=== PATIENT | male | born 1940 | race Caucasian/White ===

== ENCOUNTER 2018-10-10 22:35 | Inpatient (IN) | payer MEDICARE, OTHER ==
[2018-10-10 23:31] LABS: Albumin 4.1 g/dL (3.5-5.0); Calcium 9.9 mg/dL (8.4-10.2); Total Bilirubin 1.7 mg/dL (0.2-1.3); Total Protein 7.8 g/dL (6.3-8.2)
[2018-10-10 23:32] LABS: Anisocytosis Moderate; Basophils % (A) 0 %; Eosinophils % (A) 0 %; HCT 40.1 % (39.0-53.0); HGB 12.5 gm/dL (13.0-17.5); Lymphocytes # (A) 0.5 k/uL (1.0-4.8); Lymphocytes % (A) 5 %; MCHC 31.1 g/dL (31.0-37.0); MCV 93.2 fL (80.0-100.0); Macrocytosis Slight; Mean Platelet Volume 8.9; Monocytes # (A) 0.6 k/uL (0-1.0); Monocytes % (A) 6 %; Neutrophils # (A) 9.3 k/uL (1.3-7.7); Neutrophils % (A) 87 %; Platelet Count 108 k/uL (150-450); WBC 10.7 k/uL (3.8-10.6)
[2018-10-10 23:45] LABS: INR 2.8 (<1.2); Partial Thromboplastin Time 35.2 sec (22.0-30.0); Prothrombin Time 27.3 sec (9.0-12.0)
[2018-10-10 23:47] LABS: D-Dimer 0.96 mg/L FEU (<0.60)
[2018-10-10 23:48] LABS: Potassium 6.3 mmol/L (3.5-5.1)
--- NOTE | 2018-10-10 23:51 | XR ---
ADDENDUM - Added by Smauel Rojas MD on 10/10/2018 11:51 PM (-04:00) Correction of voice recognition typographical error: Previous median sternotomy and CARDIAC surgery. Cardiac pacer. EXAM: XR Chest, 1 View CLINICAL HISTORY: ITS.REASON XR Reason: dyspnea TECHNIQUE: Frontal view of the chest. COMPARISON: Portable chest radiograph 05/29/2014 FINDINGS: Post surgical changes of previous median sternotomy and cardiac surgery. Cardiac pacer has leads extending to region of right atrium and ventricle. Moderate cardiomegaly. Mild pulmonary vascular congestion. Left basilar consolidative opacity. Mild right base subsegmental atelectasis. Minimal right and small left pleural effusions. No evidence of pneumothorax. IMPRESSION: Previous median sternotomy and chronic surgery. Cardiac pacer. Cardiomegaly and mild pulmonary vascular congestion. Left base consolidative opacity suggesting infiltrate or atelectasis. Possibility of pneumonia should be considered. Minimal right and small left pleural effusions. <MYCVCSECTION> [employer] 10/10/18 23:58 Verify Receipt Verified receipt with PATRICK Chakraborty for Dr HOFF in the ER on 10/10 23:57 (-04:00)
[2018-10-11] MEDS ORDERED: INSULIN REGULAR 100 UNIT/ML VIAL IV STA (00:45)
[2018-10-11] MEDS ORDERED: DEXTROSE 50% SYRINGE 50 ML IVP STA (00:45)
[2018-10-11] MEDS ORDERED: SODIUM BICARB 8.4% 50 ML SYR (1 MEQ/ML) IV STA (00:45)
[2018-10-11] MEDS ORDERED: CALCIUM GLUCONATE 1 GM in SODIUM CHLORIDE 0.9% 100 ML IVPB ONE (00:45)
[2018-10-11] MEDS ORDERED: SODIUM POLYSTYRENE SULFONATE 15 GM/60 ML BOTTLE PO STA (00:46)
[2018-10-11] MEDS ORDERED: LEVOFLOXACIN 750 MG TAB PO STA (00:48)
[2018-10-11] MEDS ORDERED: PIPERACILLIN-TAZOBACTAM 3.375 GM in SODIUM CHLORIDE 0.9% 100 ML IVPB STA (00:48)
--- NOTE | 2018-10-11 00:55 | ED ---
SOB HPI - General Chief Complaint: Shortness of Breath Stated Complaint: RAHEEL Time Seen by Provider: 10/10/18 22:48 Source: patient, EMS Mode of arrival: EMS - History of Present Illness Initial Comments: This patient is 77-year-old man, [facility], transferred here to be evaluated for worsening shortness of breath and cough with some sputum. There is concern of worsening of underlying CHF. In addition, the patient's physician Dr. Mcadams had called to state that he had started diuretic [facility] the [facility] but the patient did not seem to be having any improvement. The patient denies chest pain. He does acknowledge dyspnea and also cough with a little bit of sputum. No noted fever or chills. No change in urination or bowel movements. MD Complaint: shortness of breath, cough Onset/Timin -: days(s) Severity: mild Consistency: constant Improves With: nothing Worsens With: nothing Known History Of: COPD, congestive heart failure Associated Symptoms: cough Treatments Prior to Arrival: none - Related Data Home Oxygen Therapy: No Home Medications Medication Instructions Recorded Confirmed Cholecalciferol [Vitamin D3 (25 1,000 unit PO DAILY@169905/26/14 10/10/18 Mcg = 1000 Iu)] Citalopram Hydrobromide [CeleXA] 10 mg PO DAILY 05/26/14 10/10/18 Cyanocobalamin [Vitamin B-12] 1,000 mcg PO DAILY 05/26/14 10/10/18 Docusate [Colace] 100 mg PO DAILY 05/26/14 10/10/18 Isosorbide Mononitrate ER [Imdur] 60 mg PO BID@0800,169905/26/14 10/10/18 Metoprolol Tartrate [Lopressor] 100 mg PO BID@0800,0 05/26/14 10/10/18 Nitroglycerin Sl Tabs [Nitrostat] 0.4 mg SUBLINGUAL Q5M PRN 05/26/14 10/10/18 Ranolazine [Ranexa] 500 mg PO BID@0800,1700 05/26/14 10/10/18 Simvastatin [Zocor] 20 mg PO HS 05/26/14 10/10/18 Sodium Chloride [Saline Nasal Mist] 1 spray EA NOSTRIL 05/26/14 10/10/18 Spironolactone [Aldactone] 25 mg PO DAILY 05/26/14 10/10/18 Acetaminophen Tab [Tylenol] 1,000 mg PO HS PRN 10/10/18 10/10/18 Aspirin 81 mg PO DAILY@1700 10/10/18 10/10/18 Bisacodyl [Dulcolax] 10 mg RECTAL DAILY PRN 10/10/18 10/10/18 Carboxymethylcellulose Sodium 2 drop BOTH EYES DAILY PRN 10/10/18 10/10/18 [Refresh Tears] Fluticasone Nasal [place] [Flonase 1 spray EA NOSTRIL DAILY 10/10/18 10/10/18 Nasal [place]] Fluticasone/Vilanterol [Breo 1 puff INHALATION RT-DAILY@0800 10/10/18 10/10/18 Ellipta 100-25 Mcg Inhaler] Furosemide [Lasix] 40 mg PO DAILY 10/10/18 10/10/18 Gabapentin [Neurontin] 300 mg PO DAILY 10/10/18 10/10/18 Loratadine [Claritin] 10 mg PO DAILY PRN 10/10/18 10/10/18 Magnesium Hydroxide [Milk of 7,200 mg PO DAILY PRN 10/10/18 10/10/18 Magnesia Concentrate] Na Phos,M-B/Na Phos,Di-Ba [Fleet 133 ml RECTAL DAILY PRN 10/10/18 10/10/18 Adult] Nasal Gel 1 applic EA NOSTRIL DAILY PRN 10/10/18 10/10/18 Potassium Chloride [Klor-Con 10] 10 meq PO DAILY@0800 10/10/18 10/10/18 Warfarin Sodium [Coumadin] 2 mg PO SUTUWEFRSA 10/10/18 10/10/18 Warfarin [Coumadin] 3 mg PO MOTH 10/10/18 10/10/18 guaiFENesin [guaiFENesin Oral 200 mg PO Q4H PRN 10/10/18 10/10/18 Solution] metFORMIN HCL [Glucophage] 500 mg PO BID@0800,1700 10/10/18 10/10/18 Previous Rx's Medication Instructions Recorded Allopurinol [Zyloprim] 100 mg PO DAILY tab 05/30/14 Lisinopril [Zestril] 5 mg PO DAILY tab 05/30/14 Allergies Allergy/AdvReac Type Severity Reaction Status Date / Time No Known Allergies Allergy Verified 10/10/18 22:55 Review of Systems ROS Statement: Those systems with pertinent positive or pertinent negative responses have been documented in the HPI. ROS Other: All systems not noted in ROS Statement are negative. Constitutional: Denies: fever, chills Respiratory: Reports: cough, dyspnea Cardiovascular: Denies: chest pain, palpitations, orthopnea, edema, syncope Gastrointestinal: Denies: abdominal pain, vomiting, diarrhea Genitourinary: Denies: dysuria, hematuria Musculoskeletal: Denies: back pain Skin: Denies: rash Neurological: Denies: headache, weakness, numbness Past Medical History Past Medical History: Coronary Artery Disease (CAD), CVA/TIA, Diabetes Mellitus, Myocardial Infarction ([place]) Additional Past Medical History / Comment(s): Congestive heart failure and cardiomyopathy Last Myocardial Infarction Date:: 1999 History of Any Multi-Drug Resistant Organisms: None Reported Past Surgical History: Appendectomy, Coronary Bypass/CABG, Tonsillectomy Additional Past Surgical History / Comment(s): CABG x5 1994 Past Anesthesia/Blood Transfusion Reactions: No Reported Reaction Past Psychological History: No Psychological Hx Reported Smoking Status: Former smoker Past Alcohol Use History: None Reported Past Drug Use History: None Reported - Past Family History Mother Family Medical History: Chest Pain / Angina, Coronary Artery Disease (CAD) General Exam General appearance: alert, in no apparent distress Head exam: Present: atraumatic, normocephalic Neck exam: Present: normal inspection Respiratory exam: Present: rales (Left lower lung), rhonchi. Absent: r espiratory distress, wheezes, stridor, accessory muscle use, decreased breath sounds, prolonged expiratory Cardiovascular Exam: Present: regular rate, normal rhythm, normal heart sounds. Absent: systolic murmur, diastolic murmur, rubs, gallop GI/Abdominal exam: Present: soft. Absent: distended, tenderness, guarding, rebound, rigid, mass Extremities exam: Present: normal inspection, normal capillary refill. Absent: pedal edema, calf tenderness Back exam: Present: normal inspection. Absent: CVA tenderness (R), CVA tenderness (L) Neurological exam: Present: alert Skin exam: Present: warm, dry, normal color, other. Absent: rash Course Vital Signs 0710/10/18 10/11/18 22:37 23:30 00:00 Temperature 97.6 F Pulse Rate 79 90 92 Respiratory 23 19 18 Rate Blood Pressure 104/73 128/77 101/85 O2 Sat by Pulse 99 96 97 Oximetry 10/11/18 10/11/18 01:30 02:00 Temperature Pulse Rate 94 90 Respiratory 18 19 Rate Blood Pressure 93/63 107/46 O2 Sat by Pulse 96 96 Oximetry - Reevaluation(s) Reevaluation #1: 10/11/18 01:38 I received a call from Dr. Mcadams, requesting admission tonight under Dr. Silva, with consultations to pulmonology and to cardiology. Reevaluation #2: 10/11/18 01:50 Patient is found to have mildly elevated d-dimer but the Coumadin level supratherapeutic. Medical Decision Making - Lab Data Result diagrams: 10/15/18 06:16 10/15/18 06:16 Lab Results 10/10/18 10/10/18 10/10/18 Range/Units 11:11 23:04 23:04 WBC 10.7 H (3.8-10.6) k/uL RBC 4.30 (4.30-5.90) m/uL Hgb 12.5 L (13.0-17.5) gm/dL Hct 40.1 (39.0-53.0) % MCV 93.2 (80.0-100.0) fL MCH 29.0 (25.0-35.0) pg MCHC 31.1 (31.0-37.0) g/dL RDW 22.0 H (11.5-15.5) % Plt Count 108 L (150-450) k/uL Neutrophils % 87 % Lymphocytes % 5 % Monocytes % 6 % Eosinophils % 0 % Basophils % 0 % Neutrophils # 9.3 H (1.3-7.7) k/uL Lymphocytes # 0.5 L (1.0-4.8) k/uL Monocytes # 0.6 (0-1.0) k/uL Eosinophils # 0.0 (0-0.7) k/uL Basophils # 0.0 (0-0.2) k/uL Anisocytosis Moderate Macrocytosis Slight PT (9.0-12.0) sec INR (<1.2) APTT (22.0-30.0) sec D-Dimer (<0.60) mg/L FEU Sodium 135 L (137-145) mmol/L Potassium 6.3 H* (3.5-5.1) mmol/L Chloride 104 (98-107) mmol/L Carbon Dioxide 20 L (22-30) mmol/L Anion Gap 11 mmol/L BUN 77 H (9-20) mg/dL Creatinine 1.78 H (0.66-1.25) mg/dL Est GFR (CKD-EPI)AfAm 42 (>60 ml/min/1.73 sqM) Est GFR (CKD-EPI)NonAf 36 (>60 ml/min/1.73 sqM) Glucose 110 H (74-99) mg/dL Calcium 9.9 (8.4-10.2) mg/dL Total Bilirubin 1.7 H (0.2-1.3) mg/dL AST 49 (17-59) U/L ALT 29 (21-72) U/L Alkaline Phosphatase 202 H (38-126) U/L Troponin I (0.000-0.034) ng/mL NT-Pro-B Natriuret Pep pg/mL Total Protein 7.8 (6.3-8.2) g/dL Albumin 4.1 (3.5-5.0) g/dL Urine Color Yellow Urine Appearance Clear (Clear) Urine pH 5.0 (5.0-8.0) Ur Specific [place] 1.015 (1.001-1.035) Urine Protein Negative (Negative) Urine Glucose (UA) Negative (Negative) Urine Ketones Negative (Negative) Urine Blood Negative (Negative) Urine Nitrite Negative (Negative) Urine Bilirubin Negative (Negative) Urine Urobilinogen <2.0 (<2.0) mg/dL Ur Leukocyte Esterase Negative (Negative) 10/10/18 10/10/18 10/10/18 Range/Units 23:04 23:04 23:04 WBC (3.8-10.6) k/uL RBC (4.30-5.90) m/uL Hgb (13.0-17.5) gm/dL Hct (39.0-53.0) % MCV (80.0-100.0) fL MCH (25.0-35.0) pg MCHC (31.0-37.0) g/dL RDW (11.5-15.5) % Plt Count (150-450) k/uL Neutrophils % % Lymphocytes % % Monocytes % % Eosinophils % % Basophils % % Neutrophils # (1.3-7.7) k/uL Lymphocytes # (1.0-4.8) k/uL Monocytes # (0-1.0) k/uL Eosinophils # (0-0.7) k/uL Basophils # (0-0.2) k/uL Anisocytosis Macrocytosis PT 27.3 H (9.0-12.0) sec INR 2.8 H (<1.2) APTT 35.2 H (22.0-30.0) sec D-Dimer 0.96 H (<0.60) mg/L FEU Sodium (137-145) mmol/L Potassium (3.5-5.1) mmol/L Chloride (98-107) mmol/L Carbon Dioxide (22-30) mmol/L Anion Gap mmol/L BUN (9-20) mg/dL Creatinine (0.66-1.25) mg/dL Est GFR (CKD-EPI)AfAm (>60 ml/min/1.73 sqM) Est GFR (CKD-EPI)NonAf (>60 ml/min/1.73 sqM) Glucose (74-99) mg/dL Calcium (8.4-10.2) mg/dL Total Bilirubin (0.2-1.3) mg/dL AST (17-59) U/L ALT (21-72) U/L Alkaline Phosphatase (38-126) U/L Troponin I 0.016 (0.000-0.034) ng/mL NT-Pro-B Natriuret Pep 28264 pg/mL Total Protein (6.3-8.2) g/dL Albumin (3.5-5.0) g/dL Urine Color Urine Appearance (Clear) Urine pH (5.0-8.0) Ur Specific [place] (1.001-1.035) Urine Protein (Negative) Urine Glucose (UA) (Negative) Urine Ketones (Negative) Urine Blood (Negative) Urine Nitrite (Negative) Urine Bilirubin (Negative) Urine Urobilinogen (<2.0) mg/dL Ur Leukocyte Esterase (Negative) - EKG Data -: EKG Interpreted by Me Rate: normal (Underlying rhythm appears to be paced the rate is proximal 90 bpm) Disposition Clinical Impression: Pneumonia, Hyperkalemia, CHF (congestive heart failure), Acute kidney injury, D-dimer, elevated Disposition: ADMITTED IP TO THIS HOSP Condition: Poor Is patient prescribed a controlled substance at d/c from ED?: No
[2018-10-11] MEDS ORDERED: BISACODYL 10 MG SUPP RECTAL PRN (01:46)
[2018-10-11] MEDS ORDERED: NITROGLYCERIN SL TABS 0.4 MG TAB SUBLINGUAL PRN (01:46)
[2018-10-11] MEDS ORDERED: MAGNESIUM HYDROXIDE 2,400 MG/10 ML CUP PO PRN (01:46)
[2018-10-11] MEDS ORDERED: CARBOXYMETHYLCELLULOSE SODIUM BOTH EYES PRN (01:46)
[2018-10-11 03:16] VITALS: BMI 31.6
[2018-10-11 06:15] LABS: Glucose,Whole Blood 92 mg/dL (75-99)
[2018-10-11] MEDS: SYMBICORT 80-4.5 MCG INHALER INHALATION SCH ×2 (07:46→19:54)
[2018-10-11 07:50] LABS: Calcium 9.9 mg/dL (8.4-10.2); Potassium 5.2 mmol/L (3.5-5.1)
[2018-10-11] MEDS ORDERED: ISOSORBIDE MONONITRATE ER 60 MG TAB.ER.24H PO SCH (08:00)
[2018-10-11 08:43] LABS: Anisocytosis Moderate; Basophils % (A) 0 %; Eosinophils # (A) 0.1 k/uL (0-0.7); Eosinophils % (A) 1 %; HCT 37.6 % (39.0-53.0); HGB 11.6 gm/dL (13.0-17.5); Hypochromasia Moderate; Lymphocytes # (A) 0.6 k/uL (1.0-4.8); Lymphocytes % (A) 6 %; MCH 29.1 pg (25.0-35.0); MCHC 30.9 g/dL (31.0-37.0); Macrocytosis Slight; Mean Platelet Volume 9.1; Monocytes # (A) 0.7 k/uL (0-1.0); Monocytes % (A) 7 %; Neutrophils # (A) 8.3 k/uL (1.3-7.7); Neutrophils % (A) 84 %; Platelet Count 92 k/uL (150-450); RDW 22.9 % (11.5-15.5); WBC 9.9 k/uL (3.8-10.6)
[2018-10-11] MEDS ORDERED: SPIRONOLACTONE 25 MG TAB PO SCH (09:00)
[2018-10-11] MEDS ORDERED: FUROSEMIDE 40 MG TAB PO SCH (09:00)
[2018-10-11] MEDS: CYANOCOBALAMIN 500 MCG TAB PO SCH (09:27)
[2018-10-11] MEDS: GABAPENTIN 300 MG CAP PO SCH (09:28)
[2018-10-11] MEDS: metFORMIN 500 MG TAB PO SCH ×2 (09:28→17:06)
[2018-10-11] MEDS: LISINOPRIL 5 MG TAB PO SCH (09:28)
[2018-10-11] MEDS: DOCUSATE 100 MG CAP PO SCH (09:28)
[2018-10-11] MEDS: METOPROLOL TARTRATE 50 MG TAB PO SCH ×2 (09:28→17:05)
[2018-10-11] MEDS: PIPERACILLIN-TAZOBACTAM 3.375 GM in SODIUM CHLORIDE 0.9% 100 ML IVPB SCH ×3 (09:29→23:16)
[2018-10-11 10:30] LABS: Poikilocytosis (M) Present; Target Cells Present
[2018-10-11] MEDS ORDERED: FUROSEMIDE 10 MG/ML 4 ML VIAL ONE (10:31)
[2018-10-11] MEDS ORDERED: FUROSEMIDE 10 MG/ML 4 ML VIAL IV STA (10:43)
--- NOTE | 2018-10-11 11:06 | P.CRDCN ---
History of Present Illness Consult date: 10/11/18 Requesting physician: Josie Silva Consult reason: congestive heart failure Chief complaint: Shortness of breath History of present illness: This is a 77-year-old gentleman with history of ischemic heart disease and prior bypass surgery, history of prior pacemaker implantation, acute on chronic renal failure, ischemic cardio myopathy, prior TIA, diabetes, hypertension, hyperlipidemia, presents to the hospital on this occasion with symptoms of progressively worsening shortness of breath. Patient was initiated on diuretics in the shelter, his symptoms did not seem to improve and for this reason he was advised to come to the hospital for further evaluation and treatment. Chest x-ray showed cardiomegaly and mild pulmonary vascular congestion, left base consolidative [place] suggests possible infiltrate. EKG on presentation here shows a ventricular paced rhythm. Blood pressure 108/46 with a heart rate of 90, 96% on 5 L of oxygen. White blood cell count 10.7, hemoglobin 12.5, platelet count 108. D-dimer 0.9, INR 3.0, sodium 135, potassium 6.3, BUN 77 and creatinine 1.7, total bilirubin 1.7, alk phos 202, troponin 0.016, BNP level 18,100. Patient had not been initiated on IV Lasix on presentation here, he is treated currently with antibiotics at the time of my examination this morning, patient complaining of feeling significantly short of breath. Past Medical History Past Medical History: Coronary Artery Disease (CAD), CVA/TIA, Diabetes Mellitus, Myocardial Infarction ([place]) Additional Past Medical History / Comment(s): Congestive heart failure and cardiomyopathy, Pacemaker (unsure of insertion date) Last Myocardial Infarction Date:: 1999 History of Any Multi-Drug Resistant Organisms: None Reported Past Surgical History: Appendectomy, Coronary Bypass/CABG, Tonsillectomy Additional Past Surgical History / Comment(s): CABG x5 1994 Past Anesthesia/Blood Transfusion Reactions: No Reported Reaction Past Psychological History: No Psychological Hx Reported Smoking Status: Former smoker Past Alcohol Use History: None Reported Past Drug Use History: None Reported - Past Family History Mother Family Medical History: Chest Pain / Angina, Coronary Artery Disease (CAD) Medications and Allergies Home Medications Medication Instructions Recorded Confirmed Type Cholecalciferol [Vitamin D3 (25 1,000 unit PO DAILY@1700 05/26/14 10/10/18 History Mcg = 1000 Iu)] Citalopram Hydrobromide [CeleXA] 10 mg PO DAILY 05/26/14 10/10/18 History Cyanocobalamin [Vitamin B-12] 1,000 mcg PO DAILY 05/26/14 10/10/18 History Docusate [Colace] 100 mg PO DAILY 05/26/14 10/10/18 History Isosorbide Mononitrate ER [Imdur] 60 mg PO BID@0800,1700 05/26/14 10/10/18 History Metoprolol Tartrate [Lopressor] 100 mg PO BID@0800,1700 05/26/14 10/10/18 History Nitroglycerin Sl Tabs [Nitrostat] 0.4 mg SUBLINGUAL Q5M PRN 05/26/14 10/10/18 History Ranolazine [Ranexa] 500 mg PO BID@0800,1700 05/26/14 10/10/18 History Simvastatin [Zocor] 20 mg PO HS 05/26/14 10/10/18 History Sodium Chloride [Saline Nasal Mist] 1 spray EA NOSTRIL HS 05/26/14 10/10/18 History Spironolactone [Aldactone] 25 mg PO DAILY 05/26/14 10/10/18 History Allopurinol [Zyloprim] 100 mg PO DAILY tab 05/30/14 10/10/18 Rx Lisinopril [Zestril] 5 mg PO DAILY tab 05/30/14 10/10/18 Rx Acetaminophen Tab [Tylenol] 1,000 mg PO HS PRN 10/10/18 10/10/18 History Aspirin 81 mg PO DAILY@1700 10/10/18 10/10/18 History Bisacodyl [Dulcolax] 10 mg RECTAL DAILY PRN 10/10/18 10/10/18 History Carboxymethylcellulose Sodium 2 drop BOTH EYES DAILY PRN 10/10/18 10/10/18 History [Refresh Tears] Fluticasone Nasal [place] [Flonase 1 spray EA NOSTRIL DAILY 10/10/18 10/10/18 History Nasal [place]] Fluticasone/Vilanterol [Breo 1 puff INHALATION RT-DAILY@0800 10/10/18 10/10/18 History Ellipta 100-25 Mcg Inhaler] Furosemide [Lasix] 40 mg PO DAILY 10/10/18 10/10/18 History Gabapentin [Neurontin] 300 mg PO DAILY 10/10/18 10/10/18 History Loratadine [Claritin] 10 mg PO DAILY PRN 10/10/18 10/10/18 History Magnesium Hydroxide [Milk of 7,200 mg PO DAILY PRN 10/10/18 10/10/18 History Magnesia Concentrate] Na Phos,M-B/Na Phos,Di-Ba [Fleet 133 ml RECTAL DAILY PRN 10/10/18 10/10/18 History Adult] Nasal Gel 1 applic EA NOSTRIL DAILY PRN 10/10/18 10/10/18 History Potassium Chloride [Klor-Con 10] 10 meq PO DAILY@0800 10/10/18 10/10/18 History Warfarin Sodium [Coumadin] 2 mg PO SUTUWEFRSA 10/10/18 10/10/18 History Warfarin [Coumadin] 3 mg PO MOTH 10/10/18 10/10/18 History guaiFENesin [guaiFENesin Oral 200 mg PO Q4H PRN 10/10/18 10/10/18 History Solution] metFORMIN HCL [Glucophage] 500 mg PO BID@0800,1700 10/10/18 10/10/18 History Allergies Allergy/AdvReac Type Severity Reaction Status Date / Time No Known Allergies Allergy Verified 10/10/18 22:55 Physical Exam Vitals: Vital Signs Temp Pulse Pulse Resp BP BP Pulse Ox 10/11/18 04:00 97.6 F 88 22 99/60 92 L 10/11/18 03:03 98.4 F 96 23 105/72 96 10/11/18 02:00 90 19 107/46 96 10/11/18 01:30 94 18 93/63 96 10/11/18 00:00 92 18 101/85 97 10/10/18 23:30 90 19 128/77 96 10/10/18 22:37 97.6 F 79 23 104/73 99 Intake and Output 10/10/18 10/11/18 10/11/18 22:59 06:59 14:59 Intake Total 290 240 Output Total 250 350 Balance 40 -110 Intake: IV 30 0.9 20 Invasive Line 1 10 Intake, IV Titration 200 Amount Calcium Gluconate 1 gm In 100 Sodium Chloride 0.9% 100 ml @ 100 mls/hr IVPB ONCE ONE Rx#:[id number] Piperacillin-Tazobactam 3 100 .375 gm In Sodium Chloride 0.9% 100 ml @ 25 mls/hr IVPB Q8HR [facility] Rx# :[id number] Oral 60 240 Output: Urine 250 350 Other: Voiding Method Urinal Diaper # Voids 1 1 Weight 104.326 kg 106 kg PHYSICAL EXAMINATION: GENERAL: 77-year-old gentleman, complaining of feeling short of breath at the time of my examination HEENT: Head is atraumatic, normocephalic. Pupils equal, round. Sclera anicteric. Conjunctiva are clear. Mucous membranes of the mouth are moist. Neck is supple. There is elevated jugular venous pressure. No carotid bruit is heard. HEART EXAMINATION: Heart S1, S2 normal. No murmur or gallop heard. CHEST EXAMINATION: Lungs reveal diminished air entry bilaterally with rales heard bilaterally. ABDOMEN: Soft, nontender. Bowel sounds are heard. No organomegaly noted. EXTREMITIES:[ 2+ peripheral pulses with 1-2+ evidence of peripheral edema NEUROLOGIC patient is awake, alert and oriented 3 . . Results 10/11/18 07:08 10/11/18 07:08 Cardiac Enzymes 10/10/18 10/10/18 Range/Units 23:04 23:04 AST 49 (17-59) U/L Troponin I 0.016 (0.000-0.034) ng/mL Coagulation 10/10/18 10/11/18 Range/Units 23:04 07:08 PT 27.3 H 29.0 H (9.0-12.0) sec APTT 35.2 H (22.0-30.0) sec CBC 10/10/18 10/11/18 Range/Units 23:04 07:08 WBC 10.7 H 9.9 (3.8-10.6) k/uL RBC 4.30 4.00 L (4.30-5.90) m/uL Hgb 12.5 L 11.6 L (13.0-17.5) gm/dL Hct 40.1 37.6 L (39.0-53.0) % Plt Count 108 L 92 L (150-450) k/uL Comprehensive Metabolic Panel 10/10/18 10/11/18 Range/Units 23:04 07:08 Sodium 135 L 136 L (137-145) mmol/L Potassium 6.3 H* 5.2 H (3.5-5.1) mmol/L Chloride 104 106 (98-107) mmol/L Carbon Dioxide 20 L 18 L (22-30) mmol/L BUN 77 H 71 H (9-20) mg/dL Creatinine 1.78 H 1.63 H (0.66-1.25) mg/dL Glucose 110 H 84 (74-99) mg/dL Calcium 9.9 9.9 (8.4-10.2) mg/dL AST 49 (17-59) U/L ALT 29 (21-72) U/L Alkaline Phosphatase 202 H (38-126) U/L Total Protein 7.8 (6.3-8.2) g/dL Albumin 4.1 (3.5-5.0) g/dL Current Medications Generic Name Dose Route Start Last Admin Trade Name Freq PRN Reason Stop Dose Admin Acetaminophen 1,000 mg 10/11/18 01:46 Tylenol Tab PO HS PRN Pain Aspirin 81 mg 10/11/18 17:00 Aspirin PO DAILY@1700 [facility] Atorvastatin Calcium 10 mg 10/11/18 21:00 Lipitor PO HS GRACE Bisacodyl 10 mg 10/11/18 01:46 Dulcolax RECTAL DAILY PRN Constipation Budesonide/Formoterol Fumarate 2 puff 10/11/18 08:00 10/11/18 07:46 Symbicort 80-4.5 Mcg Inhaler INHALATION 2 puff RT-BID GRACE Administration Cholecalciferol 1,000 unit 10/11/18 17:00 Vitamin D3 (25 Mcg = 1000 Iu) PO DAILY@1700 [facility] Cyanocobalamin 1,000 mcg 10/11/18 09:00 10/11/18 09:27 Vitamin B-12 PO 1,000 mcg DAILY [facility] Administration Docusate Sodium 100 mg 10/11/18 09:00 10/11/18 09:28 Colace PO 100 mg DAILY [facility] Administration Furosemide 40 mg 10/11/18 09:00 10/11/18 09:28 Lasix PO 40 mg DAILY [facility] Administration Gabapentin 300 mg 10/11/18 09:00 10/11/18 09:28 Neurontin PO 300 mg DAILY [facility] Administration Piperacillin Sod/Tazobactam 100 mls @ 25 mls/hr 10/11/18 08:00 10/11/18 09:29 Sod 3.375 gm/ Sodium Chloride IVPB 25 mls/hr Q8HR [facility] Administration Isosorbide Mononitrate 60 mg 10/11/18 08:00 10/11/18 09:28 Imdur PO 60 mg BID@0800,1700 [facility] Administration Levofloxacin 750 mg 10/13/18 01:00 Levaquin PO Q48H [facility] Lisinopril 5 mg 10/11/18 09:00 10/11/18 09:28 Zestril PO 5 mg DAILY [facility] Administration Magnesium Hydroxide 2,400 mg 10/11/18 01:46 Milk Of Magnesia PO DAILY PRN Constipation Metformin HCl 500 mg 10/11/18 08:00 10/11/18 09:28 Glucophage PO 500 mg BID@0800,1700 [facility] Administration Metoprolol Tartrate 100 mg 10/11/18 08:00 10/11/18 09:28 Lopressor PO 100 mg BID@0800,1700 [facility] Administration Sodium Chloride 10 ml 10/11/18 09:00 10/11/18 09:29 Saline Flush IV 10 ml BID [facility] Administration Spironolactone 25 mg 10/11/18 09:00 10/11/18 09:28 Aldactone PO 25 mg DAILY [facility] Administration Warfarin Sodium 2 mg 10/11/18 18:00 Coumadin PO SuTuWeFrSa@1800 [facility] Warfarin Sodium 3 mg 10/12/18 18:00 Coumadin PO MoTh@1800 [facility] Intake and Output 10/10/18 10/11/18 10/11/18 22:59 06:59 14:59 Intake Total 290 240 Output Total 250 350 Balance 40 -110 Intake: IV 30 0.9 20 Invasive Line 1 10 Intake, IV Titration 200 Amount Calcium Gluconate 1 gm In 100 Sodium Chloride 0.9% 100 ml @ 100 mls/hr IVPB ONCE ONE Rx#:[id number] Piperacillin-Tazobactam 3 100 .375 gm In Sodium Chloride 0.9% 100 ml @ 25 mls/hr IVPB Q8HR [facility] Rx# :[id number] Oral 60 240 Output: Urine 250 350 Other: Voiding Method Urinal Diaper # Voids 1 1 Weight 104.326 kg 106 kg 10/11/18 07:08 10/11/18 07:08 EKG Interpretations (text) EKG shows a ventricular paced rhythm. Assessment and Plan Plan: Assessment and plan #1 symptoms of progressively worsening shortness of breath with associated bilateral edema, likely exacerbation of congestive heart failure, diastolic in nature, with associated possible pneumonia #2 known history of coronary artery disease with prior bypass surgery #3 hypertension #4 diabetes #5 hyperlipidemia #6 history of permanent pacemaker implantation in 2014 for complete heart block #7 acute on chronic renal failure #8 prior TIA Plan We will give the patient one time dose of IV Lasix and start the patient on 40 mg of IV Lasix twice a day. Monitor intake and output along with daily weights and daily lytes BUN and creatinine. Further recommendations to follow. DNP note has been reviewed, I agree with a documented findings and plan of care. Patient was seen and examined.
--- NOTE | 2018-10-11 11:37 | ECHOF ---
Referral Reason:CHF exacerbation MEASUREMENTS -------- HEIGHT: 182.9 cm WEIGHT: 104.3 kg BP: 99/60 RVIDd: 3.3 cm (< 3.3) IVSd: 1.1 cm (0.6 - 1.1) LVIDd: 5.3 cm (3.9 - 5.3) LVPWd: 1.1 cm (0.6 - 1.1) IVSs: 1.2 cm LVIDs: 4.9 cm LVPWs: 1.5 cm LAESV Index (A-L): 27.39 ml/m Ao Diam: 3.2 cm (2.0 - 3.7) AV Cusp: 1.4 cm (1.5 - 2.6) LA Diam: 3.7 cm (2.7 - 3.8) MV EXCURSION: 14.837 mm (> 18.000) MV EF SLOPE: 166 mm/s (70 - 150) EPSS: 1.5 cm MV E Billy: 0.83 m/s MV DecT: 189 ms MV A Billy: 0.86 m/s MV E/A Ratio: 0.96 AV maxP.20 mmHg AV meanP.34 mmHg RAP: 5.00 mmHg RVSP: 52.51 mmHg FINDINGS -------- Sinus rhythm with extra systolic beats. This was a technically difficult study with suboptimal views. The left ventricular size is normal. There is mild concentric left ventricular hypertrophy. There is moderate global hypokinesis of LV . Overall left ventricular systolic function is severely impa ired with, an EF between 20 - 25 %. Mitral Doppler inflow pattern suggests diastolic filling abnorm ality 15.25. Septal wall motion is delayed and consistent with prior cardiac surgery. The right ventricle is mildly enlarged. Normal LA size by volume 22+/-6 ml/m2. The right atrium is moderately enlarged. Electronic pacemaker lead seen in the right atrial cavity. Lumason used Interatrial and interventricular septum intact. There is szydladc-aq-ehvqpv aortic stenosis present. Peak/mean gradient across the Aortic Valve is 37.20mmHg / 23.34mmHg. Mild mitral annular calcification present. Munt-ye-rglgcugq mitral regurgitation is present. Moderate tricuspid regurgitation present. There is moderate pulmonary hypertension. The right austyn tricular systolic pressure, as measured by Doppler, is 52.51mmHg. There is no pulmonic regurgitation present. The aortic root size is normal. Normal inferior vena cava with normal inspiratory collapse consistent with estimated right atrial pre ssure of 5 mmHg. There is no pericardial effusion. CONCLUSIONS -------- 1. Sinus rhythm with extra systolic beats. 2. This was a technically difficult study with suboptimal views. 3. The left ventricular size is normal. 4. There is mild concentric left ventricular hypertrophy. 5. There is moderate global hypokinesis of LV . 6. Overall left ventricular systolic function is severely impaired with, an EF between 20 - 25 %. 7. Mitral Doppler inflow pattern suggest diastolic filling abnormality 15.25. 8. Septal wall motion is delayed and consistent with prior cardiac surgery. 9. The right ventricle is mildly enlarged. 10. Normal LA size by volume 22+/-6 ml/m2. 11. The right atrium is moderately enlarged. 12. Electronic pacemaker lead seen in the right atrial cavity. 13. Lumason used 14. Interatrial and interventricular septum intact. 15. There is biykimxt-pr-hztawr aortic stenosis present. 16. Peak/mean gradient across the Aortic Valve is 37.20mmHg / 23.34mmHg. 17. Mild mitral annular calcification present. 18. Itqw-tz-zehxecew mitral regurgitation is present. 19. Moderate tricuspid regurgitation present. 20. There is moderate pulmonary hypertension. 21. The right ventricular systolic pressure, as measured by Doppler, is 52.51mmHg. 22. There is no pulmonic regurgitation present. 23. The aortic root size is normal. 24. Normal inferior vena cava with normal inspiratory collapse consistent with estimated right atrial pressure of 5 mmHg. 25. There is no pericardial effusion. [employer] ARC: Gisele Tolentino RDCS
[2018-10-11 11:57] LABS: Glucose,Whole Blood 86 mg/dL (75-99)
--- NOTE | 2018-10-11 12:10 | P.HPIM ---
History of Present Illness Chief Complaint: Shortness of breath and cough This very pleasant 77-year-old gentleman who comes into the ER for above- mentioned complaint. Patient says that he lives in long term. He is hard of hearing but is alert oriented 3. He said that for the past few days, he's been having more shortness of breath and usual. His doctor in the long term started him on water pills but he was still short of breath and is coughing still so he was brought into the ER for further evaluation and management. Patient otherwise does not complain of any chest pain, no racing heart, no abdominal pain, nausea and vomiting, or diarrhea constipation, no tingling numbness on his extremities, no itch no rash ER course-vitals the time of admission showed temperature 98.4 pulse 96 blood pressure 105/72 satting 96% on 4 L. Labwork on admission showed WAC 10.7 hemoglobin 12.5 platelets 108 d-dimer 0.96 sodium 135 potassium 6.3 B1 77 creatinine 1.78 AST 49 ALT 29 alk phos 202 albumin 4.1. Chest x-ray shows findings suggestive of congestion and also there is left lower lobe obesity indicating possible pneumonia. patient was started on Levaquin and Zosyn, he was also started on Lasix 40 mg daily and admitted to the hospitalist service a further evaluation and management. Review of Systems All systems: negative Past Medical History Past Medical History: Coronary Artery Disease (CAD), CVA/TIA, Diabetes Mellitus, Myocardial Infarction ([place]) Additional Past Medical History / Comment(s): Congestive heart failure and cardiomyopathy, Pacemaker (unsure of insertion date) Last Myocardial Infarction Date:: 1999 History of Any Multi-Drug Resistant Organisms: None Reported Past Surgical History: Appendectomy, Coronary Bypass/CABG, Tonsillectomy Additional Past Surgical History / Comment(s): CABG x5 1994 Past Anesthesia/Blood Transfusion Reactions: No Reported Reaction Past Psychological History: No Psychological Hx Reported Smoking Status: Former smoker Past Alcohol Use History: None Reported Past Drug Use History: None Reported - Past Family History Mother Family Medical History: Chest Pain / Angina, Coronary Artery Disease (CAD) Medications and Allergies Home Medications Medication Instructions Recorded Confirmed Type Cholecalciferol [Vitamin D3 (25 1,000 unit PO DAILY@1700 05/26/14 10/10/18 History Mcg = 1000 Iu)] Citalopram Hydrobromide [CeleXA] 10 mg PO DAILY 05/26/14 10/10/18 History Cyanocobalamin [Vitamin B-12] 1,000 mcg PO DAILY 05/26/14 10/10/18 History Docusate [Colace] 100 mg PO DAILY 05/26/14 10/10/18 History Isosorbide Mononitrate ER [Imdur] 60 mg PO BID@0800,1700 05/26/14 10/10/18 History Metoprolol Tartrate [Lopressor] 100 mg PO BID@0800,1700 05/26/14 10/10/18 History Nitroglycerin Sl Tabs [Nitrostat] 0.4 mg SUBLINGUAL Q5M PRN 05/26/14 10/10/18 History Ranolazine [Ranexa] 500 mg PO BID@0800,1700 05/26/14 10/10/18 History Simvastatin [Zocor] 20 mg PO HS 05/26/14 10/10/18 History Sodium Chloride [Saline Nasal Mist] 1 spray EA NOSTRIL HS 05/26/14 10/10/18 History Spironolactone [Aldactone] 25 mg PO DAILY 05/26/14 10/10/18 History Allopurinol [Zyloprim] 100 mg PO DAILY tab 05/30/14 10/10/18 Rx Lisinopril [Zestril] 5 mg PO DAILY tab 05/30/14 10/10/18 Rx Acetaminophen Tab [Tylenol] 1,000 mg PO HS PRN 10/10/18 10/10/18 History Aspirin 81 mg PO DAILY@1700 10/10/18 10/10/18 History Bisacodyl [Dulcolax] 10 mg RECTAL DAILY PRN 10/10/18 10/10/18 History Carboxymethylcellulose Sodium 2 drop BOTH EYES DAILY PRN 10/10/18 10/10/18 History [Refresh Tears] Fluticasone Nasal [place] [Flonase 1 spray EA NOSTRIL DAILY 10/10/18 10/10/18 History Nasal [place]] Fluticasone/Vilanterol [Breo 1 puff INHALATION RT-DAILY@0800 10/10/18 10/10/18 History Ellipta 100-25 Mcg Inhaler] Furosemide [Lasix] 40 mg PO DAILY 10/10/18 10/10/18 History Gabapentin [Neurontin] 300 mg PO DAILY 10/10/18 10/10/18 History Loratadine [Claritin] 10 mg PO DAILY PRN 10/10/18 10/10/18 History Magnesium Hydroxide [Milk of 7,200 mg PO DAILY PRN 10/10/18 10/10/18 History Magnesia Concentrate] Na Phos,M-B/Na Phos,Di-Ba [Fleet 133 ml RECTAL DAILY PRN 10/10/18 10/10/18 History Adult] Nasal Gel 1 applic EA NOSTRIL DAILY PRN 10/10/18 10/10/18 History Potassium Chloride [Klor-Con 10] 10 meq PO DAILY@0800 10/10/18 10/10/18 History Warfarin Sodium [Coumadin] 2 mg PO SUTUWEFRSA 10/10/18 10/10/18 History Warfarin [Coumadin] 3 mg PO MOTH 10/10/18 10/10/18 History guaiFENesin [guaiFENesin Oral 200 mg PO Q4H PRN 10/10/18 10/10/18 History Solution] metFORMIN HCL [Glucophage] 500 mg PO BID@0800,1700 10/10/18 10/10/18 History Allergies Allergy/AdvReac Type Severity Reaction Status Date / Time No Known Allergies Allergy Verified 10/10/18 22:55 Physical Exam Vitals: Vital Signs Temp Pulse Pulse Resp BP BP Pulse Ox 10/11/18 04:00 97.6 F 88 22 99/60 92 L 10/11/18 03:03 98.4 F 96 23 105/72 96 10/11/18 02:00 90 19 107/46 96 10/11/18 01:30 94 18 93/63 96 10/11/18 00:00 92 18 101/85 97 10/10/18 23:30 90 19 128/77 96 10/10/18 22:37 97.6 F 79 23 104/73 99 Intake and Output 10/10/18 10/11/18 10/11/18 22:59 06:59 14:59 Intake Total 290 240 Output Total 250 350 Balance 40 -110 Intake: IV 30 0.9 20 Invasive Line 1 10 Intake, IV Titration 200 Amount Calcium Gluconate 1 gm In 100 Sodium Chloride 0.9% 100 ml @ 100 mls/hr IVPB ONCE ONE Rx#:[id number] Piperacillin-Tazobactam 3 100 .375 gm In Sodium Chloride 0.9% 100 ml @ 25 mls/hr IVPB Q8HR [facility] Rx# :[id number] Oral 60 240 Output: Urine 250 350 Other: Voiding Method Urinal Diaper # Voids 1 1 Weight 104.326 kg 106 kg 106 kg On exam, alert and oriented x3. HEENT: Conjunctivae normal. eyes normal. NECK: Mild JVD elevation. No thyroid enlargement. No LNs CARDIOVASCULAR: S1, S2 muffled. No murmur RESPIRATION: Breath sounds diminished in the bases. crackles appreciated at the left base ABDOMEN: Soft, nontender . No guarding. no masses palpable. No ascites, No hep atosplenomegaly.Bowel sounds heard. LEGS: +1 Pitting edema NERVOUS SYSTEM: Cranial N 2-12 grossly normal. Moves all 4 limbs. No focal deficits. No sensory deficit. No signs of cerebellar dysfucntion. Skin: no ulcer no rash Results CBC & Chem 7: 10/11/18 07:08 10/11/18 07:08 Labs: Abnormal Lab Results - Last 24 Hours (Table) 10/10/18 10/10/18 10/10/18 Range/Units 23:04 23:04 23:04 WBC 10.7 H (3.8-10.6) k/uL RBC (4.30-5.90) m/uL Hgb 12.5 L (13.0-17.5) gm/dL Hct (39.0-53.0) % MCHC (31.0-37.0) g/dL RDW 22.0 H (11.5-15.5) % Plt Count 108 L (150-450) k/uL Neutrophils # 9.3 H (1.3-7.7) k/uL Lymphocytes # 0.5 L (1.0-4.8) k/uL PT 27.3 H (9.0-12.0) sec INR 2.8 H (<1.2) APTT 35.2 H (22.0-30.0) sec D-Dimer 0.96 H (<0.60) mg/L FEU Sodium 135 L (137-145) mmol/L Potassium 6.3 H* (3.5-5.1) mmol/L Carbon Dioxide 20 L (22-30) mmol/L BUN 77 H (9-20) mg/dL Creatinine 1.78 H (0.66-1.25) mg/dL Glucose 110 H (74-99) mg/dL Total Bilirubin 1.7 H (0.2-1.3) mg/dL Alkaline Phosphatase 202 H (38-126) U/L 10/11/18 10/11/18 10/11/18 Range/Units 07:08 07:08 07:08 WBC (3.8-10.6) k/uL RBC 4.00 L (4.30-5.90) m/uL Hgb 11.6 L (13.0-17.5) gm/dL Hct 37.6 L (39.0-53.0) % MCHC 30.9 L (31.0-37.0) g/dL RDW 22.9 H (11.5-15.5) % Plt Count 92 L (150-450) k/uL Neutrophils # 8.3 H (1.3-7.7) k/uL Lymphocytes # 0.6 L (1.0-4.8) k/uL PT 29.0 H (9.0-12.0) sec INR 3.0 H (<1.2) APTT (22.0-30.0) sec D-Dimer (<0.60) mg/L FEU Sodium 136 L (137-145) mmol/L Potassium 5.2 H (3.5-5.1) mmol/L Carbon Dioxide 18 L (22-30) mmol/L BUN 71 H (9-20) mg/dL Creatinine 1.63 H (0.66-1.25) mg/dL Glucose (74-99) mg/dL Total Bilirubin (0.2-1.3) mg/dL Alkaline Phosphatase (38-126) U/L Thrombosis Risk Factor Assmnt - Choose All That Apply Any of the Below Risk Factors Present?: Yes Each Factor Represents 1 point: Obesity (BMI >25), Serious lung disease incl. pneumonia (< 1month), Swollen legs (current) Other Risk Factors: Yes Each Risk Factor Represents 3 Points: Age 75 years or older Other congenital or acquired thrombophilia - If yes, enter type in comment: No Thrombosis Risk Factor Assessment Total Risk Factor Score: 6 Thrombosis Risk Factor Assessment Level: High Risk Assessment and Plan Assessment: - Acute respiratory failure multifactorial due to acute CHF exacerbation and possible pneumonia - Acute CHF exacerbation with diastolic dysfunction - Possible pneumonia rule out healthcare associated pneumonia versus gram- negative pneumonia - MATIAS on CKD - Hypertension - Hyperlipidemia - Diabetes mellitus - History of permanent pacemaker. Status post complete heart block - History of TIA Plan - We'll admit the patient to selective floor with telemetry - Patient needs to be on IV Lasix as he has evidence of CHF exacerbation. He's having congestive changes , He has lower extremity edema and he has JVD elevation. Lasix already started by cardiology - We'll continue antibiotics for now and see how he responds. Antibiotics can be changed depending upon the patient's condition - We'll continue aggressive medical care and continue rest of medications - Monitor kidney functions - We'll repeat labs in the morning - Expected length of stay more than 2 midnights - Patient is full code
[2018-10-11 12:38] LABS: Hemoglobin A1C 6.3 % (4.0-6.0)
[2018-10-11 13:12] LABS: Appearance,Urine Clear (Clear); Bilirubin,Urine Negative (Negative); Blood,Urine Negative (Negative); Color,Urine Yellow; Glucose,Urine (UA) Negative (Negative); Ketones,Urine Negative (Negative); Leukocyte Esterase,Urine Negative (Negative); Nitrite,Urine Negative (Negative); Protein,Urine Negative (Negative); Specific Gravity,Urine 1.015 (1.001-1.035); Urobilinogen,Urine <2.0 mg/dL (<2.0)
--- NOTE | 2018-10-11 16:05 | P.CNPUL ---
History of Present Illness Consult date: 10/11/18 Reason for consult: dyspnea, cough, pneumonia, obstructive sleep apnea Chief complaint: Shortness of breath and cough History of present illness: Since M7-year-old male who was seen evaluated examined on third floor this patient is well-known to me he is a resident of [facility] he has severe sleep apnea he uses BiPAP machine each night and when necessary during the day, he has a chronic hypoxia and on oxygen-dependent ready for 7 significant history of COPD, ischemic heart disease status post CABG for last few days patient has been more short of breath brought into the emergency department for further evaluation he was found to have increased swelling of the lower extremity his BNP level was 18,000 him a chest x-ray performed in the event his department revealed that patient has CHF-like changes with pulmonary vascular congestion and left basilar pneumonia with right subsegmental atelectasis, patient has been placed on broad-spectrum antibiotics, will require breathing treatments and short course of IV steroids as well Review of Systems All systems: negative Past Medical History Past Medical History: Coronary Artery Disease (CAD), CVA/TIA, Diabetes Mellitus, Myocardial Infarction ([place]) Additional Past Medical History / Comment(s): Congestive heart failure and cardiomyopathy, Pacemaker (unsure of insertion date) Last Myocardial Infarction Date:: 1999 History of Any Multi-Drug Resistant Organisms: None Reported Past Surgical History: Appendectomy, Coronary Bypass/CABG, Tonsillectomy Additional Past Surgical History / Comment(s): CABG x5 1994 Past Anesthesia/Blood Transfusion Reactions: No Reported Reaction Past Psychological History: No Psychological Hx Reported Smoking Status: Former smoker Past Alcohol Use History: None Reported Past Drug Use History: None Reported - Past Family History Mother Family Medical History: Chest Pain / Angina, Coronary Artery Disease (CAD) Medications and Allergies Home Medications Medication Instructions Recorded Confirmed Type Cholecalciferol [Vitamin D3 (25 1,000 unit PO DAILY@1700 05/26/14 10/10/18 Histo ry Mcg = 1000 Iu)] Citalopram Hydrobromide [CeleXA] 10 mg PO DAILY 05/26/14 10/10/18 History Cyanocobalamin [Vitamin B-12] 1,000 mcg PO DAILY 05/26/14 10/10/18 History Docusate [Colace] 100 mg PO DAILY 05/26/14 10/10/18 History Isosorbide Mononitrate ER [Imdur] 60 mg PO BID@0800,1700 05/26/14 10/10/18 History Metoprolol Tartrate [Lopressor] 100 mg PO BID@0800,1700 05/26/14 10/10/18 History Nitroglycerin Sl Tabs [Nitrostat] 0.4 mg SUBLINGUAL Q5M PRN 05/26/14 10/10/18 History Ranolazine [Ranexa] 500 mg PO BID@0800,1700 05/26/14 10/10/18 History Simvastatin [Zocor] 20 mg PO HS 05/26/14 10/10/18 History Sodium Chloride [Saline Nasal Mist] 1 spray EA NOSTRIL HS 05/26/14 10/10/18 History Spironolactone [Aldactone] 25 mg PO DAILY 05/26/14 10/10/18 History Allopurinol [Zyloprim] 100 mg PO DAILY tab 05/30/14 10/10/18 Rx Lisinopril [Zestril] 5 mg PO DAILY tab 05/30/14 10/10/18 Rx Acetaminophen Tab [Tylenol] 1,000 mg PO HS PRN 10/10/18 10/10/18 History Aspirin 81 mg PO DAILY@1700 10/10/18 10/10/18 History Bisacodyl [Dulcolax] 10 mg RECTAL DAILY PRN 10/10/18 10/10/18 History Carboxymethylcellulose Sodium 2 drop BOTH EYES DAILY PRN 10/10/18 10/10/18 History [Refresh Tears] Fluticasone Nasal [place] [Flonase 1 spray EA NOSTRIL DAILY 10/10/18 10/10/18 History Nasal [place]] Fluticasone/Vilanterol [Breo 1 puff INHALATION RT-DAILY@0800 10/10/18 10/10/18 History Ellipta 100-25 Mcg Inhaler] Furosemide [Lasix] 40 mg PO DAILY 10/10/18 10/10/18 History Gabapentin [Neurontin] 300 mg PO DAILY 10/10/18 10/10/18 History Loratadine [Claritin] 10 mg PO DAILY PRN 10/10/18 10/10/18 History Magnesium Hydroxide [Milk of 7,200 mg PO DAILY PRN 10/10/18 10/10/18 History Magnesia Concentrate] Na Phos,M-B/Na Phos,Di-Ba [Fleet 133 ml RECTAL DAILY PRN 10/10/18 10/10/18 History Adult] Nasal Gel 1 applic EA NOSTRIL DAILY PRN 10/10/18 10/10/18 History Potassium Chloride [Klor-Con 10] 10 meq PO DAILY@0800 10/10/18 10/10/18 History Warfarin Sodium [Coumadin] 2 mg PO SUTUWEFRSA 10/10/18 10/10/18 History Warfarin [Coumadin] 3 mg PO MOTH 10/10/18 10/10/18 History guaiFENesin [guaiFENesin Oral 200 mg PO Q4H PRN 10/10/18 10/10/18 History Solution] metFORMIN HCL [Glucophage] 500 mg PO BID@0800,1700 10/10/18 10/10/18 History Allergies Allergy/AdvReac Type Severity Reaction Status Date / Time No Known Allergies Allergy Verified 10/10/18 22:55 Physical Exam Vitals: Vital Signs Temp Pulse Pulse Resp BP BP Pulse Ox 10/11/18 12:00 74 22 80/54 98 10/11/18 08:00 93 22 93/58 100 10/11/18 04:00 97.6 F 88 22 99/60 92 L 10/11/18 03:03 98.4 F 96 23 105/72 96 10/11/18 02:00 90 19 107/46 96 10/11/18 01:30 94 18 93/63 96 10/11/18 00:00 92 18 101/85 97 10/10/18 23:30 90 19 128/77 96 10/10/18 22:37 97.6 F 79 23 104/73 99 Intake and Output 10/11/18 10/11/18 10/11/18 06:59 14:59 22:59 Intake Total 290 500 Output Total 250 350 Balance 40 150 Intake: IV 30 20 0.9 20 Invasive Line 1 10 20 Intake, IV Titration 200 Amount Calcium Gluconate 1 gm In 100 Sodium Chloride 0.9% 100 ml @ 100 mls/hr IVPB ONCE ONE Rx#:[id number] Piperacillin-Tazobactam 3 100 .375 gm In Sodium Chloride 0.9% 100 ml @ 25 mls/hr IVPB Q8HR [facility] Rx# :[id number] Oral 60 480 Output: Urine 250 350 Other: Voiding Method Urinal Diaper # Voids 1 1 Weight 106 kg 106 kg - Constitutional General appearance: average body habitus, cooperative, disheveled, mild distress - EENT Eyes: anicteric sclerae, EOMI, PERRLA, poor dentition, normal appearance Ears: bilateral: normal - Neck Neck: normal ROM Carotids: bilateral: upstroke normal, bruit absent Thyroid: bilateral: normal size - Respiratory Respiratory: bilateral: diminished, rales, wheezing, prolonged expiration, negative: CTA, dullness, rhonchi, prolonged inspiration - Cardiovascular Rhythm: regular Heart sounds: normal: S1, S2 - Gastrointestinal General gastrointestinal: soft - Integumentary Integumentary: normal - Neurologic Neurologic: CNII-XII intact - Musculoskeletal Musculoskeletal: gait normal, generalized weakness, strength equal bilaterally - Psychiatric Psychiatric: A&O x's 3, appropriate affect, intact judgment & insight Results - Laboratory Findings CBC and BMP: 10/11/18 07:08 10/11/18 07:08 PT/INR, D-dimer PT 29.0 sec (9.0-12.0) H 10/11/18 07:08 INR 3.0 (<1.2) H 10/11/18 07:08 D-Dimer 0.96 mg/L FEU (<0.60) H 10/10/18 23:04 Abnormal lab findings: Abnormal Labs 10/10/18 10/10/18 10/10/18 23:04 23:04 23:04 WBC 10.7 H RBC Hgb 12.5 L Hct MCHC RDW 22.0 H Plt Count 108 L Neutrophils # 9.3 H Lymphocytes # 0.5 L PT 27.3 H INR 2.8 H APTT 35.2 H D-Dimer 0.96 H Sodium 135 L Potassium 6.3 H* Carbon Dioxide 20 L BUN 77 H Creatinine 1.78 H Glucose 110 H Hemoglobin A1c Total Bilirubin 1.7 H Alkaline Phosphatase 202 H 10/11/18 10/11/18 10/11/18 07:08 07:08 07:08 WBC RBC 4.00 L Hgb 11.6 L Hct 37.6 L MCHC 30.9 L RDW 22.9 H Plt Count 92 L Neutrophils # 8.3 H Lymphocytes # 0.6 L PT INR APTT D-Dimer Sodium 136 L Potassium 5.2 H Carbon Dioxide 18 L BUN 71 H Creatinine 1.63 H Glucose Hemoglobin A1c 6.3 H Total Bilirubin Alkaline Phosphatase 10/11/18 07:08 WBC RBC Hgb Hct MCHC RDW Plt Count Neutrophils # Lymphocytes # PT 29.0 H INR 3.0 H APTT D-Dimer Sodium Potassium Carbon Dioxide BUN Creatinine Glucose Hemoglobin A1c Total Bilirubin Alkaline Phosphatase - Diagnostic Findings Chest x-ray: report reviewed, image reviewed (Finding as noted above) Assessment and Plan Assessment: Left lower lobe pneumonia Acute COPD exacerbation Acute exacerbation of congestive heart failure likely acute on chronic systolic heart failure is Ejection fraction only 20% Right subsegmental lower lobe atelectasis Hyperkalemia Chronic renal failure stage III Plan: Gentle diuresis Optimize cardiac output Bronchodilator IV steroids Continue antibiotics with Levaquin and Zosyn left lower lobe pneumonia Deep breathing exercises incentive spirometry Monitor observe closely renal functions and potassium level Further recommendations pending plan of care as per clinical response of patient Time with Patient: Greater than 30
[2018-10-11 16:39] LABS: Glucose,Whole Blood 95 mg/dL (75-99)
[2018-10-11] MEDS: CHOLECALCIFEROL 1,000 UNIT TAB PO SCH (17:05)
[2018-10-11] MEDS: WARFARIN 2 MG TAB PO SCH (17:05)
[2018-10-11] MEDS: ASPIRIN 81 MG PO SCH (17:06)
[2018-10-11] MEDS: IPRATROPIUM-ALBUTEROL 3 ML NEB INHALATION SCH (19:54)
[2018-10-11 20:36] LABS: Glucose,Whole Blood 114 mg/dL (75-99)
[2018-10-11] MEDS: ATORVASTATIN 10 MG TAB PO SCH (20:44)
[2018-10-11] MEDS: methylPREDNISolone SOD SUCCI 40 MG/ML 1 ML VIAL IV SCH (20:44)
[2018-10-11] MEDS: ACETAMINOPHEN TAB 500 MG TAB PO PRN (21:19)
[2018-10-11] MEDS: FUROSEMIDE 10 MG/ML 4 ML VIAL IV SCH (23:15)
[2018-10-12 06:04] LABS: Glucose,Whole Blood 144 mg/dL (75-99)
[2018-10-12] MEDS: metFORMIN 500 MG TAB PO SCH ×2 (08:09→17:31)
[2018-10-12] MEDS: PIPERACILLIN-TAZOBACTAM 3.375 GM in SODIUM CHLORIDE 0.9% 100 ML IVPB SCH ×3 (08:10→23:31)
[2018-10-12] MEDS: METOPROLOL TARTRATE 50 MG TAB PO SCH ×2 (08:10→17:31)
[2018-10-12] MEDS: IPRATROPIUM-ALBUTEROL 3 ML NEB INHALATION SCH ×4 (08:10→19:04)
[2018-10-12] MEDS: SYMBICORT 80-4.5 MCG INHALER INHALATION SCH ×2 (08:10→19:05)
[2018-10-12] MEDS: DOCUSATE 100 MG CAP PO SCH (08:11)
[2018-10-12] MEDS: GABAPENTIN 300 MG CAP PO SCH (08:11)
[2018-10-12] MEDS: LISINOPRIL 5 MG TAB PO SCH (08:11)
[2018-10-12] MEDS: CYANOCOBALAMIN 500 MCG TAB PO SCH (08:11)
[2018-10-12] MEDS: FUROSEMIDE 10 MG/ML 4 ML VIAL IV SCH ×2 (08:12→20:43)
[2018-10-12] MEDS: methylPREDNISolone SOD SUCCI 40 MG/ML 1 ML VIAL IV SCH ×2 (08:12→20:43)
[2018-10-12 11:40] LABS: Glucose,Whole Blood 208 mg/dL (75-99)
[2018-10-12] MEDS: INSULIN ASPART (NovoLOG) 100 UNIT/ML VIAL SQ SCH ×3 (12:08→21:14)
--- NOTE | 2018-10-12 13:44 | P.PN ---
Subjective Progress Note Date: 10/12/18 This is a 77-year-old gentleman with history of ischemic heart disease and prior bypass surgery, history of prior pacemaker implantation, acute on chronic renal failure, ischemic cardio myopathy, prior TIA, diabetes, hypertension, hyperlipidemia, presents to the hospital on this occasion with sy mptoms of progressively worsening shortness of breath. Patient was initiated on diuretics in the [facility], his symptoms did not seem to improve and for this reason he was advised to come to the hospital for further evaluation and treatment. Chest x-ray showed cardiomegaly and mild pulmonary vascular congestion, left base consolidative [place] suggests possible infiltrate. EKG on presentation here shows a ventricular paced rhythm. Blood pressure 108/46 with a heart rate of 90, 96% on 5 L of oxygen. White blood cell count 10.7, hemoglobin 12.5, platelet count 108. D-dimer 0.9, INR 3.0, sodium 135, potassium 6.3, BUN 77 and creatinine 1.7, total bilirubin 1.7, alk phos 202, troponin 0.016, BNP level 18,100. Patient had not been initiated on IV Lasix on presentation here, he is treated currently with antibiotics at the time of my examination this morning, patient complaining of feeling significantly short of breath. 10/12/2018 Patient was seen and examined this morning, still complains of some shortness of breath however he does feel better than he did the day prior. He is diuresing well on IV Lasix, his weight is down 1.5 kg from yesterday. We will continue current dose of IV a 6 along with his other medications, continue to monitor intake, output and daily weights. Objective - Vital Signs Vital signs: Vital Signs Temp 97.8 F 10/12/18 12:21 Pulse 87 10/12/18 12:21 Resp 20 10/12/18 12:21 BP 110/69 10/12/18 12:21 Pulse Ox 95 10/12/18 12:21 Intake & Output 10/11/18 10/12/18 10/12/18 18:59 06:59 18:59 Intake Total 750 716 Output Total 675 1625 600 Balance 75 -1625 116 Weight 106 kg 104.5 kg Intake: IV 30 Invasive Line 1 30 Oral 720 716 Output: Urine 675 1625 600 Other: Voiding Method Urinal Urinal Diaper Diaper # Voids 1 1 1 - Exam PHYSICAL EXAMINATION: GENERAL: 77-year-old gentleman, complaining of feeling short of breath at the time of my examination HEENT: Head is atraumatic, normocephalic. Pupils equal, round. Sclera anicteric. Conjunctiva are clear. Mucous membranes of the mouth are moist. Neck is supple. There is elevated jugular venous pressure. No carotid bruit is heard. HEART EXAMINATION: Heart S1, S2 normal. No murmur or gallop heard. CHEST EXAMINATION: Lungs reveal improvement in air entry bilaterally with fine crackles heard to the bases ABDOMEN: Soft, nontender. Bowel sounds are heard. No organomegaly noted. EXTREMITIES:[ 2+ peripheral pulses with 1+ evidence of peripheral edema NEUROLOGIC patient is awake, alert and oriented 3 . - Labs CBC & Chem 7: 10/11/18 07:08 10/11/18 07:08 Labs: Abnormal Lab Results - Last 24 Hours (Table) 10/11/18 10/12/18 10/12/18 Range/Units 20:35 06:02 11:39 POC Glucose (mg/dL) 114 H 144 H 208 H (75-99) mg/dL Assessment and Plan Plan: Assessment and plan #1 symptoms of progressively worsening shortness of breath with associated bilateral edema, likely exacerbation of congestive heart failure, diastolic in nature, with associated possible pneumonia #2 known history of coronary artery disease with prior bypass surgery #3 hypertension #4 diabetes #5 hyperlipidemia #6 history of permanent pacemaker implantation in 2014 for complete heart block #7 acute on chronic renal failure #8 prior TIA Plan Cardiology's perspective, we'll continue current dose of IV Lasix, continue to monitor the intake and output along with daily weights and daily lytes BUN and creatinine. Echocardiogram with Doppler study was performed which revealed an e jection fraction of 20-25%. If potassium remains stable and tomorrow's lab we will initiate Aldactone. DNP note has been reviewed, I agree with a documented findings and plan of care. Patient was seen and examined.
[2018-10-12] MEDS ORDERED: guaiFENesin-DM 100-10MG/5ML 10 ML CUP PO PRN (14:20)
[2018-10-12 14:22] LABS: Calcium 9.9 mg/dL (8.4-10.2)
--- NOTE | 2018-10-12 15:12 | P.PN ---
Subjective Progress Note Date: 10/12/18 Principal diagnosis: Left lower lobe pneumonia, acute COPD exacerbation, congestive heart failure acute on chronic systolic heart failure, right lower lobe atelectasis, hyperkalemia, chronic renal failure 10/12/2018, patient seen eval reexamined during the rounds shortness of breath slightly better cough congestion is better patient swelling of the lower extremity has improved, I have discussed with nursing staff if CPAP machine that he uses at [facility] can be brought over here then we can resume with each night and when necessary during the day that we will expedite the recovery process Since M7-year-old male who was seen evaluated examined on third floor this patient is well-known to me he is a resident of [facility] he has severe sleep apnea he uses BiPAP machine each night and when necessary during the day, he has a chronic hypoxia and on oxygen-dependent ready for 7 significant history of COPD, ischemic heart disease status post CABG for last few days patient has been more short of breath brought into the emergency department for further evaluation he was found to have increased swelling of the lower extremity his BNP level was 18,000 him a chest x-ray performed in the event his department revealed that patient has CHF-like changes with pulmonary vascular congestion and left basilar pneumonia with right subsegmental atelectasis, patient has been placed on broad-spectrum antibiotics, will require breathing treatments and short course of IV steroids as well Objective - Vital Signs Vital signs: Vital Signs Temp 97.8 F 10/12/18 12:21 Pulse 87 10/12/18 12:21 Resp 20 10/12/18 12:21 BP 110/69 10/12/18 12:21 Pulse Ox 95 10/12/18 12:21 Intake & Output 10/11/18 10/12/18 10/12/18 18:59 06:59 18:59 Intake Total 750 716 Output Total 675 1625 600 Balance 75 -1625 116 Weight 106 kg 104.5 kg Intake: IV 30 Invasive Line 1 30 Oral 720 716 Output: Urine 675 1625 600 Other: Voiding Method Urinal Urinal Diaper Diaper # Voids 1 1 1 - Exam Constitutional General appearance: average body habitus, cooperative, disheveled, mild distress - EENT Eyes: anicteric sclerae, EOMI, PERRLA, poor dentition, normal appearance Ears: bilateral: normal - Neck Neck: normal ROM Carotids: bilateral: upstroke normal, bruit absent Thyroid: bilateral: normal size - Respiratory Respiratory: bilateral: diminished, rales, wheezing, prolonged expiration, negative: CTA, dullness, rhonchi, prolonged inspiration - Cardiovascular Rhythm: regular Heart sounds: normal: S1, S2 - Gastrointestinal General gastrointestinal: soft - Integumentary Integumentary: normal - Neurologic Neurologic: CNII-XII intact - Musculoskeletal Musculoskeletal: gait normal, generalized weakness, strength equal bilaterally - Psychiatric Psychiatric: A&O x's 3, appropriate affect, intact judgment & insight - Labs CBC & Chem 7: 10/11/18 07:08 10/12/18 13:54 Labs: Abnormal Lab Results - Last 24 Hours (Table) 10/11/18 10/12/18 10/12/18 Range/Units 20:35 06:02 11:39 Carbon Dioxide (22-30) mmol/L BUN (9-20) mg/dL Creatinine (0.66-1.25) mg/dL Glucose (74-99) mg/dL POC Glucose (mg/dL) 114 H 144 H 208 H (75-99) mg/dL 10/12/18 Range/Units 13:54 Carbon Dioxide 17 L (22-30) mmol/L BUN 69 H (9-20) mg/dL Creatinine 1.63 H (0.66-1.25) mg/dL Glucose 143 H (74-99) mg/dL POC Glucose (mg/dL) (75-99) mg/dL Assessment and Plan Assessment: Left lower lobe pneumonia Acute COPD exacerbation Acute exacerbation of congestive heart failure likely acute on chronic systolic heart failure is Ejection fraction only 20% Right subsegmental lower lobe atelectasis Hyperkalemia Chronic renal failure stage III Plan: Gentle diuresis Optimize cardiac output Bronchodilator IV steroids Continue antibiotics with Levaquin and Zosyn left lower lobe pneumonia Deep breathing exercises incentive spirometry Monitor observe closely renal functions and potassium level Further recommendations pending plan of care as per clinical response of patient Time with Patient: Greater than 30
[2018-10-12 17:16] LABS: Glucose,Whole Blood 152 mg/dL (75-99)
[2018-10-12] MEDS: ASPIRIN 81 MG PO SCH (17:30)
[2018-10-12] MEDS: CHOLECALCIFEROL 1,000 UNIT TAB PO SCH (17:31)
[2018-10-12] MEDS ORDERED: WARFARIN 3 MG TAB PO SCH (18:00)
[2018-10-12] MEDS: ATORVASTATIN 10 MG TAB PO SCH (20:43)
[2018-10-12] MEDS: ACETAMINOPHEN TAB 500 MG TAB PO PRN (20:43)
[2018-10-12 21:05] LABS: Glucose,Whole Blood 174 mg/dL (75-99)
[2018-10-13] MEDS ORDERED: LEVOFLOXACIN 750 MG TAB PO SCH (01:00)
[2018-10-13 06:17] LABS: Glucose,Whole Blood 128 mg/dL (75-99)
[2018-10-13] MEDS: INSULIN ASPART (NovoLOG) 100 UNIT/ML VIAL SQ SCH ×4 (06:48→23:10)
[2018-10-13 08:22] LABS: Anisocytosis Moderate; HCT 38.5 % (39.0-53.0); HGB 11.8 gm/dL (13.0-17.5); Hypochromasia Moderate; MCHC 30.5 g/dL (31.0-37.0); Macrocytosis Slight; Mean Platelet Volume 8.8; RBC 4.06 m/uL (4.30-5.90); RDW 21.9 % (11.5-15.5); WBC 7.4 k/uL (3.8-10.6)
[2018-10-13] MEDS: PIPERACILLIN-TAZOBACTAM 3.375 GM in SODIUM CHLORIDE 0.9% 100 ML IVPB SCH ×3 (08:25→23:10)
[2018-10-13] MEDS: methylPREDNISolone SOD SUCCI 40 MG/ML 1 ML VIAL IV SCH ×2 (08:25→20:27)
[2018-10-13] MEDS: GABAPENTIN 300 MG CAP PO SCH (08:26)
[2018-10-13] MEDS: metFORMIN 500 MG TAB PO SCH ×2 (08:26→16:47)
[2018-10-13] MEDS: LISINOPRIL 5 MG TAB PO SCH (08:26)
[2018-10-13] MEDS: METOPROLOL TARTRATE 50 MG TAB PO SCH ×2 (08:26→16:47)
[2018-10-13] MEDS: FUROSEMIDE 10 MG/ML 4 ML VIAL IV SCH ×2 (08:26→20:26)
[2018-10-13] MEDS: CYANOCOBALAMIN 500 MCG TAB PO SCH (08:26)
[2018-10-13] MEDS: DOCUSATE 100 MG CAP PO SCH (08:26)
[2018-10-13] MEDS: SYMBICORT 80-4.5 MCG INHALER INHALATION SCH ×2 (08:27→20:59)
[2018-10-13] MEDS: IPRATROPIUM-ALBUTEROL 3 ML NEB INHALATION SCH ×4 (08:27→19:24)
[2018-10-13 08:37] LABS: Calcium 10.1 mg/dL (8.4-10.2); Potassium 4.8 mmol/L (3.5-5.1)
[2018-10-13 10:54] LABS: Platelet Count 96 k/uL (150-450)
[2018-10-13 12:20] LABS: Glucose,Whole Blood 117 mg/dL (75-99)
--- NOTE | 2018-10-13 14:58 | P.PN ---
Subjective Progress Note Date: 10/13/18 This is a 77-year-old gentleman with history of ischemic heart disease and prior bypass surgery, history of prior pacemaker implantation, acute on chronic renal failure, ischemic cardio myopathy, prior TIA, diabetes, hypertension, hyperlipidemia, presents to the hospital on this occasion with sy mptoms of progressively worsening shortness of breath. Patient was initiated on diuretics in the assisted, his symptoms did not seem to improve and for this reason he was advised to come to the hospital for further evaluation and treatment. Chest x-ray showed cardiomegaly and mild pulmonary vascular congestion, left base consolidative [place] suggests possible infiltrate. EKG on presentation here shows a ventricular paced rhythm. Blood pressure 108/46 with a heart rate of 90, 96% on 5 L of oxygen. White blood cell count 10.7, hemoglobin 12.5, platelet count 108. D-dimer 0.9, INR 3.0, sodium 135, potassium 6.3, BUN 77 and creatinine 1.7, total bilirubin 1.7, alk phos 202, troponin 0.016, BNP level 18,100. Patient had not been initiated on IV Lasix on presentation here, he is treated currently with antibiotics at the time of my examination this morning, patient complaining of feeling significantly short of breath. 10/12/2018 Patient was seen and examined this morning, still complains of some shortness of breath however he does feel better than he did the day prior. He is diuresing well on IV Lasix, his weight is down 1.5 kg from yesterday. We will continue current dose of IV a 6 along with his other medications, continue to monitor intake, output and daily weights. 10/13/2018 Patient was seen and examined this morning, he continued to diurese well although his weight is not indicated of that. White blood cell count 7.4, hemoglobin 11.8, platelet count 96. Sodium 137, potassium 4.8, BUN 74 and creatinine 1.7 Objective - Vital Signs Vital signs: Vital Signs Temp 98.1 F 10/13/18 08:35 Pulse 90 10/13/18 11:51 Resp 18 10/13/18 08:35 BP 97/67 10/13/18 08:35 Pulse Ox 93 L 10/13/18 08:35 Intake & Output 07/18/19 07/19/19 07/19/19 18:59 06:59 18:59 Intake Total 716 480 Output Total 600 725 450 Balance 116 -725 30 Weight 105.5 kg Intake: Oral 716 480 Output: Urine 600 725 450 Other: Voiding Method Urinal Urinal Urinal Diaper Diaper Diaper # Voids 1 1 - Exam PHYSICAL EXAMINATION: GENERAL: 77-year-old gentleman, complaining of feeling short of breath at the time of my examination HEENT: Head is atraumatic, normocephalic. Pupils equal, round. Sclera anicteric. Conjunctiva are clear. Mucous membranes of the mouth are moist. Neck is supple. There is elevated jugular venous pressure. No carotid bruit is heard. HEART EXAMINATION: Heart S1, S2 normal. No murmur or gallop heard. CHEST EXAMINATION: Lungs reveal improvement in air entry bilaterally with fine crackles heard to the bases ABDOMEN: Soft, nontender. Bowel sounds are heard. No organomegaly noted. EXTREMITIES:[ 2+ peripheral pulses with 1+ evidence of peripheral edema NEUROLOGIC patient is awake, alert and oriented 3 . - Labs CBC & Chem 7: 10/13/18 07:58 10/13/18 07:58 Labs: Abnormal Lab Results - Last 24 Hours (Table) 10/12/18 10/12/18 10/13/18 Range/Units 16:37 21:04 06:16 RBC (4.30-5.90) m/uL Hgb (13.0-17.5) gm/dL Hct (39.0-53.0) % MCHC (31.0-37.0) g/dL RDW (11.5-15.5) % Plt Count (150-450) k/uL Carbon Dioxide (22-30) mmol/L BUN (9-20) mg/dL Creatinine (0.66-1.25) mg/dL Glucose (74-99) mg/dL POC Glucose (mg/dL) 152 H 174 H 128 H (75-99) mg/dL 10/13/18 10/13/18 10/13/18 Range/Units 07:58 07:58 11:53 RBC 4.06 L (4.30-5.90) m/uL Hgb 11.8 L (13.0-17.5) gm/dL Hct 38.5 L (39.0-53.0) % MCHC 30.5 L (31.0-37.0) g/dL RDW 21.9 H (11.5-15.5) % Plt Count 96 L (150-450) k/uL Carbon Dioxide 19 L (22-30) mmol/L BUN 74 H (9-20) mg/dL Creatinine 1.70 H (0.66-1.25) mg/dL Glucose 135 H (74-99) mg/dL POC Glucose (mg/dL) 117 H (75-99) mg/dL Assessment and Plan Plan: Assessment and plan #1 symptoms of progressively worsening shortness of breath with associated bilateral edema, likely exacerbation of congestive heart failure, diastolic in nature, with associated possible pneumonia #2 known history of coronary artery disease with prior bypass surgery #3 hypertension #4 diabetes #5 hyperlipidemia #6 history of permanent pacemaker implantation in 2014 for complete heart block #7 acute on chronic renal failure #8 prior TIA Plan Cardiology's perspective, we'll continue current dose of IV Lasix, continue to monitor the intake and output along with daily weights and daily lytes BUN and creatinine. Echocardiogram with Doppler study was performed which revealed an ejection fraction of 20-25%. DNP note has been reviewed, I agree with a documented findings and plan of care. Patient was seen and examined.
--- NOTE | 2018-10-13 16:13 | P.PN ---
Subjective This very pleasant 77-year-old gentleman who comes into the ER for above- mentioned complaint. [place] He is hard of hearing but is alert oriented 3. He said that for the past few days, he's been having more shortness of breath and usual. [place] started him on water pills but he was still short of breath and is coughing still so he was brought into the ER for further evaluation and management. Patient otherwise does not complain of any chest pain, no racing heart, no abdominal pain, nausea and vomiting, or diarrhea constipation, no tingling numbness on his extremities, no itch no rash ER course-vitals the time of admission showed temperature 98.4 pulse 96 blood pressure 105/72 satting 96% on 4 L. Labwork on admission showed WAC 10.7 hemoglobin 12.5 platelets 108 d-dimer 0.96 sodium 135 potassium 6.3 B1 77 creatinine 1.78 AST 49 ALT 29 alk phos 202 albumin 4.1. Chest x-ray shows findings suggestive of congestion and also there is left lower lobe obesity indicating possible pneumonia. patient was started on Levaquin and Zosyn, he was also started on Lasix 40 mg daily and admitted to the hospitalist service a further evaluation and management. 10/12/2018 Patient says that her shortness of breath is better. His swelling in the feet is improving No chest pain or racing heart 10/13/2018 Patient shortness of breath is better. Patient is talking much better with less short of breath on talking when compared to yesterday His leg swelling is improving No chest pain or racing heart Objective - Vital Signs Vital signs: Vital Signs Temp 97.6 F 10/13/18 12:00 Pulse 88 10/13/18 15:26 Resp 18 10/13/18 12:00 BP 99/65 10/13/18 12:00 Pulse Ox 98 10/13/18 15:14 Intake & Output 10/12/18 10/13/18 10/13/18 18:59 06:59 18:59 Intake Total 716 720 Output Total 600 725 450 Balance 116 -725 270 Weight 105.5 kg Intake: Oral 716 720 Output: Urine 600 725 450 Other: Voiding Method Urinal Urinal Urinal Diaper Diaper Diaper # Voids 1 1 - Exam On exam, alert and oriented x3. HEENT: Conjunctivae normal. eyes normal. NECK: No JVD. No thyroid enlargement. No LNs CARDIOVASCULAR: S1, S2 muffled. No murmur RESPIRATION: Breath sounds diminished in the bases. Also having some crackles ABDOMEN: Soft, nontender . No guarding. no masses palpable. No ascites, No hepatosplenomegaly.Bowel sounds heard. LEGS: leg edema NERVOUS SYSTEM: Cranial N 2-12 grossly normal. Moves all 4 limbs. No focal deficits. No sensory deficit. No signs of cerebellar dysfucntion. Skin: no ulcer no rash - Labs CBC & Chem 7: 10/13/18 07:58 10/13/18 07:58 Labs: Abnormal Lab Results - Last 24 Hours (Table) 10/12/18 10/12/18 10/13/18 Range/Units 16:37 21:04 06:16 RBC (4.30-5.90) m/uL Hgb (13.0-17.5) gm/dL Hct (39.0-53.0) % MCHC (31.0-37.0) g/dL RDW (11.5-15.5) % Plt Count (150-450) k/uL Carbon Dioxide (22-30) mmol/L BUN (9-20) mg/dL Creatinine (0.66-1.25) mg/dL Glucose (74-99) mg/dL POC Glucose (mg/dL) 152 H 174 H 128 H (75-99) mg/dL 10/13/18 10/13/18 10/13/18 Range/Units 07:58 07:58 11:53 RBC 4.06 L (4.30-5.90) m/uL Hgb 11.8 L (13.0-17.5) gm/dL Hct 38.5 L (39.0-53.0) % MCHC 30.5 L (31.0-37.0) g/dL RDW 21.9 H (11.5-15.5) % Plt Count 96 L (150-450) k/uL Carbon Dioxide 19 L (22-30) mmol/L BUN 74 H (9-20) mg/dL Creatinine 1.70 H (0.66-1.25) mg/dL Glucose 135 H (74-99) mg/dL POC Glucose (mg/dL) 117 H (75-99) mg/dL Assessment and Plan Assessment: - Acute respiratory failure multifactorial due to acute CHF exacerbation and possible pneumonia - Acute CHF exacerbation with diastolic dysfunction - Possible pneumonia rule out healthcare associated pneumonia versus gram- negative pneumonia - MATIAS on CKD - Hypertension - Hyperlipidemia - Diabetes mellitus - History of permanent pacemaker. Status post complete heart block - History of TIA Plan - We'll admit the patient to selective floor with telemetry - Patient needs to be on IV Lasix as he has evidence of CHF exacerbation. He's having congestive changes , He has lower extremity edema and he has JVD elevation. Lasix already started by cardiology - We'll continue antibiotics for now and see how he responds. Antibiotics can b e changed depending upon the patient's condition - We'll continue aggressive medical care and continue rest of medications - Monitor kidney functions - We'll repeat labs in the morning - Expected length of stay more than 2 midnights - Patient is full code 10/12/2018 - Continue diuresis. Patient having good urine output and swelling is improving - We'll continue antibiotics for now - Continue rest of medications - we'll monitor the kidney functions 10/13/2018 - Patient diuresing well. Continue current dose of diuresis. Cardiology following the patient - Continue antibiotics now. - We'll continue breathing treatments - Continue rest of medications - Renal functions little up when compared to yesterday - We'll repeat the lab work in the morning
[2018-10-13] MEDS: ASPIRIN 81 MG PO SCH (16:47)
[2018-10-13] MEDS: WARFARIN 2 MG TAB PO SCH (16:47)
[2018-10-13] MEDS: CHOLECALCIFEROL 1,000 UNIT TAB PO SCH (16:47)
[2018-10-13 17:17] LABS: Glucose,Whole Blood 145 mg/dL (75-99)
--- NOTE | 2018-10-13 17:45 | P.PN ---
Subjective Progress Note Date: 10/13/18 Principal diagnosis: Left lower lobe pneumonia, acute COPD exacerbation, congestive heart failure acute on chronic systolic heart failure, right lower lobe atelectasis, hyperkalemia, chronic renal failure 10/13/2018, patient seen eval reexamined during the rounds, overall doing better less short of breath less congested, swelling in the lower extremity has improved patient remains on supplemental oxygen have reviewed medications reviewed 10/12/2018, patient seen eval reexamined during the rounds shortness of breath slightly better cough congestion is better patient swelling of the lower extremity has improved, I have discussed with nursing staff if CPAP machine that he uses at [facility] can be brought over here then we can resume with each night and when necessary during the day that we will expedite the recovery process Since M7-year-old male who was seen evaluated examined on third floor this patient is well-known to me he is a resident of [place] he has severe sleep apnea he uses BiPAP machine each night and when necessary during the day, he has a chronic hypoxia and on oxygen-dependent ready for 7 significant history of COPD, ischemic heart disease status post CABG for last few days patient has been more short of breath brought into the emergency department for further evaluation he was found to have increased swelling of the lower extremity his BNP level was 18,000 him a chest x-ray performed in the event his department revealed that patient has CHF-like changes with pulmonary vascular congestion and left basilar pneumonia with right subsegmental atelectasis, patient has been placed on broad-spectrum antibiotics, will require breathing treatments and short course of IV steroids as well Objective - Vital Signs Vital signs: Vital Signs Temp 97.7 F 10/13/18 16:00 Pulse 96 10/13/18 16:00 Resp 18 10/13/18 16:00 BP 102/67 10/13/18 16:00 Pulse Ox 91 L 10/13/18 16:00 Intake & Output 10/12/18 10/13/18 10/13/18 18:59 06:59 18:59 Intake Total 716 720 Output Total 600 725 450 Balance 116 -725 270 Weight 105.5 kg Intake: Oral 716 720 Output: Urine 600 725 450 Other: Voiding Method Urinal Urinal Urinal Diaper Diaper Diaper # Voids 1 1 - Exam Constitutional General appearance: average body habitus, cooperative, disheveled, mild distress - EENT Eyes: anicteric sclerae, EOMI, PERRLA, poor dentition, normal appearance Ears: bilateral: normal - Neck Neck: normal ROM Carotids: bilateral: upstroke normal, bruit absent Thyroid: bilateral: normal size - Respiratory Respiratory: bilateral: diminished, rales, wheezing, prolonged expiration, negative: CTA, dullness, rhonchi, prolonged inspiration - Cardiovascular Rhythm: regular Heart sounds: normal: S1, S2 - Gastrointestinal General gastrointestinal: soft - Integumentary Integumentary: normal - Neurologic Neurologic: CNII-XII intact - Musculoskeletal Musculoskeletal: gait normal, generalized weakness, strength equal bilaterally - Psychiatric Psychiatric: A&O x's 3, appropriate affect, intact judgment & insight - Labs CBC & Chem 7: 10/13/18 07:58 10/13/18 07:58 Labs: Abnormal Lab Results - Last 24 Hours (Table) 10/12/18 10/13/18 10/13/18 Range/Units 21:04 06:16 07:58 RBC 4.06 L (4.30-5.90) m/uL Hgb 11.8 L (13.0-17.5) gm/dL Hct 38.5 L (39.0-53.0) % MCHC 30.5 L (31.0-37.0) g/dL RDW 21.9 H (11.5-15.5) % Plt Count 96 L (150-450) k/uL Carbon Dioxide (22-30) mmol/L BUN (9-20) mg/dL Creatinine (0.66-1.25) mg/dL Glucose (74-99) mg/dL POC Glucose (mg/dL) 174 H 128 H (75-99) mg/dL 10/13/18 10/13/18 10/13/18 Range/Units 07:58 11:53 16:52 RBC (4.30-5.90) m/uL Hgb (13.0-17.5) gm/dL Hct (39.0-53.0) % MCHC (31.0-37.0) g/dL RDW (11.5-15.5) % Plt Count (150-450) k/uL Carbon Dioxide 19 L (22-30) mmol/L BUN 74 H (9-20) mg/dL Creatinine 1.70 H (0.66-1.25) mg/dL Glucose 135 H (74-99) mg/dL POC Glucose (mg/dL) 117 H 145 H (75-99) mg/dL Assessment and Plan Assessment: Left lower lobe pneumonia Acute COPD exacerbation Acute exacerbation of congestive heart failure likely acute on chronic systolic heart failure is Ejection fraction only 20% Right subsegmental lower lobe atelectasis Hyperkalemia Chronic renal failure stage III Plan: Gentle diuresis Optimize cardiac output Bronchodilator IV steroids Continue antibiotics with Levaquin and Zosyn left lower lobe pneumonia Deep breathing exercises incentive spirometry Monitor observe closely renal functions and potassium level Further recommendations pending plan of care as per clinical response of patient Time with Patient: Greater than 30
[2018-10-13] MEDS: ATORVASTATIN 10 MG TAB PO SCH (20:27)
[2018-10-13] MEDS: ACETAMINOPHEN TAB 500 MG TAB PO PRN (20:28)
[2018-10-13 21:32] LABS: Glucose,Whole Blood 170 mg/dL (75-99)
[2018-10-14 06:47] LABS: Glucose,Whole Blood 142 mg/dL (75-99)
[2018-10-14] MEDS: INSULIN ASPART (NovoLOG) 100 UNIT/ML VIAL SQ SCH ×4 (07:02→23:09)
[2018-10-14 07:13] LABS: Anisocytosis Moderate; HCT 36.2 % (39.0-53.0); HGB 11.6 gm/dL (13.0-17.5); Hypochromasia Slight; MCH 29.9 pg (25.0-35.0); MCHC 31.9 g/dL (31.0-37.0); MCV 93.6 fL (80.0-100.0); Macrocytosis Slight; Mean Platelet Volume 11.7; RBC 3.87 m/uL (4.30-5.90); RDW 22.1 % (11.5-15.5)
[2018-10-14] MEDS: SYMBICORT 80-4.5 MCG INHALER INHALATION SCH ×2 (07:33→19:08)
[2018-10-14] MEDS: IPRATROPIUM-ALBUTEROL 3 ML NEB INHALATION SCH ×4 (07:33→19:08)
[2018-10-14 08:23] LABS: Platelet Count 120 k/uL (150-450)
[2018-10-14 09:16] LABS: Calcium 10.2 mg/dL (8.4-10.2); Potassium 4.4 mmol/L (3.5-5.1)
[2018-10-14] MEDS: ACETAMINOPHEN TAB 500 MG TAB PO PRN ×2 (09:17→20:27)
[2018-10-14] MEDS: METOPROLOL TARTRATE 50 MG TAB PO SCH ×2 (09:17→13:10)
[2018-10-14] MEDS: GABAPENTIN 300 MG CAP PO SCH (09:18)
[2018-10-14] MEDS: CYANOCOBALAMIN 500 MCG TAB PO SCH (09:18)
[2018-10-14] MEDS: metFORMIN 500 MG TAB PO SCH ×2 (09:18→17:14)
[2018-10-14] MEDS: FUROSEMIDE 10 MG/ML 4 ML VIAL IV SCH (09:18)
[2018-10-14] MEDS: methylPREDNISolone SOD SUCCI 40 MG/ML 1 ML VIAL IV SCH ×2 (09:18→20:26)
[2018-10-14] MEDS: DOCUSATE 100 MG CAP PO SCH (09:18)
[2018-10-14] MEDS: PIPERACILLIN-TAZOBACTAM 3.375 GM in SODIUM CHLORIDE 0.9% 100 ML IVPB SCH ×3 (09:19→23:49)
[2018-10-14 09:21] LABS: Prothrombin Time 50.3 sec (9.0-12.0)
[2018-10-14 09:28] LABS: INR 5.2 (<1.2)
[2018-10-14] MEDS ORDERED: PHYTONADIONE ORAL 5 MG/5 ML ORAL.SYRG PO STA (09:54)
--- NOTE | 2018-10-14 10:50 | CT ---
EXAMINATION TYPE: CT brain wo con DATE OF EXAM: 10/14/2018 COMPARISON: NONE HISTORY: Headache, on coumadin CT DLP: 1225.4 mGycm Automated exposure control for dose reduction was used. FINDINGS: There are mild, generalized changes of sulcal prominence and ventriculomegaly compatible with mild at rophic change. There is diffuse periventricular white matter lucency, compatible small vessel ischemi c change. There is no acute focal lesion, mass effect or midline shift identified. I do not see evide nce of intracranial blood. Visualized portions of the paranasal sinuses and mastoids are clear. The bony calvarium is intact. IMPRESSION: 1. NO ACUTE INTRACRANIAL ABNORMALITY. NUMBER MILD ATROPHIC CHANGE. 3. CHRONIC WHITE MATTER ISCHEMIC CHANGE.
[2018-10-14 12:16] LABS: Glucose,Whole Blood 136 mg/dL (75-99)
[2018-10-14] MEDS: LISINOPRIL 5 MG TAB PO SCH (13:10)
--- NOTE | 2018-10-14 13:25 | P.PN ---
Subjective From the records This very pleasant 77-year-old gentleman who comes into the ER for above- mentioned complaint. Patient says that he lives in long term. He is hard of hearing but is alert oriented 3. He said that for the past few days, he's been having more shortness of breath and usual. His doctor in the long term started him on water pills but he was still short of breath and is coughing still so he was brought into the ER for further evaluation and management. Patient otherwise does not complain of any chest pain, no racing heart, no abdominal pain, nausea and vomiting, or diarrhea constipation, no tingling numbness on his extremities, no itch no rash ER course-vitals the time of admission showed temperature 98.4 pulse 96 blood pressure 105/72 satting 96% on 4 L. Labwork on admission showed WAC 10.7 hemoglobin 12.5 platelets 108 d-dimer 0.96 sodium 135 potassium 6.3 B1 77 creatinine 1.78 AST 49 ALT 29 alk phos 202 albumin 4.1. Chest x-ray shows findings suggestive of congestion and also there is left lower lobe obesity indicating possible pneumonia. patient was started on Levaquin and Zosyn, he was also started on Lasix 40 mg daily and admitted to the hospitalist service a further evaluation and management. 10/12/2018 Patient says that her shortness of breath is better. His swelling in the feet is improving No chest pain or racing heart 10/13/2018 Patient shortness of breath is better. Patient is talking much better with less short of breath on talking when compared to yesterday His leg swelling is improving No chest pain or racing heart Subjective: This is first time taking care of the patient 10/14/2018 This is a pleasant 77 years old male with past medical history of COPD, congestive heart failure presents with signs symptoms of left lower lobe pneumonia and acute COPD exacerbation as well as worsening congestive heart failure. Also patient found to have trending up creatinine. 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 He is also was on Coumadin for history of DVT in his left leg, patient unsure how long ago was that. On admission his INR was supratherapeutic 3.0, today is trending up to 5.2. He was started on Levaquin and Zosyn for his pneumonia. We're going to order a CAT scan of the head to rule out intracranial hemorrhage, since patient was complaining this morning of from frontal headache although it looks more related to his sinus problem. We'll check chest x-ray. Patient is being followed closely by pulmonary and cardiology team. Also consult nephrology team in view of worsening creatinine Review of systems CONSTITUTIONAL: No fever, no malaise, no fatigue. HEENT: No recent visual problems or hearing problems. Denied any sore throat. CARDIOVASCULAR: no palpitations, no syncope. PULMONARY:no hemoptysis. GASTROINTESTINAL: No diarrhea, no nausea, no vomiting, no abdominal pain. Normoactive bowel sounds. NEUROLOGICAL: No headaches, no weakness, no numbness. HEMATOLOGICAL: Denies any bleeding or petechiae. GENITOURINARY: Denies any burning micturition, frequency, or urgency. MUSCULOSKELETAL/RHEUMATOLOGICAL: Denies any joint pain, swelling, or any muscle pain. ENDOCRINE: Denies any polyuria or polydipsia. Active Medications Generic Name Dose Route Start Last Admin Trade Name Freq PRN Reason Stop Dose Admin Acetaminophen 1,000 mg 10/11/18 01:46 10/14/18 09:17 Tylenol Tab PO 1,000 mg HS PRN Administration Pain Albuterol/Ipratropium 3 ml 10/11/18 20:00 10/14/18 11:43 Duoneb 0.5 Mg-3 Mg/3 Ml Soln INHALATION 3 ml RT-QID GRACE Administration Aspirin 81 mg 10/11/18 17:00 10/13/18 16:47 Aspirin PO 81 mg DAILY@1700 GRACE Administration Atorvastatin Calcium 10 mg 10/11/18 21:00 10/13/18 20:27 Lipitor PO 10 mg HS GRACE Administration Bisacodyl 10 mg 10/11/18 01:46 Dulcolax RECTAL DAILY PRN Constipation Budesonide/Formoterol Fumarate 2 puff 10/11/18 08:00 10/14/18 07:33 Symbicort 80-4.5 Mcg Inhaler INHALATION 2 puff RT-BID GRACE Administration Cholecalciferol 1,000 unit 10/11/18 17:00 10/13/18 16:47 Vitamin D3 (25 Mcg = 1000 Iu) PO 1,000 unit DAILY@1700 GRACE Administration Cyanocobalamin 1,000 mcg 10/11/18 09:00 10/14/18 09:18 Vitamin B-12 PO 1,000 mcg DAILY GRACE Administration Docusate Sodium 100 mg 10/11/18 09:00 10/14/18 09:18 Colace PO 100 mg DAILY GRACE Administration Furosemide 40 mg 10/11/18 21:00 10/14/18 09:18 Lasix IV 40 mg Q12HR GRACE Administration Gabapentin 300 mg 10/11/18 09:00 10/14/18 09:18 Neurontin PO 300 mg DAILY GRACE Administration Guaifenesin/Dextromethorphan 10 ml 10/12/18 14:20 Robitussin Dm PO Q6H PRN Cough Piperacillin Sod/Tazobactam 100 mls @ 25 mls/hr 10/11/18 08:00 10/14/18 09:19 Sod 3.375 gm/ Sodium Chloride IVPB 25 mls/hr Q8HR GRACE Administration Insulin Aspart 0 unit 10/12/18 12:30 10/14/18 07:02 Novolog SQ 2 unit ACHS GRACE Administration Protocol Lisinopril 5 mg 10/11/18 09:00 10/14/18 13:10 Zestril PO Not Given DAILY [facility] Magnesium Hydroxide 2,400 mg 10/11/18 01:46 Milk Of Magnesia PO DAILY PRN Constipation Metformin HCl 500 mg 10/11/18 08:00 10/14/18 09:18 Glucophage PO 500 mg BID@0800,1700 [facility] Administration Methylprednisolone Sodium Succinate 40 mg 10/11/18 21:00 10/14/18 09:18 Solu-Medrol IV 40 mg Q12HR [facility] Administration Metoprolol Tartrate 100 mg 10/11/18 08:00 10/14/18 13:10 Lopressor PO Not Given BID@0800,1700 [facility] Sodium Chloride 10 ml 10/11/18 09:00 10/13/18 20:27 Saline Flush IV 10 ml BID GRACE Administration Objective - Vital Signs Vital signs: Vital Signs Temp 97.9 F 10/14/18 04:00 Pulse 106 H 10/14/18 11:53 Resp 20 10/14/18 09:38 BP 104/62 10/14/18 09:38 Pulse Ox 94 L 10/14/18 09:38 Intake & Output 10/13/18 10/14/18 10/14/18 18:59 06:59 18:59 Intake Total 720 260 354 Output Total 450 200 Balance 270 60 354 Weight 105.5 kg Intake: IV 160 0.9 160 Intake, IV Titration 100 Amount Piperacillin-Tazobactam 3 100 .375 gm In Sodium Chloride 0.9% 100 ml @ 25 mls/hr IVPB Q8HR [facility] Rx# :[id number] Oral 720 354 Output: Urine 450 200 Other: Voiding Method Urinal Urinal Diaper Diaper # Voids 4 - Labs CBC & Chem 7: 10/14/18 06:36 10/14/18 08:46 Labs: Abnormal Lab Results - Last 24 Hours (Table) 10/13/18 10/13/18 10/14/18 Range/Units 16:52 21:31 06:36 RBC 3.87 L (4.30-5.90) m/uL Hgb 11.6 L (13.0-17.5) gm/dL Hct 36.2 L (39.0-53.0) % RDW 22.1 H (11.5-15.5) % Plt Count 120 L (150-450) k/uL PT (9.0-12.0) sec INR (<1.2) Sodium (137-145) mmol/L Carbon Dioxide (22-30) mmol/L BUN (9-20) mg/dL Creatinine (0.66-1.25) mg/dL Glucose (74-99) mg/dL POC Glucose (mg/dL) 145 H 170 H (75-99) mg/dL 10/14/18 10/14/18 10/14/18 Range/Units 06:46 08:46 08:46 RBC (4.30-5.90) m/uL Hgb (13.0-17.5) gm/dL Hct (39.0-53.0) % RDW (11.5-15.5) % Plt Count (150-450) k/uL PT 50.3 H (9.0-12.0) sec INR 5.2 H* (<1.2) Sodium 136 L (137-145) mmol/L Carbon Dioxide 18 L (22-30) mmol/L BUN 88 H (9-20) mg/dL Creatinine 1.93 H (0.66-1.25) mg/dL Glucose 144 H (74-99) mg/dL POC Glucose (mg/dL) 142 H (75-99) mg/dL 10/14/18 Range/Units 11:55 RBC (4.30-5.90) m/uL Hgb (13.0-17.5) gm/dL Hct (39.0-53.0) % RDW (11.5-15.5) % Plt Count (150-450) k/uL PT (9.0-12.0) sec INR (<1.2) Sodium (137-145) mmol/L Carbon Dioxide (22-30) mmol/L BUN (9-20) mg/dL Creatinine (0.66-1.25) mg/dL Glucose (74-99) mg/dL POC Glucose (mg/dL) 136 H (75-99) mg/dL Assessment and Plan Assessment: Left lower lobe pneumonia Acute COPD exacerbation Acute on chronic systolic congestive heart failure with ejection fraction 20% Acute kidney injury Coagulopathy secondary to Coumadin History of DVT on Coumadin Acute hypoxic respiratory failure secondary to above Acute on chronic Sinusitis Frontal headache, mostly secondary to sinusitis Plan: This is a pleasant 77 years old male who presents with pneumonia, COPD and CHF. Also as correct and trending up. Patient is currently on Lasix and Solu-Medrol. Continue with antibiotics however we are going to hold Levaquin in view of his improving pneumonia and trending up INR. Small dose of vitamin K is a provided for the patient. CAT scan of the head showing no acute hemorrhage.Labs and medication were reviewed.. Continue same treatment. Continue with symptomatic treatment. Resume home medication. Monitor lytes and vitals. DVT and GI prophylaxis. Further recommendations of the clinical course of the patient DVT prophylaxis: On Coumadin GI Prophylaxis: Pepcid PT/OT: Pending CODE STATUS: Full code, discussed with the patient Prognosis is guarded
--- NOTE | 2018-10-14 14:11 | XR ---
EXAMINATION TYPE: XR chest 1V DATE OF EXAM: 10/14/2018 COMPARISON: 10/10/2018 HISTORY: Follow-up pneumonia TECHNIQUE: Single frontal view of the chest is obtained. FINDINGS: Heart is enlarged. There is pulmonary vascular congestion. There is a left axillary pacema ker. There are sternal wires. There is slight blunting of the costophrenic angles. IMPRESSION: Mild congestive heart failure is the same or improved compared to last exam.
--- NOTE | 2018-10-14 16:32 | P.PN ---
Subjective Progress Note Date: 10/14/18 this is a 77-year-old gentleman with history of ischemic heart disease with a previous bypass surgery, history of prior pacemaker implantation, acute on chronic renal failure. Ischemic cardiomyopathy who was admitted to the hospital with progressive shortness of breath. The chest x-ray showed cardiac megaly and mild pulmonary vascular congestion. There is also possible pneumonia. Patient seemed to be slightly better. Chest x-ray shows mild CHF findings. However, his creatinine is going up and his potassium is going up. Going to stop lisinopriland cut back the dose of metoprolol because of low blood pressure. I'm also going cut back the dose of the Lasix. Continue to monitor his BUN/creatinine. If necessary a renal consult may be obtained. Objective - Vital Signs Vital signs: Vital Signs Temp 97.5 F L 10/14/18 15:34 Pulse 100 10/14/18 15:50 Resp 20 10/14/18 15:34 BP 96/53 10/14/18 15:34 Pulse Ox 95 10/14/18 15:40 Intake & Output 10/13/18 10/14/18 10/14/18 18:59 06:59 18:59 Intake Total 720 260 676 Output Total 450 200 200 Balance 270 60 476 Weight 105.5 kg Intake: IV 160 0.9 160 Intake, IV Titration 100 100 Amount Piperacillin-Tazobactam 3 100 100 .375 gm In Sodium Chloride 0.9% 100 ml @ 25 mls/hr IVPB Q8HR [facility] Rx# :[id number] Oral 720 576 Output: Urine 450 200 200 Other: Voiding Method Urinal Urinal Urinal Diaper Diaper # Voids 4 - Exam GENERAL EXAM: Patient is alert and oriented and appears to be chronically short of breath HEENT: Normocephalic. Normal reaction of pupils, equal size, normal range of extraocular motion. No erythema or exudates in the throat. NECK: No masses, no nuchal rigidity. CHEST: No chest wall deformity. LUNGS: [equal air entry without any significant wheezing or rhonchi HEART: [S1 and S2 normal with no audible mumurs or gallops. Regular rhythm, femorals equal on both sides..] ABDOMEN: No hepatosplenomegaly, normal bowel sounds, no guarding or rigidity. SKIN: No rashes CENTRAL NERVOUS SYSTEM: No focal deficits. EXTREMITIES: mild edema - Labs CBC & Chem 7: 10/14/18 06:36 10/14/18 08:46 Labs: Abnormal Lab Results - Last 24 Hours (Table) 10/13/18 10/13/18 10/14/18 Range/Units 16:52 21:31 06:36 RBC 3.87 L (4.30-5.90) m/uL Hgb 11.6 L (13.0-17.5) gm/dL Hct 36.2 L (39.0-53.0) % RDW 22.1 H (11.5-15.5) % Plt Count 120 L (150-450) k/uL PT (9.0-12.0) sec INR (<1.2) Sodium (137-145) mmol/L Carbon Dioxide (22-30) mmol/L BUN (9-20) mg/dL Creatinine (0.66-1.25) mg/dL Glucose (74-99) mg/dL POC Glucose (mg/dL) 145 H 170 H (75-99) mg/dL 10/14/18 10/14/18 10/14/18 Range/Units 06:46 08:46 08:46 RBC (4.30-5.90) m/uL Hgb (13.0-17.5) gm/dL Hct (39.0-53.0) % RDW (11.5-15.5) % Plt Count (150-450) k/uL PT 50.3 H (9.0-12.0) sec INR 5.2 H* (<1.2) Sodium 136 L (137-145) mmol/L Carbon Dioxide 18 L (22-30) mmol/L BUN 88 H (9-20) mg/dL Creatinine 1.93 H (0.66-1.25) mg/dL Glucose 144 H (74-99) mg/dL POC Glucose (mg/dL) 142 H (75-99) mg/dL 10/14/18 Range/Units 11:55 RBC (4.30-5.90) m/uL Hgb (13.0-17.5) gm/dL Hct (39.0-53.0) % RDW (11.5-15.5) % Plt Count (150-450) k/uL PT (9.0-12.0) sec INR (<1.2) Sodium (137-145) mmol/L Carbon Dioxide (22-30) mmol/L BUN (9-20) mg/dL Creatinine (0.66-1.25) mg/dL Glucose (74-99) mg/dL POC Glucose (mg/dL) 136 H (75-99) mg/dL Assessment and Plan (1) Acute kidney injury Current Visit: Yes Status: Acute Code(s): N17.9 - ACUTE KIDNEY FAILURE, UNSPECIFIED SNOMED Code(s): 58435339 (2) CHF (congestive heart failure) Current Visit: Yes Status: Acute Code(s): I50.9 - HEART FAILURE, UNSPECIFIED SNOMED Code(s): 68043656 (3) Atrial flutter Current Visit: No Status: Acute Code(s): I48.92 - UNSPECIFIED ATRIAL FLUTTER SNOMED Code(s): 9398166 (4) Atrial tachycardia Current Visit: No Status: Acute Code(s): I47.1 - SUPRAVENTRICULAR TACHYCARDIA SNOMED Code(s): 069145168 (5) Renal failure Current Visit: No Status: Acute Code(s): N19 - UNSPECIFIED KIDNEY FAILURE SNOMED Code(s): 70709956 Plan: continue current medical therapy except to hold lisinopril, cut back the dose of the metoprolol and also Lasix. Continue to follow his electrolytes, BUN/creatinine. May consider renal consult
[2018-10-14 17:01] LABS: Glucose,Whole Blood 216 mg/dL (75-99)
[2018-10-14] MEDS: ASPIRIN 81 MG PO SCH (17:14)
[2018-10-14] MEDS: METOPROLOL TARTRATE 25 MG TAB PO SCH (17:14)
[2018-10-14] MEDS: CHOLECALCIFEROL 1,000 UNIT TAB PO SCH (17:14)
[2018-10-14] MEDS: ATORVASTATIN 10 MG TAB PO SCH (20:26)
[2018-10-14] MEDS: FUROSEMIDE 10 MG/ML 2 ML VIAL IV SCH (20:26)
[2018-10-14 20:38] LABS: Glucose,Whole Blood 155 mg/dL (75-99)
--- NOTE | 2018-10-14 20:39 | P.PN ---
Subjective Progress Note Date: 10/14/18 Principal diagnosis: Left lower lobe pneumonia, acute COPD exacerbation, congestive heart failure acute on chronic systolic heart failure, right lower lobe atelectasis, hyperkalemia, chronic renal failure 10/14/2018, patient seen eval reexamined during the rounds his complain of chest pain or shortness of breath improved compared to yesterday he has been getting CPAP from residential did not sleep well last night labs reviewed medications reviewed care plan discussed with staff at length, his chest x-ray from today morning has been reviewed significantly improved compared to baseline admit x- ray 10/13/2018, patient seen eval reexamined during the rounds, overall doing better less short of breath less congested, swelling in the lower extremity has improved patient remains on supplemental oxygen have reviewed medications reviewed 10/12/2018, patient seen eval reexamined during the rounds shortness of breath slightly better cough congestion is better patient swelling of the lower extremity has improved, I have discussed with nursing staff if CPAP machine that he uses at [facility] can be brought over here then we can resume with each night and when necessary during the day that we will expedite the recovery process Since M7-year-old male who was seen evaluated examined on third floor this patient is well-known to me he is a resident of extended care facility he has severe sleep apnea he uses BiPAP machine each night and when necessary during the day, he has a chronic hypoxia and on oxygen-dependent ready for 7 significant history of COPD, ischemic heart disease status post CABG for last few days patient has been more short of breath brought into the emergency department for further evaluation he was found to have increased swelling of the lower extremity his BNP level was 18,000 him a chest x-ray performed in the event his department revealed that patient has CHF-like changes with pulmonary vascular congestion and left basilar pneumonia with right subsegmental atelectasis, patient has been placed on broad-spectrum antibiotics, will require breathing treatments and short course of IV steroids as well Objective - Vital Signs Vital signs: Vital Signs Temp 97.9 F 10/14/18 19:53 Pulse 115 H 10/14/18 19:54 Resp 20 10/14/18 19:54 BP 102/59 10/14/18 19:53 Pulse Ox 97 10/14/18 19:53 Intake & Output 10/14/18 10/14/18 10/15/18 06:59 18:59 06:59 Intake Total 260 916 Output Total 200 750 200 Balance 60 166 -200 Weight 105.5 kg Intake: IV 160 0.9 160 Intake, IV Titration 100 100 Amount Piperacillin-Tazobactam 3 100 100 .375 gm In Sodium Chloride 0.9% 100 ml @ 25 mls/hr IVPB Q8HR [facility] Rx# :[id number] Oral 816 Output: Urine 200 750 200 Uretheral ([place]) 550 Other: Voiding Method Urinal Urinal Urinal Diaper # Voids 4 1 - Exam Constitutional General appearance: average body habitus, cooperative, disheveled, mild distress - EENT Eyes: anicteric sclerae, EOMI, PERRLA, poor dentition, normal appearance Ears: bilateral: normal - Neck Neck: normal ROM Carotids: bilateral: upstroke normal, bruit absent Thyroid: bilateral: normal size - Respiratory Respiratory: bilateral: diminished, rales, wheezing, prolonged expiration, negative: CTA, dullness, rhonchi, prolonged inspiration - Cardiovascular Rhythm: regular Heart sounds: normal: S1, S2 - Gastrointestinal General gastrointestinal: soft - Integumentary Integumentary: normal - Neurologic Neurologic: CNII-XII intact - Musculoskeletal Musculoskeletal: gait normal, generalized weakness, strength equal bilaterally - Psychiatric Psychiatric: A&O x's 3, appropriate affect, intact judgment & insight - Labs CBC & Chem 7: 10/14/18 06:36 10/14/18 08:46 Labs: Abnormal Lab Results - Last 24 Hours (Table) 10/13/18 10/14/18 10/14/18 Range/Units 21:31 06:36 06:46 RBC 3.87 L (4.30-5.90) m/uL Hgb 11.6 L (13.0-17.5) gm/dL Hct 36.2 L (39.0-53.0) % RDW 22.1 H (11.5-15.5) % Plt Count 120 L (150-450) k/uL PT (9.0-12.0) sec INR (<1.2) Sodium (137-145) mmol/L Carbon Dioxide (22-30) mmol/L BUN (9-20) mg/dL Creatinine (0.66-1.25) mg/dL Glucose (74-99) mg/dL POC Glucose (mg/dL) 170 H 142 H (75-99) mg/dL 10/14/18 10/14/18 10/14/18 Range/Units 08:46 08:46 11:55 RBC (4.30-5.90) m/uL Hgb (13.0-17.5) gm/dL Hct (39.0-53.0) % RDW (11.5-15.5) % Plt Count (150-450) k/uL PT 50.3 H (9.0-12.0) sec INR 5.2 H* (<1.2) Sodium 136 L (137-145) mmol/L Carbon Dioxide 18 L (22-30) mmol/L BUN 88 H (9-20) mg/dL Creatinine 1.93 H (0.66-1.25) mg/dL Glucose 144 H (74-99) mg/dL POC Glucose (mg/dL) 136 H (75-99) mg/dL 10/14/18 Range/Units 16:59 RBC (4.30-5.90) m/uL Hgb (13.0-17.5) gm/dL Hct (39.0-53.0) % RDW (11.5-15.5) % Plt Count (150-450) k/uL PT (9.0-12.0) sec INR (<1.2) Sodium (137-145) mmol/L Carbon Dioxide (22-30) mmol/L BUN (9-20) mg/dL Creatinine (0.66-1.25) mg/dL Glucose (74-99) mg/dL POC Glucose (mg/dL) 216 H (75-99) mg/dL Assessment and Plan Assessment: Left lower lobe pneumonia Acute COPD exacerbation Acute exacerbation of congestive heart failure likely acute on chronic systolic heart failure is Ejection fraction only 20% Right subsegmental lower lobe atelectasis Hyperkalemia Chronic renal failure stage III Plan: Gentle diuresis Optimize cardiac output Bronchodilator IV steroids Continue antibiotics with Levaquin and Zosyn left lower lobe pneumonia Deep breathing exercises incentive spirometry Monitor observe closely renal functions and potassium level Further recommendations pending plan of care as per clinical response of patient
[2018-10-15] MEDS ORDERED: ONDANSETRON 4 MG/2 ML VIAL IVP PRN (04:26)
[2018-10-15 06:39] LABS: Glucose,Whole Blood 143 mg/dL (75-99)
[2018-10-15 06:42] LABS: Anisocytosis Moderate; Basophils % (A) 0 %; Eosinophils % (A) 0 %; HCT 38.3 % (39.0-53.0); Hypochromasia Slight; Lymphocytes # (A) 0.4 k/uL (1.0-4.8); Lymphocytes % (A) 4 %; MCH 29.4 pg (25.0-35.0); MCHC 31.3 g/dL (31.0-37.0); MCV 93.7 fL (80.0-100.0); Macrocytosis Slight; Mean Platelet Volume 9.9; Monocytes # (A) 0.5 k/uL (0-1.0); Monocytes % (A) 5 %; Neutrophils # (A) 8.8 k/uL (1.3-7.7); Neutrophils % (A) 90 %; Platelet Count 102 k/uL (150-450); RBC 4.09 m/uL (4.30-5.90); RDW 23.3 % (11.5-15.5); WBC 9.8 k/uL (3.8-10.6)
[2018-10-15 06:48] LABS: INR 2.1 (<1.2); Prothrombin Time 20.4 sec (9.0-12.0)
[2018-10-15] MEDS: INSULIN ASPART (NovoLOG) 100 UNIT/ML VIAL SQ SCH ×4 (06:58→23:03)
[2018-10-15 07:00] LABS: Calcium 10.1 mg/dL (8.4-10.2); Potassium 4.9 mmol/L (3.5-5.1)
--- NOTE | 2018-10-15 07:37 | P.PN ---
Subjective Progress Note Date: 10/15/18 Principal diagnosis: Left lower lobe pneumonia, acute COPD exacerbation, congestive heart failure acute on chronic systolic heart failure, right lower lobe atelectasis, hyperkalemia, chronic renal failure 10/15/2018, patient seen eval examined during the rounds, doing well patient use the BiPAP machine last night has been tolerating very well elevated PT/INR has normalized now INR is 2.1, hemoglobin stable white cell count stable, renal functions noted to be keep on going up his BUN is 100 creatinines 2.36 symptomatically he is improved but renal functions appeared to be worse cardiology is adjusting the Lasix 10/14/2018, patient seen eval reexamined during the rounds his complain of chest pain or shortness of breath improved compared to yesterday he has been getting CPAP from skilled nursing did not sleep well last night labs reviewed medications reviewed care plan discussed with staff at length, his chest x-ray from today morning has been reviewed significantly improved compared to baseline admit x- ray 10/13/2018, patient seen eval reexamined during the rounds, overall doing better less short of breath less congested, swelling in the lower extremity has improv ed patient remains on supplemental oxygen have reviewed medications reviewed 10/12/2018, patient seen eval reexamined during the rounds shortness of breath slightly better cough congestion is better patient swelling of the lower extremity has improved, I have discussed with nursing staff if CPAP machine that he uses at [facility] can be brought over here then we can resume with each night and when necessary during the day that we will expedite the recovery process Since M7-year-old male who was seen evaluated examined on third floor this patient is well-known to me he is a resident of extended care facility he has severe sleep apnea he uses BiPAP machine each night and when necessary during the day, he has a chronic hypoxia and on oxygen-dependent ready for 7 significant history of COPD, ischemic heart disease status post CABG for last few days patient has been more short of breath brought into the emergency department for further evaluation he was found to have increased swelling of the lower extremity his BNP level was 18,000 him a chest x-ray performed in the event his department revealed that patient has CHF-like changes with pulmonary vascular congestion and left basilar pneumonia with right subsegmental atelectasis, patient has been placed on broad-spectrum antibiotics, will require breathing treatments and short course of IV steroids as well Objective - Vital Signs Vital signs: Vital Signs Temp 97.0 F L 10/15/18 04:00 Pulse 60 10/15/18 04:00 Resp 20 10/15/18 04:00 BP 107/57 10/15/18 04:00 Pulse Ox 99 10/15/18 04:00 Intake & Output 10/14/18 10/15/18 10/15/18 18:59 06:59 18:59 Intake Total 916 Output Total 750 200 Balance 166 -200 Weight 105 kg Intake: Intake, IV Titration 100 Amount Piperacillin-Tazobactam 3 100 .375 gm In Sodium Chloride 0.9% 100 ml @ 25 mls/hr IVPB Q8HR [facility] Rx# :[id number] Oral 816 Output: Urine 750 200 Uretheral (Valladares) 550 Other: Voiding Method Urinal Urinal # Voids 4 - Exam Constitutional General appearance: average body habitus, cooperative, disheveled, mild distress - EENT Eyes: anicteric sclerae, EOMI, PERRLA, poor dentition, normal appearance Ears: bilateral: normal - Neck Neck: normal ROM Carotids: bilateral: upstroke normal, bruit absent Thyroid: bilateral: normal size - Respiratory Respiratory: bilateral: diminished, rales, wheezing, prolonged expiration, negative: CTA, dullness, rhonchi, prolonged inspiration - Cardiovascular Rhythm: regular Heart sounds: normal: S1, S2 - Gastrointestinal General gastrointestinal: soft - Integumentary Integumentary: normal - Neurologic Neurologic: CNII-XII intact - Musculoskeletal Musculoskeletal: gait normal, generalized weakness, strength equal bilaterally - Psychiatric Psychiatric: A&O x's 3, appropriate affect, intact judgment & insight - Labs CBC & Chem 7: 10/15/18 06:16 10/15/18 06:16 Labs: Abnormal Lab Results - Last 24 Hours (Table) 10/14/18 10/14/18 10/14/18 Range/Units 06:36 08:46 08:46 RBC (4.30-5.90) m/uL Hgb (13.0-17.5) gm/dL Hct (39.0-53.0) % RDW (11.5-15.5) % Plt Count 120 L (150-450) k/uL Neutrophils # (1.3-7.7) k/uL Lymphocytes # (1.0-4.8) k/uL PT 50.3 H (9.0-12.0) sec INR 5.2 H* (<1.2) Sodium 136 L (137-145) mmol/L Carbon Dioxide 18 L (22-30) mmol/L BUN 88 H (9-20) mg/dL Creatinine 1.93 H (0.66-1.25) mg/dL Glucose 144 H (74-99) mg/dL POC Glucose (mg/dL) (75-99) mg/dL 10/14/18 10/14/18 10/14/18 Range/Units 11:55 16:59 20:33 RBC (4.30-5.90) m/uL Hgb (13.0-17.5) gm/dL Hct (39.0-53.0) % RDW (11.5-15.5) % Plt Count (150-450) k/uL Neutrophils # (1.3-7.7) k/uL Lymphocytes # (1.0-4.8) k/uL PT (9.0-12.0) sec INR (<1.2) Sodium (137-145) mmol/L Carbon Dioxide (22-30) mmol/L BUN (9-20) mg/dL Creatinine (0.66-1.25) mg/dL Glucose (74-99) mg/dL POC Glucose (mg/dL) 136 H 216 H 155 H (75-99) mg/dL 10/15/18 10/15/18 10/15/18 Range/Units 06:05 06:16 06:16 RBC 4.09 L (4.30-5.90) m/uL Hgb 12.0 L (13.0-17.5) gm/dL Hct 38.3 L (39.0-53.0) % RDW 23.3 H (11.5-15.5) % Plt Count 102 L (150-450) k/uL Neutrophils # 8.8 H (1.3-7.7) k/uL Lymphocytes # 0.4 L (1.0-4.8) k/uL PT 20.4 H (9.0-12.0) sec INR 2.1 H (<1.2) Sodium (137-145) mmol/L Carbon Dioxide (22-30) mmol/L BUN (9-20) mg/dL Creatinine (0.66-1.25) mg/dL Glucose (74-99) mg/dL POC Glucose (mg/dL) 143 H (75-99) mg/dL 10/15/18 Range/Units 06:16 RBC (4.30-5.90) m/uL Hgb (13.0-17.5) gm/dL Hct (39.0-53.0) % RDW (11.5-15.5) % Plt Count (150-450) k/uL Neutrophils # (1.3-7.7) k/uL Lymphocytes # (1.0-4.8) k/uL PT (9.0-12.0) sec INR (<1.2) Sodium (137-145) mmol/L Carbon Dioxide 20 L (22-30) mmol/L BUN 100 H (9-20) mg/dL Creatinine 2.36 H (0.66-1.25) mg/dL Glucose 147 H (74-99) mg/dL POC Glucose (mg/dL) (75-99) mg/dL Assessment and Plan Assessment: Acute on Chronic renal failure stage stage 4 Left lower lobe pneumonia Acute COPD exacerbation Acute exacerbation of congestive heart failure likely acute on chronic systolic heart failure is Ejection fraction only 20% Right subsegmental lower lobe atelectasis Hyperkalemia Plan: Gentle diuresis Optimize cardiac output Bronchodilator IV steroids Continue antibiotics with Levaquin and Zosyn left lower lobe pneumonia Deep breathing exercises incentive spirometry Monitor observe closely renal functions and potassium level Further recommendations pending plan of care as per clinical response of patient Time with Patient: Greater than 30
[2018-10-15] MEDS: GABAPENTIN 300 MG CAP PO SCH (08:29)
[2018-10-15] MEDS: FUROSEMIDE 10 MG/ML 2 ML VIAL IV SCH ×2 (08:29→20:29)
[2018-10-15] MEDS: CYANOCOBALAMIN 500 MCG TAB PO SCH (08:29)
[2018-10-15] MEDS: DOCUSATE 100 MG CAP PO SCH (08:29)
[2018-10-15] MEDS: METOPROLOL TARTRATE 25 MG TAB PO SCH ×2 (08:29→16:40)
[2018-10-15] MEDS: metFORMIN 500 MG TAB PO SCH (08:29)
[2018-10-15] MEDS: methylPREDNISolone SOD SUCCI 40 MG/ML 1 ML VIAL IV SCH ×2 (08:29→20:30)
[2018-10-15] MEDS: ACETAMINOPHEN TAB 500 MG TAB PO PRN ×2 (08:30→20:30)
[2018-10-15] MEDS: PIPERACILLIN-TAZOBACTAM 3.375 GM in SODIUM CHLORIDE 0.9% 100 ML IVPB SCH ×3 (08:30→23:04)
[2018-10-15] MEDS: SYMBICORT 80-4.5 MCG INHALER INHALATION SCH ×2 (09:01→19:27)
[2018-10-15] MEDS: IPRATROPIUM-ALBUTEROL 3 ML NEB INHALATION SCH ×4 (09:01→19:27)
--- NOTE | 2018-10-15 10:06 | P.NPCON ---
History of Present Illness - Reason for Consult acute renal failure, chronic renal failure - History of Present Illness Reason for the consultation: Acute kidney injury on chronic kidney disease History of present illness: Patient is a 77-year-old male seen in renal consultation for acute kidney injury and chronic kidney disease. Patient's creatinine in August 2018 was near 1. This admission renal function has been worse from before. Creatinine has been in the range of 1.6-1.9 and is up to 2.36 today. Patient presented to the hospital with dyspnea. He is currently being treated for COPD as well as pneumonia. He was also receiving Lasix 40 mg IV twice daily which was decreased to 20 mg twice daily due to worsening renal function. Patient does have history of systolic CHF with ejection fraction of 20-25% with moderate to severe aortic stenosis, moderate tricuspid regurgitation and moderate pulmonary hypertension. No edema in his lower extremities. He has been voiding. He is also having episodes of urinary retention and required straight catheterization yesterday. Denies hematuria or dysuria. Denies use of nonsteroidals. Oral intake is fair. Hemodynamically stable although his blood pressures have been low in the systolic 80s to 90s this admission. Patient does have history of diabetes and is maintained on metformin outpatient. UA is benign. Vital signs are stable. General: The patient appeared well nourished and normally developed. HEENT: Head exam is unremarkable. Neck is without jugular venous distension. LUNGS: Breath sounds decreased. HEART: Rate and Rhythm are regular. First and second heart sounds normal. No murmurs, rubs or gallops. ABDOMEN: Abdominal exam reveals normal bowel sounds. Non-tender and non- distended. No evidence of peritonitis. EXTREMITITES: No clubbing, cyanosis, or edema. Past Medical History Past Medical History: Coronary Artery Disease (CAD), CVA/TIA, Diabetes Mellitus, Myocardial Infarction ([place]) Additional Past Medical History / Comment(s): Congestive heart failure and cardiomyopathy Last Myocardial Infarction Date:: 1999 History of Any Multi-Drug Resistant Organisms: None Reported Past Surgical History: Appendectomy, Coronary Bypass/CABG, Tonsillectomy Additional Past Surgical History / Comment(s): CABG x5 1994 Past Anesthesia/Blood Transfusion Reactions: No Reported Reaction Past Psychological History: No Psychological Hx Reported Smoking Status: Former smoker Past Alcohol Use History: None Reported Past Drug Use History: None Reported - Past Family History Mother Family Medical History: Chest Pain / Angina, Coronary Artery Disease (CAD) Medications and Allergies Home Medications Medication Instructions Recorded Confirmed Type Cholecalciferol [Vitamin D3 (25 1,000 unit PO DAILY@1700 05/26/14 10/10/18 History Mcg = 1000 Iu)] Citalopram Hydrobromide [CeleXA] 10 mg PO DAILY 05/26/14 10/10/18 History Cyanocobalamin [Vitamin B-12] 1,000 mcg PO DAILY 05/26/14 10/10/18 History Docusate [Colace] 100 mg PO DAILY 05/26/14 10/10/18 History Isosorbide Mononitrate ER [Imdur] 60 mg PO BID@0800,1700 05/26/14 10/10/18 History Metoprolol Tartrate [Lopressor] 100 mg PO BID@0800,1700 05/26/14 10/10/18 History Nitroglycerin Sl Tabs [Nitrostat] 0.4 mg SUBLINGUAL Q5M PRN 05/26/14 10/10/18 History Ranolazine [Ranexa] 500 mg PO BID@0800,1700 05/26/14 10/10/18 History Simvastatin [Zocor] 20 mg PO HS 05/26/14 10/10/18 History Sodium Chloride [Saline Nasal Mist] 1 spray EA NOSTRIL HS 05/26/14 10/10/18 History Spironolactone [Aldactone] 25 mg PO DAILY 05/26/14 10/10/18 History Allopurinol [Zyloprim] 100 mg PO DAILY tab 05/30/14 10/10/18 Rx Lisinopril [Zestril] 5 mg PO DAILY tab 05/30/14 10/10/18 Rx Acetaminophen Tab [Tylenol] 1,000 mg PO HS PRN 10/10/18 10/10/18 History Aspirin 81 mg PO DAILY@1700 10/10/18 10/10/18 History Bisacodyl [Dulcolax] 10 mg RECTAL DAILY PRN 10/10/18 10/10/18 History Carboxymethylcellulose Sodium 2 drop BOTH EYES DAILY PRN 10/10/18 10/10/18 History [Refresh Tears] Fluticasone Nasal Fisher [Flonase 1 spray EA NOSTRIL DAILY 10/10/18 10/10/18 History Nasal Fisher] Fluticasone/Vilanterol [Breo 1 puff INHALATION RT-DAILY@0800 10/10/18 10/10/18 History Ellipta 100-25 Mcg Inhaler] Furosemide [Lasix] 40 mg PO DAILY 10/10/18 10/10/18 History Gabapentin [Neurontin] 300 mg PO DAILY 10/10/18 10/10/18 History Loratadine [Claritin] 10 mg PO DAILY PRN 10/10/18 10/10/18 History Magnesium Hydroxide [Milk of 7,200 mg PO DAILY PRN 10/10/18 10/10/18 History Magnesia Concentrate] Na Phos,M-B/Na Phos,Di-Ba [Fleet 133 ml RECTAL DAILY PRN 10/10/18 10/10/18 History Adult] Nasal Gel 1 applic EA NOSTRIL DAILY PRN 10/10/18 10/10/18 History Potassium Chloride [Klor-Con 10] 10 meq PO DAILY@0800 10/10/18 10/10/18 History Warfarin Sodium [Coumadin] 2 mg PO SUTUWEFRSA 10/10/18 10/10/18 History Warfarin [Coumadin] 3 mg PO MOTH 10/10/18 10/10/18 History guaiFENesin [guaiFENesin Oral 200 mg PO Q4H PRN 10/10/18 10/10/18 History Solution] metFORMIN HCL [Glucophage] 500 mg PO BID@0800,1700 10/10/18 10/10/18 History Allergies Allergy/AdvReac Type Severity Reaction Status Date / Time No Known Allergies Allergy Verified 10/10/18 22:55 Physical Exam Vitals: Vital Signs Temp Pulse Pulse Resp BP Pulse Ox 10/15/18 09:19 96 10/15/18 09:03 92 10/15/18 08:00 96.0 F L 79 18 113/68 91 L 10/15/18 04:00 97.0 F L 60 19 107/57 99 10/15/18 00:00 97.6 F 73 20 109/58 97 10/14/18 19:54 115 H 20 10/14/18 19:53 97.9 F 115 H 20 102/59 97 10/14/18 19:21 100 10/14/18 19:09 98 10/14/18 17:00 60 103/52 10/14/18 15:50 100 10/14/18 15:40 102 H 95 10/14/18 15:34 97.5 F L 60 20 96/53 93 L 10/14/18 12:00 97.9 F 76 18 96/53 93 L 10/14/18 11:53 106 H 10/14/18 11:43 98 Intake and Output 10/14/18 10/15/18 10/15/18 22:59 06:59 14:59 Intake Total 240 236 Output Total 750 Balance -510 236 Intake: Oral 240 236 Output: Urine 750 Uretheral (Valladares) 550 Other: Voiding Method Urinal Urinal Urinal # Voids 0 4 Weight 105 kg Results - Lab Results Most recent lab results Calcium 10.1 mg/dL (8.4-10.2) 10/15/18 06:16 10/15/18 06:16 10/15/18 06:16 Assessment and Plan Plan: Assessment: 1. Acute kidney injury mostly prerenal secondary to diuresis and hypotension. Creatinine up to 2.36 today. Rule out obstructive uropathy. UA benign. 2. Rule out chronic kidney disease. Patient's creatinine in August 2018 was near 1 and this admission it has been in the range of mostly 1.4-1.7. 3. Systolic CHF with ejection fraction of 20-25% with moderate to severe aortic stenosis, moderate tricuspid regurgitation and moderate pulmonary hypertension. 4. Diabetes mellitus. 5. Pneumonia maintain on antibiotics. 6. COPD exacerbation maintained on steroids and bronchodilator therapy. 7. Metabolic acidosis secondary to acute kidney injury. 8. Urinary retention. Patient required straight catheterization yesterday. Plan: Maintain Lasix 20 mg IV twice daily. Agree with discontinuing lisinopril. Continue to monitor bladder scans due to underlying urinary retention. May need Valladares catheter. Check renal ultrasound. Discontinue metformin. Continue to monitor renal function and urine output. Repeat electrolytes in the morning. Thank you for the consultation. I will continue to follow patient with you during his hospital stay.
--- NOTE | 2018-10-15 10:56 | US ---
EXAMINATION TYPE: US kidneys/renal and bladder DATE OF EXAM: 10/15/2018 COMPARISON: NONE CLINICAL HISTORY: matias. MATIAS EXAM MEASUREMENTS: Right Kidney: 9.8 x 5.2 x 4.6 cm Left Kidney: 9.4 x 5.3 x 5.6 cm Technical limitations due to patient's body habitus and limited mobility Right Kidney: lower pole obscured by overlying bowel content, no evidence of hydronephrosis Left Kidney: no evidence of hydronephrosis Bladder: not fully distended Bilateral Jets seen: no Mild free fluid noted within pelvis and RUQ IMPRESSION: 1. SMALL AMOUNT OF ASCITES. 2. NO DEFINITE RENAL DISEASE. 3. LIMITED VIEWS OF THE BLADDER WITHOUT VISUALIZATION OF THE URETERAL JETS.
[2018-10-15 11:49] LABS: Glucose,Whole Blood 140 mg/dL (75-99)
--- NOTE | 2018-10-15 13:08 | P.PN ---
Subjective This pleasant 77-year-old male past medical history significant for ischemic cardiomyopathy, coronary artery disease status post bypass grafting, prior permanent pacemaker implantation and acute on chronic renal failure. He is currently in the hospital secondary to progressive shortness of breath. His renal function has been worsening and there has been adjustments made to his diuretics as well as his antihypertensive therapy. He has been seen in evaluation by nephrology this morning and is scheduled to go for renal ultrasound. He states overall he continues to feel short of breath. Denies chest pain, dizziness or palpitations. Laboratory data reviewed, WBC 9.8, hemoglobin 12, platelets 102, INR 2.1, sodium 137, potassium 4.9, creatinine 2.36. Blood pressure 104/63 heart rate 61 afebrile maintaining oxygen saturation on nasal cannula. Currently maintained on aspirin 81 mg daily, atorvastatin 10 mg daily, Lasix point milligrams IV twice a day, Lopressor 25 mg twice a day. GENERAL: Well-appearing, well-nourished and in no acute distress. NECK: Supple without JVD or thyromegaly. LUNGS: Breath sounds clear to auscultation bilaterally. Respiration equal and unlabored. No wheezes, rales or rhonchi. Diminished bilaterally. HEART: Regular rate and rhythm with systolic ejection murmur at the left sternal border, no rubs or gallops. S1 and S2 heard. EXTREMITIES: Normal range of motion, 1+ bilateral lower extremity pitting edema. No clubbing or cyanosis. Peripheral pulses intact. ASSESSMENT Acute on chronic systolic heart failure Acute kidney injury History of coronary artery disease status post bypass grafting Hypertension Dyslipidemia Diabetes mellitus Permanent pacemaker implantation Paroxysmal atrial fibrillation on long-term anticoagulation PLAN Continue current medical regimen. His blood pressure tolerates we will initiate hydralazine 10 mg twice a day starting tomorrow. Further recommendations to follow based upon clinical course. Nurse Practitioner note has been reviewed, I agree with a documented findings and plan of care. Patient was seen and examined. Objective - Vital Signs Vital signs: Vital Signs Temp 96.5 F L 10/15/18 12:00 Pulse 100 10/15/18 12:24 Resp 18 10/15/18 12:00 BP 104/63 10/15/18 12:00 Pulse Ox 95 10/15/18 12:00 Intake & Output 10/14/18 10/15/18 10/15/18 18:59 06:59 18:59 Intake Total 916 236 Output Total 750 200 Balance 166 -200 236 Weight 105 kg Intake: Intake, IV Titration 100 Amount Piperacillin-Tazobactam 3 100 .375 gm In Sodium Chloride 0.9% 100 ml @ 25 mls/hr IVPB Q8HR [facility] Rx# :[id number] Oral 816 236 Output: Urine 750 200 Uretheral (Valladares) 550 Other: Voiding Method Urinal Urinal Urinal # Voids 4 - Labs CBC & Chem 7: 10/15/18 06:16 10/15/18 06:16 Labs: Abnormal Lab Results - Last 24 Hours (Table) 10/14/18 10/14/18 10/15/18 Range/Units 16:59 20:33 06:05 RBC (4.30-5.90) m/uL Hgb (13.0-17.5) gm/dL Hct (39.0-53.0) % RDW (11.5-15.5) % Plt Count (150-450) k/uL Neutrophils # (1.3-7.7) k/uL Lymphocytes # (1.0-4.8) k/uL PT (9.0-12.0) sec INR (<1.2) Carbon Dioxide (22-30) mmol/L BUN (9-20) mg/dL Creatinine (0.66-1.25) mg/dL Glucose (74-99) mg/dL POC Glucose (mg/dL) 216 H 155 H 143 H (75-99) mg/dL 10/15/18 10/15/18 10/15/18 Range/Units 06:16 06:16 06:16 RBC 4.09 L (4.30-5.90) m/uL Hgb 12.0 L (13.0-17.5) gm/dL Hct 38.3 L (39.0-53.0) % RDW 23.3 H (11.5-15.5) % Plt Count 102 L (150-450) k/uL Neutrophils # 8.8 H (1.3-7.7) k/uL Lymphocytes # 0.4 L (1.0-4.8) k/uL PT 20.4 H (9.0-12.0) sec INR 2.1 H (<1.2) Carbon Dioxide 20 L (22-30) mmol/L BUN 100 H (9-20) mg/dL Creatinine 2.36 H (0.66-1.25) mg/dL Glucose 147 H (74-99) mg/dL POC Glucose (mg/dL) (75-99) mg/dL 10/15/18 Range/Units 11:48 RBC (4.30-5.90) m/uL Hgb (13.0-17.5) gm/dL Hct (39.0-53.0) % RDW (11.5-15.5) % Plt Count (150-450) k/uL Neutrophils # (1.3-7.7) k/uL Lymphocytes # (1.0-4.8) k/uL PT (9.0-12.0) sec INR (<1.2) Carbon Dioxide (22-30) mmol/L BUN (9-20) mg/dL Creatinine (0.66-1.25) mg/dL Glucose (74-99) mg/dL POC Glucose (mg/dL) 140 H (75-99) mg/dL
[2018-10-15 16:33] LABS: Glucose,Whole Blood 160 mg/dL (75-99)
[2018-10-15] MEDS: ASPIRIN 81 MG PO SCH (16:41)
[2018-10-15] MEDS: CHOLECALCIFEROL 1,000 UNIT TAB PO SCH (16:41)
[2018-10-15] MEDS ORDERED: WARFARIN 2 MG TAB PO ONE (18:00)
[2018-10-15] MEDS: ATORVASTATIN 10 MG TAB PO SCH (20:29)
[2018-10-15 20:48] LABS: Glucose,Whole Blood 171 mg/dL (75-99)
[2018-10-16 06:31] LABS: Glucose,Whole Blood 178 mg/dL (75-99)
[2018-10-16] MEDS: INSULIN ASPART (NovoLOG) 100 UNIT/ML VIAL SQ SCH ×2 (06:52→12:19)
[2018-10-16 07:26] LABS: Anisocytosis Moderate; Basophils % (A) 0 %; Eosinophils % (A) 0 %; HCT 36.2 % (39.0-53.0); HGB 11.5 gm/dL (13.0-17.5); Hypochromasia Slight; Lymphocytes # (A) 0.3 k/uL (1.0-4.8); Lymphocytes % (A) 3 %; MCH 29.7 pg (25.0-35.0); MCHC 31.8 g/dL (31.0-37.0); MCV 93.3 fL (80.0-100.0); Macrocytosis Slight; Mean Platelet Volume 9.7; Monocytes # (A) 0.5 k/uL (0-1.0); Monocytes % (A) 5 %; Neutrophils # (A) 10.2 k/uL (1.3-7.7); Neutrophils % (A) 91 %; Platelet Count 105 k/uL (150-450); RBC 3.88 m/uL (4.30-5.90); RDW 22.2 % (11.5-15.5); WBC 11.1 k/uL (3.8-10.6)
[2018-10-16 07:31] LABS: Calcium 10.1 mg/dL (8.4-10.2); Magnesium 1.9 mg/dL (1.6-2.3); Potassium 5.5 mmol/L (3.5-5.1)
[2018-10-16 07:32] LABS: INR 1.5 (<1.2); Prothrombin Time 15.2 sec (9.0-12.0)
[2018-10-16] MEDS: methylPREDNISolone SOD SUCCI 40 MG/ML 1 ML VIAL IV SCH (07:54)
[2018-10-16] MEDS: FUROSEMIDE 10 MG/ML 2 ML VIAL IV SCH (07:55)
[2018-10-16] MEDS: CYANOCOBALAMIN 500 MCG TAB PO SCH (07:55)
[2018-10-16] MEDS: DOCUSATE 100 MG CAP PO SCH (07:55)
[2018-10-16] MEDS: METOPROLOL TARTRATE 25 MG TAB PO SCH (07:55)
[2018-10-16] MEDS: GABAPENTIN 300 MG CAP PO SCH (07:55)
[2018-10-16] MEDS: PIPERACILLIN-TAZOBACTAM 3.375 GM in SODIUM CHLORIDE 0.9% 100 ML IVPB SCH (07:56)
[2018-10-16 08:11] VITALS: RESP 16
[2018-10-16] MEDS: SYMBICORT 80-4.5 MCG INHALER INHALATION SCH (08:29)
[2018-10-16] MEDS: IPRATROPIUM-ALBUTEROL 3 ML NEB INHALATION SCH ×3 (08:29→15:28)
[2018-10-16] MEDS ORDERED: SODIUM BICARB 8.4% 50 ML SYR (1 MEQ/ML) IV STA (09:14)
[2018-10-16] MEDS ORDERED: INSULIN REGULAR 100 UNIT/ML VIAL IV ONE (09:14)
[2018-10-16] MEDS ORDERED: DEXTROSE 50% SYRINGE 50 ML IVP STA (09:14)
[2018-10-16] MEDS ORDERED: FUROSEMIDE 10 MG/ML 10 ML VIAL IV STA (09:14)
[2018-10-16] MEDS ORDERED: SODIUM BICARBONATE TAB 650 MG TAB PO SCH (09:15)
--- NOTE | 2018-10-16 09:17 | P.PN ---
Subjective Patient is seen in follow-up for acute kidney injury on chronic kidney disease. Patient's creatinine in August 2018 was near 1. Today it is up to 2.77 and BUN of 123. Patient has a Valladares catheter for urinary retention. Oral intake has been poor. Currently he is on Lasix 20 mg IV twice daily. He is also maintained on IV steroids. Urine output has been low. Vital signs are stable. General: The patient appeared well nourished and normally developed. HEENT: Head exam is unremarkable. Neck is without jugular venous distension. LUNGS: Breath sounds decreased. HEART: Rate and Rhythm are regular. First and second heart sounds normal. No murmurs, rubs or gallops. ABDOMEN: Abdominal exam reveals normal bowel sounds. Non-tender and non-diste nded. No evidence of peritonitis. EXTREMITITES: No clubbing, cyanosis, or edema. Objective - Vital Signs Vital signs: Vital Signs Temp 97.8 F 10/16/18 08:05 Pulse 86 10/16/18 08:45 Resp 16 10/16/18 08:05 BP 111/63 10/16/18 08:05 Pulse Ox 93 L 10/16/18 08:31 Intake & Output 10/15/18 10/16/18 10/16/18 18:59 06:59 18:59 Intake Total 586 280 Output Total 150 150 Balance 436 130 Weight 107 kg Intake: IV 40 0.9 40 Oral 586 240 Output: Urine 150 150 Other: Voiding Method Indwelling Catheter Indwelling Catheter Indwelling Catheter # Emeses 1 - Labs CBC & Chem 7: 10/16/18 06:28 10/16/18 06:28 Labs: Abnormal Lab Results - Last 24 Hours (Table) 10/15/18 10/15/18 10/15/18 Range/Units 11:48 16:32 20:47 WBC (3.8-10.6) k/uL RBC (4.30-5.90) m/uL Hgb (13.0-17.5) gm/dL Hct (39.0-53.0) % RDW (11.5-15.5) % Plt Count (150-450) k/uL Neutrophils # (1.3-7.7) k/uL Lymphocytes # (1.0-4.8) k/uL PT (9.0-12.0) sec INR (<1.2) Sodium (137-145) mmol/L Potassium (3.5-5.1) mmol/L Carbon Dioxide (22-30) mmol/L BUN (9-20) mg/dL Creatinine (0.66-1.25) mg/dL Glucose (74-99) mg/dL POC Glucose (mg/dL) 140 H 160 H 171 H (75-99) mg/dL 10/16/18 10/16/18 10/16/18 Range/Units 06:28 06:28 06:28 WBC 11.1 H (3.8-10.6) k/uL RBC 3.88 L (4.30-5.90) m/uL Hgb 11.5 L (13.0-17.5) gm/dL Hct 36.2 L (39.0-53.0) % RDW 22.2 H (11.5-15.5) % Plt Count 105 L (150-450) k/uL Neutrophils # 10.2 H (1.3-7.7) k/uL Lymphocytes # 0.3 L (1.0-4.8) k/uL PT 15.2 H (9.0-12.0) sec INR 1.5 H (<1.2) Sodium 135 L (137-145) mmol/L Potassium 5.5 H (3.5-5.1) mmol/L Carbon Dioxide 19 L (22-30) mmol/L BUN 123 H* (9-20) mg/dL Creatinine 2.77 H (0.66-1.25) mg/dL Glucose 142 H (74-99) mg/dL POC Glucose (mg/dL) (75-99) mg/dL 10/16/18 Range/Units 06:30 WBC (3.8-10.6) k/uL RBC (4.30-5.90) m/uL Hgb (13.0-17.5) gm/dL Hct (39.0-53.0) % RDW (11.5-15.5) % Plt Count (150-450) k/uL Neutrophils # (1.3-7.7) k/uL Lymphocytes # (1.0-4.8) k/uL PT (9.0-12.0) sec INR (<1.2) Sodium (137-145) mmol/L Potassium (3.5-5.1) mmol/L Carbon Dioxide (22-30) mmol/L BUN (9-20) mg/dL Creatinine (0.66-1.25) mg/dL Glucose (74-99) mg/dL POC Glucose (mg/dL) 178 H (75-99) mg/dL Assessment and Plan Plan: Assessment: 1. Acute kidney injury mostly prerenal secondary to diuresis and hypotension. Creatinine up to 2.77 today. No evidence of hydronephrosis noted on renal ultrasound. UA benign. BUN is elevated which is due to renal failure as well as IV steroids. No signs of active bleeding. 2. Rule out chronic kidney disease. Patient's creatinine in August 2018 was near 1 and this admission it has been in the range of mostly 1.4-1.7. 3. Systolic CHF with ejection fraction of 20-25% with moderate to severe aortic stenosis, moderate tricuspid regurgitation and moderate pulmonary hypertension. 4. Diabetes mellitus. 5. Pneumonia maintain on antibiotics. 6. COPD exacerbation maintained on steroids and bronchodilator therapy. 7. Metabolic acidosis secondary to acute kidney injury. 8. Urinary retention. Now has a Valladares catheter. 9. Hyperkalemia secondary to acute kidney injury and metabolic acidosis. Plan: Discontinue Lasix 20 mg IV twice daily. Lasix 60 mg IV once today. 10 units of IV insulin with an amp of D50 now. 2A sodium bicarbonate IV push now. Repeat potassium level this afternoon. Maintain Valladares catheter. Strict is and os. Due to patient's age and comorbidities, especially the severe cardiomyopathy, he will not be a good long-term candidate for renal replacement therapy. However the patient states that he will proceed with renal replacement therapy if needed.
[2018-10-16] MEDS ORDERED: DEXTROSE 10 % IN WATER 250 ML IV ONE (09:23)
--- NOTE | 2018-10-16 10:11 | P.PN ---
Subjective From the records This very pleasant 77-year-old gentleman who comes into the ER for above- mentioned complaint. Patient says that he lives in [facility]. He is hard of hearing but is alert oriented 3. He said that for the past few days, he's been having more shortness of breath and usual. His doctor in the [place] [facility] started him on water pills but he was still short of breath and is coughing still so he was brought into the ER for further evaluation and management. Patient otherwise does not complain of any chest pain, no racing heart, no abdominal pain, nausea and vomiting, or diarrhea constipation, no tingling numbness on his extremities, no itch no rash ER course-vitals the time of admission showed temperature 98.4 pulse 96 blood pressure 105/72 satting 96% on 4 L. Labwork on admission showed WAC 10.7 hemoglobin 12.5 platelets 108 d-dimer 0.96 sodium 135 potassium 6.3 B1 77 creatinine 1.78 AST 49 ALT 29 alk phos 202 albumin 4.1. Chest x-ray shows findings suggestive of congestion and also there is left lower lobe obesity indicating possible pneumonia. patient was started on Levaquin and Zosyn, he was also started on Lasix 40 mg daily and admitted to the hospitalist service a further evaluation and management. 10/12/2018 Patient says that her shortness of breath is better. His swelling in the feet is improving No chest pain or racing heart 10/13/2018 Patient shortness of breath is better. Patient is talking much better with less short of breath on talking when compared to yesterday His leg swelling is improving No chest pain or racing heart Subjective: 10/14/2018 This is a pleasant 77 years old male with past medical history of COPD, congestive heart failure presents with signs symptoms of left lower lobe pneumonia and acute COPD exacerbation as well as worsening congestive heart failure. Also patient found to have trending up creatinine. 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 He is also was on Coumadin for history of DVT in his left leg, patient unsure how long ago was that. On admission his INR was supratherapeutic 3.0, today is tr ending up to 5.2. He was started on Levaquin and Zosyn for his pneumonia. We're going to order a CAT scan of the head to rule out intracranial hemorrhage, since patient was complaining this morning of from frontal headache although it looks more related to his sinus problem. We'll check chest x-ray. Patient is being followed closely by pulmonary and cardiology team. Also consult nephrology team in view of worsening creatinine 10/15/2018 Patient is still feels the same although his more awake and alert today. He still have some dyspnea with coughing. He denies chest pain. His headache looks more controlled. Clinically looks not much change from yesterday. He is on 2 L oxygen which is at home as he confirmed to me today. At 113/68 and heart rate 79. Labs reviewed, CBC is stable hemoglobin. Platelets 102, INR is down to 2.1 today. Creatinine is trending up to 2.36. Nephrology input is appreciated, hold lisinopril and metformin, continue with a small dose of Lasix. Check renal ultrasound. 10/16/2018 Patient is awake, history looks tired and dyspneic. No chest pain. He still have some occasional cough. No headache. Vitals are stable and his saturating 93% on 3 L. Has mild leukocytosis at 11.1 K, platelets stable at 105, her INR is subtherapeutic today at 1.5, we will give 4 mg of Coumadin instead of his usual dose of 3 mg. we will start the patient on heparin drip for bridging. His creatinine is trending up to 2.7, potassium 5.5. Patient given insulin with glucose and by And follow-up potassium level. Also patient provided 1 dose of Lasix 60 mg today by nephrology team. Renal replacement therapy is being considered by circular knitter. me today.Review of systems CONSTITUTIONAL: No fever, no malaise, no fatigue. HEENT: No recent visual problems or hearing problems. Denied any sore throat. CARDIOVASCULAR: no palpitations, no syncope. PULMONARY:no hemoptysis. GASTROINTESTINAL: No diarrhea, no nausea, no vomiting, no abdominal pain. Normoactive bowel sounds. NEUROLOGICAL: No headaches, no weakness, no numbness. HEMATOLOGICAL: Denies any bleeding or petechiae. GENITOURINARY: Denies any burning micturition, frequency, or urgency. MUSCULOSKELETAL/RHEUMATOLOGICAL: Denies any joint pain, swelling, or any muscle pain. ENDOCRINE: Denies any polyuria or polydipsia. Active Medications Generic Name Dose Route Start Last Admin Trade Name Samq PRN Reason Stop Dose Admin Acetaminophen 1,000 mg 10/11/18 01:46 10/15/18 20:30 Tylenol Tab PO 1,000 mg HS PRN Administration Pain Albuterol/Ipratropium 3 ml 10/11/18 20:00 10/16/18 08:29 Duoneb 0.5 Mg-3 Mg/3 Ml Soln INHALATION 3 ml RT-QID GRACE Administration Aspirin 81 mg 10/11/18 17:00 10/15/18 16:41 Aspirin PO 81 mg DAILY@1700 GRACE Administration Atorvastatin Calcium 10 mg 10/11/18 21:00 10/15/18 20:29 Lipitor PO 10 mg HS GRACE Administration Bisacodyl 10 mg 10/11/18 01:46 Dulcolax RECTAL DAILY PRN Constipation Budesonide/Formoterol Fumarate 2 puff 10/11/18 08:00 10/16/18 08:29 Symbicort 80-4.5 Mcg Inhaler INHALATION 2 puff RT-BID GRACE Administration Cholecalciferol 1,000 unit 10/11/18 17:00 10/15/18 16:41 Vitamin D3 (25 Mcg = 1000 Iu) PO 1,000 unit DAILY@1700 GRACE Administration Cyanocobalamin 1,000 mcg 10/11/18 09:00 10/16/18 07:55 Vitamin B-12 PO 1,000 mcg DAILY GRACE Administration Docusate Sodium 100 mg 10/11/18 09:00 10/16/18 07:55 Colace PO 100 mg DAILY GRACE Administration Gabapentin 300 mg 10/11/18 09:00 10/16/18 07:55 Neurontin PO 300 mg DAILY GRACE Administration Guaifenesin/Dextromethorphan 10 ml 10/12/18 14:20 Robitussin Dm PO Q6H PRN Cough Piperacillin Sod/Tazobactam 100 mls @ 25 mls/hr 10/11/18 08:00 10/16/18 07:56 Sod 3.375 gm/ Sodium Chloride IVPB 25 mls/hr Q8HR GRACE Administration Insulin Aspart 0 unit 10/12/18 12:30 10/16/18 06:52 Novolog SQ 4 unit ACHS GRACE Administration Protocol Magnesium Hydroxide 2,400 mg 10/11/18 01:46 Milk Of Magnesia PO DAILY PRN Constipation Methylprednisolone Sodium Succinate 40 mg 10/11/18 21:00 10/16/18 07:54 Solu-Medrol IV 40 mg Q12HR GRAEC Administration Metoprolol Tartrate 25 mg 10/14/18 17:00 10/16/18 07:55 Lopressor PO 25 mg BID@0800,1700 GRACE Administration Miscellaneous Information 1 each 10/15/18 17:04 Coumadin Per Pharmacy MISCELLANE DIRECTED PRN Per Protocol Ondansetron HCl 4 mg 10/15/18 04:26 10/15/18 04:38 Zofran IVP 4 mg Q6HR PRN Administration Nausea And Vomiting Sodium Bicarbonate 650 mg 10/16/18 09:15 Sodium Bicarbonate Tab PO BID GRACE Sodium Chloride 10 ml 10/11/18 09:00 10/16/18 07:56 Saline Flush IV 10 ml BID GRACE Administration Warfarin Sodium 4 mg 10/16/18 18:00 Coumadin PO 10/16/18 18:01 ONCE@1800 ONE Objective - Vital Signs Vital signs: Vital Signs Temp 97.8 F 10/16/18 08:05 Pulse 86 10/16/18 08:45 Resp 16 10/16/18 08:05 BP 111/63 10/16/18 08:05 Pulse Ox 93 L 10/16/18 08:31 Intake & Output 10/15/18 10/16/18 10/16/18 18:59 06:59 18:59 Intake Total 586 280 180 Output Total 150 150 Balance 436 130 180 Weight 107 kg Intake: IV 40 0.9 40 Oral 586 240 180 Output: Urine 150 150 Other: Voiding Method Indwelling Catheter Indwelling Catheter Indwelling Catheter # Emeses 1 - Exam GENERAL: The patient is alert and oriented x3, not in any acute distress. Well developed, well nourished. HEENT: Pupils are round and equally reacting to light. EOMI. No scleral icterus. No conjunctival pallor. Normocephalic, atraumatic. No pharyngeal erythema. No thyromegaly. CARDIOVASCULAR: S1 and S2 present. No murmurs, rubs, or gallops. PULMONARY: Chest is clear to auscultation, no wheezing or crackles. ABDOMEN: Soft, nontender, nondistended, normoactive bowel sounds. No palpable organomegaly. MUSCULOSKELETAL: No joint swelling or deformity. -EXTREMITIES: No cyanosis, clubbing, or pedal edema. Ecchymosis on both fo rearms NEUROLOGICAL: Gross neurological examination did not reveal any focal deficits. SKIN: No rashes. - Labs CBC & Chem 7: 10/16/18 06:28 10/16/18 06:28 Labs: Abnormal Lab Results - Last 24 Hours (Table) 10/15/18 10/15/18 10/15/18 Range/Units 11:48 16:32 20:47 WBC (3.8-10.6) k/uL RBC (4.30-5.90) m/uL Hgb (13.0-17.5) gm/dL Hct (39.0-53.0) % RDW (11.5-15.5) % Plt Count (150-450) k/uL Neutrophils # (1.3-7.7) k/uL Lymphocytes # (1.0-4.8) k/uL PT (9.0-12.0) sec INR (<1.2) Sodium (137-145) mmol/L Potassium (3.5-5.1) mmol/L Carbon Dioxide (22-30) mmol/L BUN (9-20) mg/dL Creatinine (0.66-1.25) mg/dL Glucose (74-99) mg/dL POC Glucose (mg/dL) 140 H 160 H 171 H (75-99) mg/dL 10/16/18 10/16/18 10/16/18 Range/Units 06:28 06:28 06:28 WBC 11.1 H (3.8-10.6) k/uL RBC 3.88 L (4.30-5.90) m/uL Hgb 11.5 L (13.0-17.5) gm/dL Hct 36.2 L (39.0-53.0) % RDW 22.2 H (11.5-15.5) % Plt Count 105 L (150-450) k/uL Neutrophils # 10.2 H (1.3-7.7) k/uL Lymphocytes # 0.3 L (1.0-4.8) k/uL PT 15.2 H (9.0-12.0) sec INR 1.5 H (<1.2) Sodium 135 L (137-145) mmol/L Potassium 5.5 H (3.5-5.1) mmol/L Carbon Dioxide 19 L (22-30) mmol/L BUN 123 H* (9-20) mg/dL Creatinine 2.77 H (0.66-1.25) mg/dL Glucose 142 H (74-99) mg/dL POC Glucose (mg/dL) (75-99) mg/dL 10/16/18 Range/Units 06:30 WBC (3.8-10.6) k/uL RBC (4.30-5.90) m/uL Hgb (13.0-17.5) gm/dL Hct (39.0-53.0) % RDW (11.5-15.5) % Plt Count (150-450) k/uL Neutrophils # (1.3-7.7) k/uL Lymphocytes # (1.0-4.8) k/uL PT (9.0-12.0) sec INR (<1.2) Sodium (137-145) mmol/L Potassium (3.5-5.1) mmol/L Carbon Dioxide (22-30) mmol/L BUN (9-20) mg/dL Creatinine (0.66-1.25) mg/dL Glucose (74-99) mg/dL POC Glucose (mg/dL) 178 H (75-99) mg/dL Assessment and Plan Assessment: Left lower lobe pneumonia Acute COPD exacerbation Acute on chronic systolic congestive heart failure with ejection fraction 20% Acute kidney injury Hyperkalemia Coagulopathy secondary to Coumadin History of DVT on Coumadin Chronic hypoxic respiratory failure secondary to above Acute on chronic Sinusitis Frontal headache, mostly secondary to sinusitis Plan: This is a pleasant 77 years old male who presents with pneumonia, COPD and CHF. Also as correct and trending up. Patient is currently on Lasix and Solu-Medrol. Nephrology team considering her renal replacement. Continue with antibiotics however we are going to hold Levaquin in view of his improving pneumonia and trending up INR. CAT scan of the head showing no acute hemorrhage.Labs and medication were reviewed.. Continue same treatment. Continue with symptomatic treatment. Resume home medication. Monitor lytes and vitals. DVT and GI prophylaxis. Further recommendations of the clinical course of the patient DVT prophylaxis: On Coumadin GI Prophylaxis: Pepcid PT/OT: Pending CODE STATUS: Full code, discussed with the patient Prognosis is guarded
[2018-10-16] MEDS ORDERED: HEPARIN SODIUM,PORCINE 5,000 UNIT/ML 1 ML VIAL IV ONE (10:59)
[2018-10-16] MEDS ORDERED: HEPARIN SODIUM,PORCINE 5,000 UNIT/ML 1 ML VIAL IV PRN (10:59)
[2018-10-16] MEDS ORDERED: HEPARIN SOD,PORK IN 0.45% NACL 25,000 UNIT in 0.45% NACL 1 250ML.BAG IV SCH ×2 (11:00→11:30)
[2018-10-16] MEDS ORDERED: HEPARIN SODIUM,PORCINE 5,000 UNIT/ML 1 ML VIAL ONE (11:33)
[2018-10-16 11:58] LABS: INR 1.5 (<1.2); Partial Thromboplastin Time 26.7 sec (22.0-30.0); Prothrombin Time 15.1 sec (9.0-12.0)
[2018-10-16 12:09] LABS: Anisocytosis Moderate; Basophils % (A) 0 %; Eosinophils % (A) 0 %; HGB 11.2 gm/dL (13.0-17.5); Hypochromasia Slight; Lymphocytes # (A) 0.3 k/uL (1.0-4.8); Lymphocytes % (A) 3 %; MCH 29.7 pg (25.0-35.0); MCHC 31.9 g/dL (31.0-37.0); Macrocytosis Slight; Mean Platelet Volume 9.5; Monocytes # (A) 0.5 k/uL (0-1.0); Monocytes % (A) 5 %; Neutrophils % (A) 91 %; RBC 3.77 m/uL (4.30-5.90); RDW 22.1 % (11.5-15.5); WBC 10.9 k/uL (3.8-10.6)
[2018-10-16 12:18] LABS: Glucose,Whole Blood 150 mg/dL (75-99)
[2018-10-16 12:35] VITALS: BP 130/65; TEMP 97.7
[2018-10-16 12:41] LABS: Platelet Count 98 k/uL (150-450)
[2018-10-16 12:42] LABS: Target Cells Present
--- NOTE | 2018-10-16 13:47 | P.PN ---
Subjective Progress Note Date: 10/16/18 This is a 77-year-old gentleman with history of ischemic heart disease and prior bypass surgery, history of prior pacemaker implantation, acute on chronic renal failure, ischemic cardio myopathy, prior TIA, diabetes, hypertension, hyperlipidemia, presents to the hospital on this occasion with sy mptoms of progressively worsening shortness of breath. [facility], his symptoms did not seem to improve and for this reason he was advised to come to the hospital for further evaluation and treatment. Chest x-ray showed cardiomegaly and mild pulmonary vascular congestion, left base consolidative [place] suggests possible infiltrate. EKG on presentation here shows a ventricular paced rhythm. Blood pressure 108/46 with a heart rate of 90, 96% on 5 L of oxygen. White blood cell count 10.7, hemoglobin 12.5, platelet count 108. D-dimer 0.9, INR 3.0, sodium 135, potassium 6.3, BUN 77 and creatinine 1.7, total bilirubin 1.7, alk phos 202, troponin 0.016, BNP level 18,100. Patient had not been initiated on IV Lasix on presentation here, he is treated currently with antibiotics at the time of my examination this morning, patient complaining of feeling significantly short of breath. 10/12/2018 Patient was seen and examined this morning, still complains of some shortness of breath however he does feel better than he did the day prior. He is diuresing well on IV Lasix, his weight is down 1.5 kg from yesterday. We will continue current dose of IV a 6 along with his other medications, continue to monitor intake, output and daily weights. 10/13/2018 Patient was seen and examined this morning, he continued to diurese well although his weight is not indicated of that. White blood cell count 7.4, hemoglobin 11.8, platelet count 96. Sodium 137, potassium 4.8, BUN 74 and creatinine 1.7. 10/16/2018 Patient seen and examined this morning, creatinine today is up to 2.7 potassium 5.5. We'll discontinue the IV Lasix today, Dr. Camara also had a discussion with the patient regarding possible dialysis. It appears that the patient r egarding possible hospice. Objective - Vital Signs Vital signs: Vital Signs Temp 97.7 F 10/16/18 12:32 Pulse 64 10/16/18 12:32 Resp 16 10/16/18 12:32 BP 130/65 10/16/18 12:32 Pulse Ox 93 L 10/16/18 12:32 Intake & Output 10/15/18 10/16/18 10/16/18 18:59 06:59 18:59 Intake Total 586 280 180 Output Total 150 150 Balance 436 130 180 Weight 107 kg Intake: IV 40 0.9 40 Oral 586 240 180 Output: Urine 150 150 Other: Voiding Method Indwelling Catheter Indwelling Catheter Indwelling Catheter # Emeses 1 - Exam PHYSICAL EXAMINATION: GENERAL: 77-year-old gentleman, complaining of feeling short of breath at the time of my examination HEENT: Head is atraumatic, normocephalic. Pupils equal, round. Sclera anicteric. Conjunctiva are clear. Mucous membranes of the mouth are moist. Neck is supple. There is elevated jugular venous pressure. No carotid bruit is heard. HEART EXAMINATION: Heart S1, S2 normal. No murmur or gallop heard. CHEST EXAMINATION: Lungs reveal improvement in air entry bilaterally with fine crackles heard to the bases ABDOMEN: Soft, nontender. Bowel sounds are heard. No organomegaly noted. EXTREMITIES:[ 2+ peripheral pulses with 1+ evidence of peripheral edema NEUROLOGIC patient is awake, alert and oriented 3 . - Labs CBC & Chem 7: 10/16/18 11:22 10/16/18 06:28 Labs: Abnormal Lab Results - Last 24 Hours (Table) 10/15/18 10/15/18 10/16/18 Range/Units 16:32 20:47 06:28 WBC 11.1 H (3.8-10.6) k/uL RBC 3.88 L (4.30-5.90) m/uL Hgb 11.5 L (13.0-17.5) gm/dL Hct 36.2 L (39.0-53.0) % RDW 22.2 H (11.5-15.5) % Plt Count 105 L (150-450) k/uL Neutrophils # 10.2 H (1.3-7.7) k/uL Lymphocytes # 0.3 L (1.0-4.8) k/uL PT (9.0-12.0) sec INR (<1.2) Sodium (137-145) mmol/L Potassium (3.5-5.1) mmol/L Carbon Dioxide (22-30) mmol/L BUN (9-20) mg/dL Creatinine (0.66-1.25) mg/dL Glucose (74-99) mg/dL POC Glucose (mg/dL) 160 H 171 H (75-99) mg/dL 10/16/18 10/16/18 10/16/18 Range/Units 06:28 06:28 06:30 WBC (3.8-10.6) k/uL RBC (4.30-5.90) m/uL Hgb (13.0-17.5) gm/dL Hct (39.0-53.0) % RDW (11.5-15.5) % Plt Count (150-450) k/uL Neutrophils # (1.3-7.7) k/uL Lymphocytes # (1.0-4.8) k/uL PT 15.2 H (9.0-12.0) sec INR 1.5 H (<1.2) Sodium 135 L (137-145) mmol/L Potassium 5.5 H (3.5-5.1) mmol/L Carbon Dioxide 19 L (22-30) mmol/L BUN 123 H* (9-20) mg/dL Creatinine 2.77 H (0.66-1.25) mg/dL Glucose 142 H (74-99) mg/dL POC Glucose (mg/dL) 178 H (75-99) mg/dL 10/16/18 10/16/18 10/16/18 Range/Units 11:22 11:22 11:54 WBC 10.9 H (3.8-10.6) k/uL RBC 3.77 L (4.30-5.90) m/uL Hgb 11.2 L (13.0-17.5) gm/dL Hct 35.0 L (39.0-53.0) % RDW 22.1 H (11.5-15.5) % Plt Count 98 L (150-450) k/uL Neutrophils # 10.0 H (1.3-7.7) k/uL Lymphocytes # 0.3 L (1.0-4.8) k/uL PT 15.1 H (9.0-12.0) sec INR 1.5 H (<1.2) Sodium (137-145) mmol/L Potassium (3.5-5.1) mmol/L Carbon Dioxide (22-30) mmol/L BUN (9-20) mg/dL Creatinine (0.66-1.25) mg/dL Glucose (74-99) mg/dL POC Glucose (mg/dL) 150 H (75-99) mg/dL Assessment and Plan Plan: Assessment and plan #1 symptoms of progressively worsening shortness of breath with associated bilateral edema, likely exacerbation of congestive heart failure, diastolic in nature, with associated possible pneumonia #2 known history of coronary artery disease with prior bypass surgery #3 hypertension #4 diabetes #5 hyperlipidemia #6 history of permanent pacemaker implantation in 2015 for complete heart block #7 acute on chronic renal failure #8 prior TIA Plan From cardiology's perspective, we will discontinue the IV Lasix at this time. Patient is considering hospice. We will follow him along with you now on an as- needed basis bases only, please don't hesitate to call with any questions. DNP note has been reviewed, I agree with a documented findings and plan of care. Patient was seen and examined.
--- NOTE | 2018-10-16 14:16 | P.PN ---
Subjective Progress Note Date: 10/16/18 Principal diagnosis: Left lower lobe pneumonia, acute COPD exacerbation, congestive heart failure acute on chronic systolic heart failure, right lower lobe atelectasis, hyperkalemia, chronic renal failure 10/16/2018, patient seen and evaluated examined during the rounds BUN/creatinine continue to go up in light of the heart failure and ejection fraction of 20% patient is not being considered for hemodialysis they are looking and reapproaching the idea of hospice nurses stocking to that he is still have shortness of breath he is using BiPAP seems to be helping on denies any cough or sputum production labs reviewed medications reviewed care plan discussed with nurse at length 10/15/2018, patient seen eval examined during the rounds, doing well patient use the BiPAP machine last night has been tolerating very well elevated PT/INR has normalized now INR is 2.1, hemoglobin stable white cell count stable, renal functions noted to be keep on going up his BUN is 100 creatinines 2.36 symptomatically he is improved but renal functions appeared to be worse cardiology is adjusting the Lasix 10/14/2018, patient seen eval reexamined during the rounds his complain of chest pain or shortness of breath improved compared to yesterday he has been getting CPAP from alf did not sleep well last night labs reviewed medications reviewed care plan discussed with staff at length, his chest x-ray from today morning has been reviewed significantly improved compared to baseline admit x- ray 10/13/2018, patient seen eval reexamined during the rounds, overall doing better less short of breath less congested, swelling in the lower extremity has improved patient remains on supplemental oxygen have reviewed medications reviewed 10/12/2018, patient seen eval reexamined during the rounds shortness of breath slightly better cough congestion is better patient swelling of the lower extremity has improved, I have discussed with nursing staff if CPAP machine that he uses at [facility] can be brought over here then we can resume with each night and when necessary during the day that we will expedite the recovery process Since M7-year-old male who was seen evaluated examined on third floor this patient is well-known to me he is a resident of [facility] he has severe sleep apnea he uses BiPAP machine each night and when necessary during the day, he has a chronic hypoxia and on oxygen-dependent ready for 7 significant history of COPD, ischemic heart disease status post CABG for last few days patient has been more short of breath brought into the emergency dep artment for further evaluation he was found to have increased swelling of the lower extremity his BNP level was 18,000 him a chest x-ray performed in the event his department revealed that patient has CHF-like changes with pulmonary vascular congestion and left basilar pneumonia with right subsegmental atelectasis, patient has been placed on broad-spectrum antibiotics, will require breathing treatments and short course of IV steroids as well Objective - Vital Signs Vital signs: Vital Signs Temp 97.7 F 10/16/18 12:32 Pulse 64 10/16/18 12:32 Resp 16 10/16/18 12:32 BP 130/65 10/16/18 12:32 Pulse Ox 93 L 10/16/18 12:32 Intake & Output 10/15/18 10/16/18 10/16/18 18:59 06:59 18:59 Intake Total 586 280 180 Output Total 150 150 Balance 436 130 180 Weight 107 kg Intake: IV 40 0.9 40 Oral 586 240 180 Output: Urine 150 150 Other: Voiding Method Indwelling Catheter Indwelling Catheter Indwelling Catheter # Emeses 1 - Exam Constitutional General appearance: average body habitus, cooperative, disheveled, mild distress - EENT Eyes: anicteric sclerae, EOMI, PERRLA, poor dentition, normal appearance Ears: bilateral: normal - Neck Neck: normal ROM Carotids: bilateral: upstroke normal, bruit absent Thyroid: bilateral: normal size - Respiratory Respiratory: bilateral: diminished, rales, wheezing, prolonged expiration, negative: CTA, dullness, rhonchi, prolonged inspiration - Cardiovascular Rhythm: regular Heart sounds: normal: S1, S2 - Gastrointestinal General gastrointestinal: soft - Integumentary Integumentary: normal - Neurologic Neurologic: CNII-XII intact - Musculoskeletal Musculoskeletal: gait normal, generalized weakness, strength equal bilaterally - Psychiatric Psychiatric: A&O x's 3, appropriate affect, intact judgment & insight - Labs CBC & Chem 7: 10/16/18 11:22 10/16/18 06:28 Labs: Abnormal Lab Results - Last 24 Hours (Table) 10/15/18 10/15/18 10/16/18 Range/Units 16:32 20:47 06:28 WBC 11.1 H (3.8-10.6) k/uL RBC 3.88 L (4.30-5.90) m/uL Hgb 11.5 L (13.0-17.5) gm/dL Hct 36.2 L (39.0-53.0) % RDW 22.2 H (11.5-15.5) % Plt Count 105 L (150-450) k/uL Neutrophils # 10.2 H (1.3-7.7) k/uL Lymphocytes # 0.3 L (1.0-4.8) k/uL PT (9.0-12.0) sec INR (<1.2) Sodium (137-145) mmol/L Potassium (3.5-5.1) mmol/L Carbon Dioxide (22-30) mmol/L BUN (9-20) mg/dL Creatinine (0.66-1.25) mg/dL Glucose (74-99) mg/dL POC Glucose (mg/dL) 160 H 171 H (75-99) mg/dL 10/16/18 10/16/18 10/16/18 Range/Units 06:28 06:28 06:30 WBC (3.8-10.6) k/uL RBC (4.30-5.90) m/uL Hgb (13.0-17.5) gm/dL Hct (39.0-53.0) % RDW (11.5-15.5) % Plt Count (150-450) k/uL Neutrophils # (1.3-7.7) k/uL Lymphocytes # (1.0-4.8) k/uL PT 15.2 H (9.0-12.0) sec INR 1.5 H (<1.2) Sodium 135 L (137-145) mmol/L Potassium 5.5 H (3.5-5.1) mmol/L Carbon Dioxide 19 L (22-30) mmol/L BUN 123 H* (9-20) mg/dL Creatinine 2.77 H (0.66-1.25) mg/dL Glucose 142 H (74-99) mg/dL POC Glucose (mg/dL) 178 H (75-99) mg/dL 10/16/18 10/16/18 10/16/18 Range/Units 11: 11:22 11:54 WBC 10.9 H (3.8-10.6) k/uL RBC 3.77 L (4.30-5.90) m/uL Hgb 11.2 L (13.0-17.5) gm/dL Hct 35.0 L (39.0-53.0) % RDW 22.1 H (11.5-15.5) % Plt Count 98 L (150-450) k/uL Neutrophils # 10.0 H (1.3-7.7) k/uL Lymphocytes # 0.3 L (1.0-4.8) k/uL PT 15.1 H (9.0-12.0) sec INR 1.5 H (<1.2) Sodium (137-145) mmol/L Potassium (3.5-5.1) mmol/L Carbon Dioxide (22-30) mmol/L BUN (9-20) mg/dL Creatinine (0.66-1.25) mg/dL Glucose (74-99) mg/dL POC Glucose (mg/dL) 150 H (75-99) mg/dL Assessment and Plan Assessment: Acute on Chronic renal failure stage stage 4 Left lower lobe pneumonia Acute COPD exacerbation Acute exacerbation of congestive heart failure likely acute on chronic systolic heart failure is Ejection fraction only 20% Right subsegmental lower lobe atelectasis Hyperkalemia Plan: Gentle diuresis Monitor renal function close Optimize cardiac output Bronchodilator IV steroids can be switched to oral prednisone Continue antibiotics with Levaquin and Zosyn left lower lobe pneumonia, can be switched to oral antibiotics Deep breathing exercises incentive spirometry Monitor observe closely renal functions and potassium level Further recommendations pending plan of care as per clinical response of patient Time with Patient: Greater than 30
[2018-10-16 15:31] VITALS: PULSE 84
[2018-10-16] MEDS ORDERED: WARFARIN 3 MG TAB PO ONE (18:00)
[2018-10-16] MEDS ORDERED: WARFARIN 2 MG TAB PO ONE (18:00)
--- NOTE | 2018-10-16 23:11 | P.DS ---
Providers Date of admission: 10/11/18 01:42 Attending physician: Josie Silva Consults: 10/11/18 01:42 Consult Physician Routine Consulting Provider: Clair Truong Consult Reason/Comments: CHF exacerbation Do you want consulting provider notified?: Yes 10/11/18 14:34 Consult Physician Routine Consulting Provider: Jan Pal Consult Reason/Comments: known to you Do you want consulting provider notified?: Yes 10/14/18 09:58 Consult Physician Routine Consulting Provider: Barrera Camara Consult Reason/Comments: elevated creatinine Do you want consulting provider notified?: Yes Primary care physician: [facility] Course: This very pleasant 77-year-old gentleman who comes into the ER for above- mentioned complaint. Patient says that [facility] [place] [facility] He is hard of hearing but is alert oriented 3. He said that for the past few days, he's been having more shortness of breath and usual. His doctor [facility] the [facility] started him on water pills but he was still short of breath and is coughing still so he was brought into the ER for further evaluation and management. Patient otherwise does not complain of any chest pain, no racing heart, no abdominal pain, nausea and vomiting, or diarrhea constipation, no tingling numbness on his extremities, no itch no rash ER course-vitals the time of admission showed temperature 98.4 pulse 96 blood pressure 105/72 satting 96% on 4 L. Labwork on admission showed WAC 10.7 hemoglobin 12.5 platelets 108 d-dimer 0.96 sodium 135 potassium 6.3 B1 77 creatinine 1.78 AST 49 ALT 29 alk phos 202 albumin 4.1. Chest x-ray shows findings suggestive of congestion and also there is left lower lobe obesity indicating possible pneumonia. patient was started on Levaquin and Zosyn, he was also started on Lasix 40 mg daily and admitted to the hospitalist service a further evaluation and management. 10/12/2018 Patient says that her shortness of breath is better. His swelling in the feet is improving No chest pain or racing heart 10/13/2018 Patient shortness of breath is better. Patient is talking much better with less short of breath on talking when compared to yesterday His leg swelling is improving No chest pain or racing heart Subjective: 10/14/2018 This is a pleasant 77 years old male with past medical history of COPD, congestive heart failure presents with signs symptoms of left lower lobe pneumonia and acute COPD exacerbation as well as worsening congestive heart failure. Also patient found to have trending up creatinine. 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 He is also was on Coumadin for history of DVT in his left leg, patient unsure how long ago was that. On admission his INR was supratherapeutic 3.0, today is trending up to 5.2. He was started on Levaquin and Zosyn for his pneumonia. We're going to order a CAT scan of the head to rule out intracranial hemorrhage, since patient was complaining this morning of from frontal headache although it looks more related to his sinus problem. We'll check chest x-ray. Patient is being followed closely by pulmonary and cardiology team. Also consult nephrology team in view of worsening creatinine 10/15/2018 Patient is still feels the same although his more awake and alert today. He still have some dyspnea with coughing. He denies chest pain. His headache looks more controlled. Clinically looks not much change from yesterday. He is on 2 L oxygen which is at home as he confirmed to me today. At 113/68 and heart rate 79. Labs reviewed, CBC is stable hemoglobin. Platelets 102, INR is down to 2.1 today. Creatinine is trending up to 2.36. Nephrology input is appreciated, hold lisinopril and metformin, continue with a small dose of Lasix. Check renal ultrasound. 10/16/2018 Patient is awake, history looks tired and dyspneic. No chest pain. He still have some occasional cough. No headache. Vitals are stable and his saturating 93% on 3 L. Has mild leukocytosis at 11.1 K, platelets stable at 105, his INR is subtherapeutic today at 1.5, we will give 4 mg of Coumadin instead of his usual dose of 3 mg. we will start the patient on heparin drip for bridging. His creatinine is trending up to 2.7, potassium 5.5. Patient given insulin with glucose and bicarb . Also patient provided 1 dose of Lasix 60 mg today by nephrology team. Renal replacement therapy is being considered by [facility]. however he is a poor candidate for such kind of therapy. after i saw the pt and set his management plan , i was called by the bed side RN that pt and his want to go with hospice care i talked to pt and at bed side , they want to proceed with hospice as per they were considering hospice prior to admission to hospital this time because of his low EF at 25% as per , and pt is not improving as he is supposed to be, nephrology team advised pt might not tolerate hemodialysis anyway. beside other complex medical problems the pt and his wanted to proceed with hospice care. which seem reasonable at this pt complex condition and his prognosis is very poor pt was placed on heparin drip for bridging for he has subtherapeutic INR in view of his history of lower extremity DVT. however after pt was transferred to hospice care he started have bleeding from his mouth ( coughing or vomiting). heparin drip was stopped , suction is provided with aspiration precautions. d/w staff hospice care consult is placed , he will be transferred to hospice care and expected to be transferred to his ECF tomorrow with hospice service and care (see exam from today note earlier) Patient Condition at Discharge: Poor Plan - Discharge Summary Discharge Rx Participant: No New Discharge Prescriptions: No Action Docusate [Colace] 100 mg PO DAILY Cholecalciferol [Vitamin D3 (25 Mcg = 1000 Iu)] 1,000 unit PO DAILY@1700 Spironolactone [Aldactone] 25 mg PO DAILY Cyanocobalamin [Vitamin B-12] 1,000 mcg PO DAILY Simvastatin [Zocor] 20 mg PO HS Ranolazine [Ranexa] 500 mg PO BID@0800,1700 Metoprolol Tartrate [Lopressor] 100 mg PO BID@0800,1700 Isosorbide Mononitrate ER [Imdur] 60 mg PO BID@0800,1700 Citalopram Hydrobromide [CeleXA] 10 mg PO DAILY Nitroglycerin Sl Tabs [Nitrostat] 0.4 mg SUBLINGUAL Q5M PRN PRN Reason: Chest Pain Sodium Chloride [Saline Nasal Mist] 1 spray EA NOSTRIL HS Allopurinol [Zyloprim] 100 mg PO DAILY tab Lisinopril [Zestril] 5 mg PO DAILY tab Nasal Gel 1 applic EA NOSTRIL DAILY PRN PRN Reason: DRYNESS Magnesium Hydroxide [Milk of Magnesia Concentrate] 7,200 mg PO DAILY PRN PRN Reason: Constipation Loratadine [Claritin] 10 mg PO DAILY PRN PRN Reason: Allergy Symptoms guaiFENesin [guaiFENesin Oral Solution] 200 mg PO Q4H PRN PRN Reason: Cough Na Phos,M-B/Na Phos,Di-Ba [Fleet Adult] 133 ml RECTAL DAILY PRN PRN Reason: Constipation Bisacodyl [Dulcolax] 10 mg RECTAL DAILY PRN PRN Reason: Constipation metFORMIN HCL [Glucophage] 500 mg PO BID@0800,1700 Furosemide [Lasix] 40 mg PO DAILY Potassium Chloride [Klor-Con 10] 10 meq PO DAILY@0800 Gabapentin [Neurontin] 300 mg PO DAILY Fluticasone Nasal [place] [Flonase Nasal [place]] 1 spray EA NOSTRIL DAILY Warfarin [Coumadin] 3 mg PO MOTH Warfarin Sodium [Coumadin] 2 mg PO SUTUWEFRSA Fluticasone/Vilanterol [Breo Ellipta 100-25 Mcg Inhaler] 1 puff INHALATION RT-DAILY@0800 Aspirin 81 mg PO DAILY@1700 Acetaminophen Tab [Tylenol] 1,000 mg PO HS PRN PRN Reason: Pain Carboxymethylcellulose Sodium [Refresh Tears] 2 drop BOTH EYES DAILY PRN PRN Reason: DRY ITCHY EYES Discharge Medication List Cholecalciferol [Vitamin D3 (25 Mcg = 1000 Iu)] 1,000 unit PO DAILY@1700 05/26/14 [History] Citalopram Hydrobromide [CeleXA] 10 mg PO DAILY 05/26/14 [History] Cyanocobalamin [Vitamin B-12] 1,000 mcg PO DAILY 05/26/14 [History] Docusate [Colace] 100 mg PO DAILY 05/26/14 [History] Isosorbide Mononitrate ER [Imdur] 60 mg PO BID@0800,1700 05/26/14 [History] Metoprolol Tartrate [Lopressor] 100 mg PO BID@0800,1700 05/26/14 [History] Nitroglycerin Sl Tabs [Nitrostat] 0.4 mg SUBLINGUAL Q5M PRN 05/26/14 [History] Ranolazine [Ranexa] 500 mg PO BID@0800,1700 05/26/14 [History] Simvastatin [Zocor] 20 mg PO HS 05/26/14 [History] Sodium Chloride [Saline Nasal Mist] 1 spray EA NOSTRIL HS 05/26/14 [History] Spironolactone [Aldactone] 25 mg PO DAILY 05/26/14 [History] Allopurinol [Zyloprim] 100 mg PO DAILY tab 05/30/14 [Rx] Lisinopril [Zestril] 5 mg PO DAILY tab 05/30/14 [Rx] Acetaminophen Tab [Tylenol] 1,000 mg PO HS PRN 10/10/18 [History] Aspirin 81 mg PO DAILY@1700 10/10/18 [History] Bisacodyl [Dulcolax] 10 mg RECTAL DAILY PRN 10/10/18 [History] Carboxymethylcellulose Sodium [Refresh Tears] 2 drop BOTH EYES DAILY PRN 10/10/18 [History] Fluticasone Nasal [place] [Flonase Nasal [place]] 1 spray EA NOSTRIL DAILY 10/10/18 [History] Fluticasone/Vilanterol [Breo Ellipta 100-25 Mcg Inhaler] 1 puff INHALATION RT- DAILY@0800 10/10/18 [History] Furosemide [Lasix] 40 mg PO DAILY 10/10/18 [History] Gabapentin [Neurontin] 300 mg PO DAILY 10/10/18 [History] Loratadine [Claritin] 10 mg PO DAILY PRN 10/10/18 [History] Magnesium Hydroxide [Milk of Magnesia Concentrate] 7,200 mg PO DAILY PRN 10/10/18 [History] Na Phos,M-B/Na Phos,Di-Ba [Fleet Adult] 133 ml RECTAL DAILY PRN 10/10/18 [History] Nasal Gel 1 applic EA NOSTRIL DAILY PRN 10/10/18 [History] Potassium Chloride [Klor-Con 10] 10 meq PO DAILY@0800 10/10/18 [History] Warfarin Sodium [Coumadin] 2 mg PO SUTUWEFRSA 10/10/18 [History] Warfarin [Coumadin] 3 mg PO MOTH 10/10/18 [History] guaiFENesin [guaiFENesin Oral Solution] 200 mg PO Q4H PRN 10/10/18 [History] metFORMIN HCL [Glucophage] 500 mg PO BID@0800,1700 10/10/18 [History] Follow up Appointment(s)/Referral(s): Lucho Mcadams MD [Primary Care Provider] - 1-2 days Discharge Disposition: [facility]CH TO [facility]
== END 2018-10-16 16:52 | disposition hospice, inpatient (51) | DRG 291 ==
LOC: EC 22:35 → 3SCARD 10-11 01:42
PROVIDERS: ADMIT Hospitalist; ATTEND Hospitalist
DX: I13.0 Hypertensive heart and chronic kidney disease with heart failure and stage 1 through stage 4 chronic kidney disease, or unspecified chronic kidney disease (principal); J18.1 Lobar pneumonia, unspecified organism; J96.21 Acute and chronic respiratory failure with hypoxia; I50.23 Acute on chronic systolic (congestive) heart failure; E87.2 Acidosis; I47.1 Supraventricular tachycardia; I48.92 Unspecified atrial flutter; I69.354 Hemiplegia and hemiparesis following cerebral infarction affecting left non-dominant side; J44.0 Chronic obstructive pulmonary disease with (acute) lower respiratory infection; J44.1 Chronic obstructive pulmonary disease with (acute) exacerbation; J98.11 Atelectasis; N17.9 Acute kidney failure, unspecified; N18.4 Chronic kidney disease, stage 4 (severe); E11.22 Type 2 diabetes mellitus with diabetic chronic kidney disease; E78.5 Hyperlipidemia, unspecified; E87.5 Hyperkalemia; G47.33 Obstructive sleep apnea (adult) (pediatric); H91.90 Unspecified hearing loss, unspecified ear; I08.2 Rheumatic disorders of both aortic and tricuspid valves; I25.10 Atherosclerotic heart disease of native coronary artery without angina pectoris; I25.2 Old myocardial infarction; I25.5 Ischemic cardiomyopathy; I27.20 Pulmonary hypertension, unspecified; I48.0 Paroxysmal atrial fibrillation; J01.90 Acute sinusitis, unspecified; R79.1 Abnormal coagulation profile; T45.515A Adverse effect of anticoagulants, initial encounter; T50.2X5A Adverse effect of carbonic-anhydrase inhibitors, benzothiadiazides and other diuretics, initial encounter; Z51.5 Encounter for palliative care; Z79.01 Long term (current) use of anticoagulants; Z79.52 Long term (current) use of systemic steroids; Z79.82 Long term (current) use of aspirin; Z79.84 Long term (current) use of oral hypoglycemic drugs; Z79.899 Other long term (current) drug therapy; Z82.49 Family history of ischemic heart disease and other diseases of the circulatory system; Z86.718 Personal history of other venous thrombosis and embolism; Z87.891 Personal history of nicotine dependence; Z95.0 Presence of cardiac pacemaker; Z95.1 Presence of aortocoronary bypass graft; Z99.81 Dependence on supplemental oxygen; Z79.51 Long term (current) use of inhaled steroids; R33.9 Retention of urine, unspecified
CPT/HCPCS: 36415; 70450; 71045; 76770; 80048; 80053; 81003; 83036; 83735; 83880; 84132; 84484; 85025; 85027; 85379; 85610; 85730; 93306; 94640; 94760; 96365; 96375; 99285

== ENCOUNTER 2018-10-16 13:46 | Inpatient (IN) | payer MEDICAID ==
[2018-10-16] MEDS ORDERED: LORazepam 2 MG/ML INJ IV PRN (15:03)
[2018-10-16] MEDS ORDERED: ONDANSETRON 4 MG/2 ML VIAL IVP PRN (15:03)
[2018-10-16] MEDS ORDERED: ACETAMINOPHEN SUPPOSITORY 650 MG SUPP RECTAL PRN (15:03)
[2018-10-16] MEDS ORDERED: IPRATROPIUM-ALBUTEROL 3 ML NEB INHALATION SCH (16:00)
[2018-10-16] MEDS ORDERED: SCOPOLAMINE 1.5MG/72HR PATCH TRANSDERM SCH (16:00)
[2018-10-16] MEDS ORDERED: FUROSEMIDE 10 MG/ML 2 ML VIAL IV ONE (16:00)
[2018-10-16] MEDS: guaiFENesin-Coden 100-10MG/5ML 10 ML CUP PO SCH ×3 (18:15→23:30)
[2018-10-16] MEDS: DOCUSATE 100 MG CAP PO SCH (20:44)
[2018-10-16] MEDS: methylPREDNISolone SOD SUCCI 40 MG/ML 1 ML VIAL IV SCH (23:07)
[2018-10-16] MEDS: FUROSEMIDE 10 MG/ML 2 ML VIAL IV SCH (23:07)
[2018-10-16] MEDS: ATROPINE OPHTH SOLN 1% 5ML BTL SUBLINGUAL PRN (23:38)
[2018-10-16] MEDS: MORPHINE SULFATE 2 MG/ML SYRINGE IVP PRN (23:52)
[2018-10-17] MEDS: ATROPINE OPHTH SOLN 1% 5ML BTL SUBLINGUAL PRN (04:21)
[2018-10-17] MEDS: MORPHINE SULFATE 2 MG/ML SYRINGE IVP PRN ×2 (04:22→09:39)
[2018-10-17 06:07] VITALS: BP 121/59; TEMP 97.1
[2018-10-17 06:08] VITALS: PULSE 62
[2018-10-17] MEDS: guaiFENesin-Coden 100-10MG/5ML 10 ML CUP PO SCH ×2 (06:25→18:48)
--- NOTE | 2018-10-17 09:02 | P.HPIM ---
History of Present Illness This is a pleasant 77 years old male with several medical problems including COPD, congestive heart failure, CVA/TIA, coronary artery disease, diabetes mellitus, chronic kidney disease. He was just discharged from medical service yesterday while he was next in hospital and admitted to hospice at the same time. He was admitted on 10/12/2018 for left lower lobe pneumonia and acute COPD exacerbation as well as worsening congestive heart failure and worsening renal function, with coagulopathy and bleeding. Patient did not improve significantly although his been receiving appropriate treatment and has been followed by several consultants including cardiology, pulmonary and nephrology services. Eventually yesterday the patient and the decided to admit him to hospice as he needed dialysis for his worsening renal function, well he is a poor candidate for such therapy. Patient and at bedside told me they want to do hospice care as there were considering that given coming to the hospital while he was an ECF. Patient was discharged for medical services today and admitted to the hospice service. Today patient daughter and other family members were at bedside, patient was unresponsive. Medication for hospice care as has already been initiated. Patient gets worsening quickly and he became unresponsive this morning. Expected demise in hours or days . Questions from and family members were answered to their satisfaction, sympathy is a provided for the family. and family agree with the plan of treatment Review of Systems applicable as patient is unresponsive Past Medical History Past Medical History: Coronary Artery Disease (CAD), CVA/TIA, Diabetes Mellitus, Myocardial Infarction (PR) Additional Past Medical History / Comment(s): Congestive heart failure and cardiomyopathy Last Myocardial Infarction Date:: 1999 History of Any Multi-Drug Resistant Organisms: None Reported Past Surgical History: Appendectomy, Coronary Bypass/CABG, Tonsillectomy Additional Past Surgical History / Comment(s): CABG x5 1994 Past Anesthesia/Blood Transfusion Reactions: No Reported Reaction Past Psychological History: No Psychological Hx Reported Smoking Status: Former smoker Past Alcohol Use History: None Reported Past Drug Use History: None Reported - Past Family History Mother Family Medical History: Chest Pain / Angina, Coronary Artery Disease (CAD) Medications and Allergies Home Medications Medication Instructions Recorded Confirmed Type Cholecalciferol [Vitamin D3 (25 1,000 unit PO DAILY@1700 05/26/14 10/16/18 History Mcg = 1000 Iu)] Citalopram Hydrobromide [CeleXA] 10 mg PO DAILY 05/26/14 10/16/18 History Cyanocobalamin [Vitamin B-12] 1,000 mcg PO DAILY 05/26/14 10/16/18 History Docusate [Colace] 100 mg PO DAILY 05/26/14 10/16/18 History Isosorbide Mononitrate ER [Imdur] 60 mg PO BID@0800,1700 05/26/14 10/16/18 History Metoprolol Tartrate [Lopressor] 100 mg PO BID@0800,1700 05/26/14 10/16/18 History Nitroglycerin Sl Tabs [Nitrostat] 0.4 mg SUBLINGUAL Q5M PRN 05/26/14 10/16/18 History Ranolazine [Ranexa] 500 mg PO BID@0800,1700 05/26/14 10/16/18 History Simvastatin [Zocor] 20 mg PO HS 05/26/14 10/16/18 History Sodium Chloride [Saline Nasal Mist] 1 spray EA NOSTRIL HS 05/26/14 10/16/18 History Spironolactone [Aldactone] 25 mg PO DAILY 05/26/14 10/16/18 History Allopurinol [Zyloprim] 100 mg PO DAILY tab 05/30/14 10/16/18 Rx Lisinopril [Zestril] 5 mg PO DAILY tab 05/30/14 10/16/18 Rx Acetaminophen Tab [Tylenol] 1,000 mg PO HS PRN 10/10/18 10/16/18 History Aspirin 81 mg PO DAILY@1700 10/10/18 10/16/18 History Bisacodyl [Dulcolax] 10 mg RECTAL DAILY PRN 10/10/18 10/16/18 History Carboxymethylcellulose Sodium 2 drop BOTH EYES DAILY PRN 10/10/18 10/16/18 History [Refresh Tears] Fluticasone Nasal [place] [Flonase 1 spray EA NOSTRIL DAILY 10/10/18 10/16/18 History Nasal [place]] Fluticasone/Vilanterol [Breo 1 puff INHALATION RT-DAILY@0800 10/10/18 10/16/18 History Ellipta 100-25 Mcg Inhaler] Furosemide [Lasix] 40 mg PO DAILY 10/10/18 10/16/18 History Gabapentin [Neurontin] 300 mg PO DAILY 10/10/18 10/16/18 History Loratadine [Claritin] 10 mg PO DAILY PRN 10/10/18 10/16/18 History Magnesium Hydroxide [Milk of 7,200 mg PO DAILY PRN 10/10/18 10/16/18 History Magnesia Concentrate] Na Phos,M-B/Na Phos,Di-Ba [Fleet 133 ml RECTAL DAILY PRN 10/10/18 10/16/18 History Adult] Nasal Gel 1 applic EA NOSTRIL DAILY PRN 10/10/18 10/16/18 History Potassium Chloride [Klor-Con 10] 10 meq PO DAILY@0800 10/10/18 10/16/18 History Warfarin Sodium [Coumadin] 2 mg PO SUTUWEFRSA 10/10/18 10/16/18 History Warfarin [Coumadin] 3 mg PO MOTH 10/10/18 10/16/18 History guaiFENesin [guaiFENesin Oral 200 mg PO Q4H PRN 10/10/18 10/16/18 History Solution] metFORMIN HCL [Glucophage] 500 mg PO BID@0800,1700 10/10/18 10/16/18 History Allergies Allergy/AdvReac Type Severity Reaction Status Date / Time No Known Allergies Allergy Verified 10/16/18 18:31 Physical Exam Vitals: Vital Signs Temp Pulse Pulse Resp BP Pulse Ox 10/17/18 04:00 62 22 88 L 10/17/18 00:00 97.1 F L 62 22 121/59 88 L 10/16/18 20:00 97.5 F L 86 21 119/63 89 L 10/16/18 17:22 97.6 F 57 L 20 129/64 89 L Intake and Output 10/16/18 10/17/18 10/17/18 22:59 06:59 14:59 Intake Total 0 Output Total 580 Balance -580 0 Intake: Oral 0 Output: Urine 580 Other: Voiding Method Indwelling Catheter Indwelling Catheter # Voids 500 Weight 107 kg GENERAL: Patient is unresponsive, with deep breathing. HEENT: Pupils are round and equally reacting to light. EOMI. No scleral icterus. No conjunctival pallor. Normocephalic, atraumatic. No pharyngeal erythema. No thyromegaly. CARDIOVASCULAR: S1 and S2 present. No murmurs, rubs, or gallops. PULMONARY: Chest is clear to auscultation, coarse crepitation and scattered wheezing ABDOMEN: Soft, nontender, nondistended, normoactive bowel sounds. No palpable organomegaly. MUSCULOSKELETAL: No joint swelling or deformity. EXTREMITIES: No cyanosis, clubbing, or pedal edema. NEUROLOGICAL: Gross neurological examination did not reveal any focal deficits. SKIN: No rashes. Assessment and Plan Assessment: End of life care, hospice End-stage renal disease, poor candidate for dialysis Advanced COPD Left lower lobe pneumonia Advanced congestive heart failure disease, with ejection fraction 20-25% Hyperkalemia Coagulopathy secondary to Coumadin History of DVT on Coumadin Chronic hypoxic respiratory failure secondary to above Plan: This is a 77 years old male with several complicated and advanced medical problems, patient showed poor response to therapy. Patient was admitted for hospice care. Continue with medication as per protocol., Pain medicine, scopolamine patch, antiemetic, patient is DO NOT RESUSCITATE, no code Discussed with family at bedside, they believe the patient is comfortable and they cleared with the plan of care. Family medical team thinks patient demise in hours or days. Emotional support is provided for the family
[2018-10-17] MEDS: DOCUSATE 100 MG CAP PO SCH (09:31)
[2018-10-17] MEDS: FUROSEMIDE 10 MG/ML 2 ML VIAL IV SCH (09:35)
[2018-10-17] MEDS: methylPREDNISolone SOD SUCCI 40 MG/ML 1 ML VIAL IV SCH (09:35)
[2018-10-17 11:42] VITALS: RESP 16
[2018-10-17] MEDS ORDERED: MORPHINE SULFATE 2 MG/ML SYRINGE IVP PRN (12:05)
[2018-10-17] MEDS ORDERED: SCOPOLAMINE 1.5MG/72HR PATCH TRANSDERM SCH (12:30)
--- NOTE | 2018-10-18 07:33 | P.DS ---
Providers Date of admission: 10/16/18 16:58 Attending physician: Josie Silva Primary care physician: Lucho Mcadams Hospital Course: Diagnoses: End of life care, hospice End-stage renal disease, poor candidate for dialysis Advanced COPD Left lower lobe pneumonia Advanced congestive heart failure disease, with ejection fraction 20-25% Hyperkalemia Coagulopathy secondary to Coumadin History of DVT on Coumadin Chronic hypoxic respiratory failure secondary to above Hospital course: This is a pleasant 77 years old male with several medical problems including COPD, congestive heart failure, CVA/TIA, coronary artery disease, diabetes mellitus, chronic kidney disease. He was just discharged from medical service yesterday while he was next in hospital and admitted to hospice at the same time. He was admitted on 10/12/2018 for left lower lobe pneumonia and acute COPD exacerbation as well as worsening congestive heart failure and worsening renal function, with coagulopathy and bleeding. Patient did not improve significantly although his been receiving appropriate treatment and has been followed by several consultants including cardiology, pulmonary and nephrology services. Eventually yesterday the patient and the decided to admit him to hospice as he needed dialysis for his worsening renal function, well he is a poor candidate for such therapy. Patient and at bedside told me they want to do hospice care as there were considering that given coming to the hospital while he was an ECF. Patient was discharged for medical services today and admitted to the hospice service. Family were in agreement with the hospice treatment plan. Eventually patient on 10/17/2018. Plan - Discharge Summary New Discharge Prescriptions: No Action Docusate [Colace] 100 mg PO DAILY Cholecalciferol [Vitamin D3 (25 Mcg = 1000 Iu)] 1,000 unit PO DAILY@1700 Spironolactone [Aldactone] 25 mg PO DAILY Cyanocobalamin [Vitamin B-12] 1,000 mcg PO DAILY Simvastatin [Zocor] 20 mg PO HS Ranolazine [Ranexa] 500 mg PO BID@0800,1700 Metoprolol Tartrate [Lopressor] 100 mg PO BID@0800,1700 Isosorbide Mononitrate ER [Imdur] 60 mg PO BID@0800,1700 Citalopram Hydrobromide [CeleXA] 10 mg PO DAILY Nitroglycerin Sl Tabs [Nitrostat] 0.4 mg SUBLINGUAL Q5M PRN PRN Reason: Chest Pain Sodium Chloride [Saline Nasal Mist] 1 spray EA NOSTRIL HS Allopurinol [Zyloprim] 100 mg PO DAILY tab Lisinopril [Zestril] 5 mg PO DAILY tab Nasal Gel 1 applic EA NOSTRIL DAILY PRN PRN Reason: DRYNESS Magnesium Hydroxide [Milk of Magnesia Concentrate] 7,200 mg PO DAILY PRN PRN Reason: Constipation Loratadine [Claritin] 10 mg PO DAILY PRN PRN Reason: Allergy Symptoms guaiFENesin [guaiFENesin Oral Solution] 200 mg PO Q4H PRN PRN Reason: Cough Na Phos,M-B/Na Phos,Di-Ba [Fleet Adult] 133 ml RECTAL DAILY PRN PRN Reason: Constipation Bisacodyl [Dulcolax] 10 mg RECTAL DAILY PRN PRN Reason: Constipation metFORMIN HCL [Glucophage] 500 mg PO BID@0800,1700 Furosemide [Lasix] 40 mg PO DAILY Potassium Chloride [Klor-Con 10] 10 meq PO DAILY@0800 Gabapentin [Neurontin] 300 mg PO DAILY Fluticasone Nasal [place] [Flonase Nasal [place]] 1 spray EA NOSTRIL DAILY Warfarin [Coumadin] 3 mg PO MOTH Warfarin Sodium [Coumadin] 2 mg PO SUTUWEFRSA Fluticasone/Vilanterol [Breo Ellipta 100-25 Mcg Inhaler] 1 puff INHALATION RT-DAILY@0800 Aspirin 81 mg PO DAILY@1700 Acetaminophen Tab [Tylenol] 1,000 mg PO HS PRN PRN Reason: Pain Carboxymethylcellulose Sodium [Refresh Tears] 2 drop BOTH EYES DAILY PRN PRN Reason: DRY ITCHY EYES Discharge Medication List Cholecalciferol [Vitamin D3 (25 Mcg = 1000 Iu)] 1,000 unit PO DAILY@1700 05/26/14 [History] Citalopram Hydrobromide [CeleXA] 10 mg PO DAILY 05/26/14 [History] Cyanocobalamin [Vitamin B-12] 1,000 mcg PO DAILY 05/26/14 [History] Docusate [Colace] 100 mg PO DAILY 05/26/14 [History] Isosorbide Mononitrate ER [Imdur] 60 mg PO BID@0800,1700 05/26/14 [History] Metoprolol Tartrate [Lopressor] 100 mg PO BID@0800,1700 05/26/14 [History] Nitroglycerin Sl Tabs [Nitrostat] 0.4 mg SUBLINGUAL Q5M PRN 05/26/14 [History] Ranolazine [Ranexa] 500 mg PO BID@0800,1700 05/26/14 [History] Simvastatin [Zocor] 20 mg PO HS 05/26/14 [History] Sodium Chloride [Saline Nasal Mist] 1 spray EA NOSTRIL HS 05/26/14 [History] Spironolactone [Aldactone] 25 mg PO DAILY 05/26/14 [History] Allopurinol [Zyloprim] 100 mg PO DAILY tab 05/30/14 [Rx] Lisinopril [Zestril] 5 mg PO DAILY tab 05/30/14 [Rx] Acetaminophen Tab [Tylenol] 1,000 mg PO HS PRN 10/10/18 [History] Aspirin 81 mg PO DAILY@1700 10/10/18 [History] Bisacodyl [Dulcolax] 10 mg RECTAL DAILY PRN 10/10/18 [History] Carboxymethylcellulose Sodium [Refresh Tears] 2 drop BOTH EYES DAILY PRN 10/10/18 [History] Fluticasone Nasal [place] [Flonase Nasal [place]] 1 spray EA NOSTRIL DAILY 10/10/18 [History] Fluticasone/Vilanterol [Breo Ellipta 100-25 Mcg Inhaler] 1 puff INHALATION RT- DAILY@0800 10/10/18 [History] Furosemide [Lasix] 40 mg PO DAILY 10/10/18 [History] Gabapentin [Neurontin] 300 mg PO DAILY 10/10/18 [History] Loratadine [Claritin] 10 mg PO DAILY PRN 10/10/18 [History] Magnesium Hydroxide [Milk of Magnesia Concentrate] 7,200 mg PO DAILY PRN 10/10/18 [History] Na Phos,M-B/Na Phos,Di-Ba [Fleet Adult] 133 ml RECTAL DAILY PRN 10/10/18 [History] Nasal Gel 1 applic EA NOSTRIL DAILY PRN 10/10/18 [History] Potassium Chloride [Klor-Con 10] 10 meq PO DAILY@0800 10/10/18 [History] Warfarin Sodium [Coumadin] 2 mg PO SUTUWEFRSA 10/10/18 [History] Warfarin [Coumadin] 3 mg PO MOTH 10/10/18 [History] guaiFENesin [guaiFENesin Oral Solution] 200 mg PO Q4H PRN 10/10/18 [History] metFORMIN HCL [Glucophage] 500 mg PO BID@0800,1700 10/10/18 [History] Discharge Disposition: - Preliminary Cause of Preliminary Cause of : End-stage kidney disease and heart disease, hospice
== END 2018-10-17 21:03 | disposition expired | DRG 951 ==
LOC: 3SCARD 16:58
PROVIDERS: ADMIT Hospitalist; ATTEND Hospitalist
DX: Z51.5 Encounter for palliative care (principal); J18.9 Pneumonia, unspecified organism; N18.6 End stage renal disease; I42.9 Cardiomyopathy, unspecified; J96.11 Chronic respiratory failure with hypoxia; J44.0 Chronic obstructive pulmonary disease with (acute) lower respiratory infection; I13.2 Hypertensive heart and chronic kidney disease with heart failure and with stage 5 chronic kidney disease, or end stage renal disease; E11.22 Type 2 diabetes mellitus with diabetic chronic kidney disease; E87.5 Hyperkalemia; Z86.73 Personal history of transient ischemic attack (TIA), and cerebral infarction without residual deficits; I25.10 Atherosclerotic heart disease of native coronary artery without angina pectoris; I25.2 Old myocardial infarction; I50.9 Heart failure, unspecified; R79.1 Abnormal coagulation profile; T45.515A Adverse effect of anticoagulants, initial encounter; Z66 Do not resuscitate; Z79.01 Long term (current) use of anticoagulants; Z79.82 Long term (current) use of aspirin; Z79.84 Long term (current) use of oral hypoglycemic drugs; Z79.899 Other long term (current) drug therapy; Z82.49 Family history of ischemic heart disease and other diseases of the circulatory system; Z86.718 Personal history of other venous thrombosis and embolism; Z87.891 Personal history of nicotine dependence; Z95.1 Presence of aortocoronary bypass graft